=== PATIENT | male | born 1960 | race Caucasian/White ===

== ENCOUNTER → 2021-01-06 11:05 | Outpatient (CLI) | payer OTHER, SELFPAY ==
--- NOTE | ~2021-01-06 | US_ITS ---
US abdomen complete EXAMINATION: US Abdomen Complete INDICATION: Epigastric episodes PROCEDURE: Realtime High Resolution abdomen ultrasound. COMPARISON: No prior studies for comparison FINDINGS: Gallbladder within normal limits. No gallstones, gallbladder wall thickening or biliary di latation. There is a small amount of pericholecystic fluid. Common bile duct measures 5 mm. Liver echotexture is increased, consistent with fatty infiltration.. Pancreas within normal limits. Pancreatic tail is obscured by bowel gas. Spleen is enlarged measuring 13.3 cm. Renal echotexture i s within normal limits bilaterally without hydronephrosis, contour deforming mass or renal stone. Rig ht kidney measures 12.2 cm. Left kidney measures 13.4 cm. There are left renal cysts. Visualized aspects of the aorta and IVC are within normal limits. Portal vein is patent. No sonograph ic Miner's sign indicated by the technologist. IMPRESSION: 1: Hepatic steatosis. 2: Splenomegaly. 3: Possible pericholecystic fluid. Reviewed, dictated and finalized at location B.
== END ==
PROVIDERS: PCP Family Medicine Adolescent Medicine; Visit Provider Family Medicine Adolescent Medicine
DX: R10.13 Epigastric pain (principal); K76.0 Fatty (change of) liver, not elsewhere classified; R16.1 Splenomegaly, not elsewhere classified
CPT/HCPCS: 76700

== ENCOUNTER → 2021-01-11 12:33 | Outpatient (CLI) | payer OTHER, SELFPAY ==
--- NOTE | ~2021-01-11 | CT_ITS ---
EXAMINATION: CT abdomen w con INDICATION: Epigastric abdominal pain TECHNIQUE: Computed tomographic images of the abdomen were obtained after the administration of 100 c c of Omnipaque 350 intravenous contrast. The dose-length product (DLP) was 824.01 mGy-cm. Automated e xposure control and iterative reconstruction technique were employed. COMPARISON: 09/05/2007 FINDINGS: Minimal dependent atelectasis is present in the lung bases. The heart size is normal. The l iver is diffusely low in attenuation when compared with the spleen, consistent with hepatic steatosis . The spleen, pancreas, gallbladder, and adrenal glands are normal. Nonobstructing stones of the righ t kidney measure up to 6 mm. Cysts of the left kidney measure up to 2.6 cm there are no pathologicall y enlarged abdominal lymph nodes. There is an epigastric hernia to the right of midline containing fa t. A fat-containing umbilical hernia is also noted. There is mild lumbar spondylosis. There is no chanel e intraperitoneal gas or evidence of bowel obstruction. The appendix is normal. IMPRESSION: 1. No CT correlate for the patient's symptoms. 2. Fat-containing epigastric hernia to the right of midline in umbilical hernia containing fat. Reviewed, dictated and finalized at location A.
[2021-01-11 13:09] LABS: Estimated Glomerular Filt Rate > 60
== END ==
PROVIDERS: PCP Family Medicine Adolescent Medicine; Visit Provider Family Medicine Adolescent Medicine
DX: R10.13 Epigastric pain (principal); K43.9 Ventral hernia without obstruction or gangrene; N28.1 Cyst of kidney, acquired; K42.9 Umbilical hernia without obstruction or gangrene; M47.816 Spondylosis without myelopathy or radiculopathy, lumbar region
CPT/HCPCS: 74160; Q9967

== ENCOUNTER 2021-05-17 22:47 | Emergency (ER) | payer OTHER, SELFPAY ==
[2021-05-17] VITALS (8 sets, daily range): BP systolic 152–186; BP diastolic 112–116; PULSE 79–88; RESP 10–19; TEMP 37.1; O2SAT 98–100
[2021-05-17 23:32] LABS: Basophils Percent Auto 0.5 % (0.2-1.2); Eosinophils Absolute Auto 0.1 K/mm3 (0-0.3); Eosinophils Percent Auto 1.2 % (0-4.4); Hematocrit 41.9 % (42.0-52.0); Hemoglobin 13.8 g/dL (14.0-18.0); Immature Granulocyte Absolute 0.02 K/mm3 (0.00-0.031); Immature Granulocyte Percent A 0.3 % (0-0.5); Lymphocytes Absolute Auto 1.24 K/mm3 (0.9-3.2); Mean Corpuscular HGB Conc 32.9 g/dl (32-36); Mean Corpuscular Hemoglobin 31.1 pg (26-34); Mean Corpuscular Volume 94.4 fl (80-100); Mean Platelet Volume 9.7 fl (7.4-10.4); Monocytes Absolute Auto 0.6 K/mm3 (0.1-0.6); Monocytes Percent Auto 8.6 % (2.6-8.5); Neutrophils Absolute Auto 4.6 K/mm3 (1.3-6.7); Neutrophils Percent Auto 70.4 % (45.5-73.1); Platelet Count Result 228 k/mm3 (150-375); Red Blood Count 4.44 M/mm3 (4.6-6.20); Red Cell Distribution Width 12.3 % (11.5-14.5); White Blood Count 6.5 K/mm3 (4.5-10.0)
[2021-05-17 23:41] LABS: Alanine Aminotransferase 27 U/L (4-50); Albumin Level 4.5 g/dL (3.5-5.1); Alkaline Phosphatase 61 U/L (38-126); Anion Gap 4 mmol/L (8-16); Aspartate Amino Transferase 28 U/L (17-59); Bilirubin,Total 0.8 mg/dL (0.2-1.3); Blood Urea Nitrogen 14 mg/dL (9-20); Calcium 8.9 mg/dL (8.4-10.2); Carbon Dioxide 29 mmol/L (22-30); Chloride 102 mmol/L (98-107); Estimated CRCL calculation 108 ml/min; Estimated Glomerular Filt Rate > 60; Glucose 123 mg/dL (65-110); Lipase 57 U/L (23-300); Potassium 4.3 mmol/L (3.4-5.0); Sodium 135 mmol/L (137-145)
[2021-05-18] VITALS: PULSE 87; RESP 25; O2SAT 99
[2021-05-18 00:02] LABS: Add Urine Microscopic? YES; Appearance Urine Clear (Clear); Bilirubin Urine Negative (Negative); Blood Urine 1+ (Negative); Color Urine Straw (Yellow); Glucose Urine UA Negative (Negative); Ketones Urine Negative (Negative); Leukocyte Esterase Ur Negative LEU/UL (Negative); Nitrate Urine Negative (Negative); Protein Urine Negative (Negative); Urobilinogen Urine Negative mg/dL (<2.0); WBC Urine 0-3 /hpf
[2021-05-18 00:15] VITALS: PULSE 87; RESP 14; O2SAT 100
[2021-05-18 00:16] VITALS: BP 155/97; PULSE 87; RESP 16; O2SAT 100
[2021-05-18] MEDS: LIDOCAINE HCL 2% VISC SOLN 15 ML UDC 20 ML PO (00:20)
[2021-05-18] MEDS: MAG HYDROX/AL HYDROX/SIMETH 30 ML UDC PO (00:20)
--- NOTE | 2021-05-18 00:44 | ED.ABDPAIN ---
HPI - Abdominal Pain General Chief Complaint: Abdominal Pain Stated Complaint: abd pain Time Seen by Provider: 05/18/21 00:07 Source: patient History of Present Illness HPI narrative: Patient presents with epigastric pain radiating to his right abdomen. Pain was severe came on after drinking this evening also radiated to his back there is no clear aggravating or alleviating factors of the time of ER arrival he reports his symptoms were starting to improve. Reports a history of right upper quadrant pain being evaluated his primary care doctor without clear etiology. Denies any nausea vomiting or diarrhea. Denies any recent fevers, cough, congestion denies any prior abdominal surgeries. Related Data Allergies Allergy/AdvReac Type Severity Reaction Status Date / Time Quinolones Allergy Severe TOOK 1X Verified 05/18/21 00:13 PILL 06/25/07 Review of Systems Review of Systems: CONSTITUTIONAL: Denies fever, chills, or sweats. EYES: Denies visual changes, redness, or discharge. ENT: Denies rhinorrhea, congestion, sore throat, or otalgia. CARDIOVASCULAR: Denies chest pain, palpitations, or edema. RESPIRATORY: Denies cough or dyspnea. GASTROINTESTINAL: Denies nausea, vomiting, or diarrhea. GENITOURINARY: Denies dysuria or hematuria. SKIN: Denies rash or itching. MUSCULOSKELETAL: Denies back pain, joint pain, or myalgia. NEUROLOGIC: Denies headache, numbness, dizziness, or weakness. PSYCHIATRIC: Denies anxiety or depression. All systems reviewed & are unremarkable except as noted in HPI and below PMFSH Past Medical History Medical History (Updated 05/18/21 @ 00:55 by Mohit Hitchcock MD) GERD (gastroesophageal reflux disease) Social History Social History (Updated 05/18/21 @ 00:52 by Mohit Hitchcock MD) Living arrangements: with family Exam Narrative: GENERAL: Well-appearing, well-nourished, and in no acute distress. HEAD: Normocephalic, atraumatic. EYES: PERRLA and EOMI. ENT: Nares clear, no rhinorrhea or epistaxis. Mucous membranes moist. NECK: Supple. No masses. No JVD CHEST: Clear to auscultation. No respiratory distress. No wheezes rales or rhonchi HEART: Regular rate and rhythm. No murmur heard. Normal peripheral pulses. ABDOMEN: Soft, minimal pain with deep palpation most noted in the epigastric area negative Miner's nondistended, normal active bowel sounds. EXTREMITIES: Normal range of motion. No edema. SKIN: Warm, dry, no rash. NEURO: No focal deficits. Alert and oriented x3. PSYCH: Normal mood and affect. Course Reevaluation(s) Reevaluation #1: Results reviewed with patient. Patient feels much improved after GI cocktail. Patient was offered additional imaging however with negative work-up and reassuring exam there is likely low [id number] patient is comfortable without imaging. Patient is comfortable outpatient plan. Date: 05/18/21 Time: 00:53 Vital Signs Vital signs: Vital Signs Pulse Rate 85 05/17/21 22:57 Respiratory Rate 10 L 05/17/21 22:57 Pulse Oximetry 100 05/17/21 22:57 Temperature 37.1 C 05/17/21 22:58 Pulse Rate 85 05/18/21 01:31 Respiratory Rate 15 05/18/21 01:31 Blood Pressure 136/93 H 05/18/21 01:31 Pulse Oximetry 98 05/18/21 01:31 MDM - Abdominal Pain MDM Narrative Medical decision making narrative: H&P as above, vss, pt looks clinically well, exam with nonacute abdomen, labs reassuring, img offered, additional labs/img considered, symptomatic relief available as needed, patient treated with GI cocktail on reevaluation pt continues to looks clinically well and reports large improvement in symptoms. Suspect gastritis or reflux, dns pancreatitis, cholecystitis, bowel obstruction, perforation, severe sepsis. plan to tx/monitor as op w/ pcm f/u findings/plan discussed with pt, pt agree/comfortable with plan, return precautions given Lab Data Result diagrams: 05/17/21 23:18 05/17/21 23:18 Labs: Lab Results 05/17
[2021-05-18 01:31] VITALS: BP 136/93; PULSE 85; RESP 15; O2SAT 98
== END 2021-05-18 01:33 | disposition home or self-care (01) ==
PROVIDERS: Emergency Provider Emergency Medicine; PCP Family Medicine Adolescent Medicine
DX: R10.9 Unspecified abdominal pain (principal); K21.9 Gastro-esophageal reflux disease without esophagitis
CPT/HCPCS: 36415; 80053; 81001; 83690; 85025; 99283; A9270

== ENCOUNTER 2021-05-19 08:58 | Observation (INO) | payer OTHER, SELFPAY ==
[2021-05-19] VITALS (25 sets, daily range): BP systolic 135–176; BP diastolic 76–122; PULSE 70–85; RESP 14–25; TEMP 36.7–37; O2SAT 96–100; BMI 42.5
--- NOTE | ~2021-05-19 | XR_ITS ---
EXAMINATION: XR abdomen/kub 1V EXAM DATE: 05/19/2021 09:44 INDICATION: Abdominal pain ro kidney stone Right flank pain. TECHNIQUE: Frontal projection(s) of the abdomen for interpretation. Correlation is made to CT same da te. FINDINGS: The 6 mm right UPJ stone is identified, indicated. Nonobstructive bowel gas pattern. There are mild bony degenerative changes. IMPRESSION: Right UPJ stone identified. Reviewed, dictated and finalized at location B. GER TRUCK IMPRESSION: Right UPJ stone identified.
--- NOTE | ~2021-05-19 | CT_ITS ---
EXAMINATION: CT abdomen pelvis wo con EXAM DATE: 05/19/2021 09:40 INDICATION: Abdominal pain, right flank pain. Kidney stone. TECHNIQUE: Spiral CT of the abdomen and pelvis was performed without contrast. Axial, coronal and s agittal images of the abdomen and pelvis were reviewed. The dose-length product (DLP) for this exami [facility] was 1605.39 mGy-cm. The exposure was tailored according to patient size (auto mA exposure con trol), and iterative reconstruction (ASIR) was used as additional dose reduction technique. There is no prior study for comparison. FINDINGS: There is hepatic steatosis without suspicious focal lesion identified. Spleen, adrenal glan ds, pancreas are unremarkable. Gallbladder is unremarkable. No biliary obstruction. There is a 6 m m stone in the right UPJ, mild hydronephrosis. There is mild right perinephric fat stranding. There a re 2 additional punctate right inferior calyceal stones. The prostate is unremarkable. The bladder is unremarkable. There is no retroperitoneal or pelvic lymphadenopathy. There is mild scattered ar teriosclerotic disease. There is moderate-sized supraumbilical fat-containing hernia just right of mi dline. There is small umbilical fat-containing hernia. Small bilateral inguinal fat-containing hernia s. The appendix is normal. There is mild sigmoid colonic diverticulosis. There is no adjacent inflammat ory change to suggest diverticulitis. The stomach and small bowel are unremarkable. There is expecte d amount of colonic stool. No free intraperitoneal gas. The heart is normal in size. There are n o pericardial or pleural effusions. The lung bases are unremarkable. There are no osteoblastic or o steolytic lesions identified. IMPRESSION: 1. Right UPJ 6 mm stone, mild obstructive nephropathy. 2. Additional punctate right nephrolithiasis. 3. Scattered sigmoid diverticulosis. 4. Fat-containing hernias. Reviewed, dictated and finalized at location B. L DESIGN SPECIALIST
--- NOTE | ~2021-05-19 | XR_ITS ---
EXAMINATION: XR abdomen/kub 1V DATE: 05/20/2021 08:37 INDICATION: Renal stone. TECHNIQUE: A supine view of the abdomen on 2 radiographs was obtained. COMPARISON: CT abdomen and pelvis 05/19/2021 FINDINGS: There is a phlebolith in right pelvis. There is a 5 mm stone in proximal right ureter. Ther e are no dilated loops of bowel. IMPRESSION: 1. 5 mm stone in proximal right ureter. Reviewed, dictated and finalized at location A. EE MAKER
--- NOTE | 2021-05-19 09:26 | ED.MALEGU ---
HPI - Male Genitourinary General Chief complaint: Urogenital-Male Stated complaint: back pain Time Seen by Provider: 05/19/21 09:14 Source: patient Mode of arrival: ambulatory Limitations: no limitations History of Present Illness HPI Narrative: 61 y/o male presents today with complaints of right sided flank/abdominal pain with difficutly urinating that stareted 2-3 days ago. Patient seen here Sunday with the same complaints. Pain is worse today with some nausea and vomiting this am so patient returned. Related Data Allergies Allergy/AdvReac Type Severity Reaction Status Date / Time Quinolones Allergy Severe TOOK 1X Verified 05/18/21 00:13 PILL 06/25/07 Review of Systems Review of Systems: CONSTITUTIONAL: Denies fever, chills, or sweats. EYES: Denies visual changes, redness, or discharge. ENT: Denies rhinorrhea, congestion, sore throat, or otalgia. CARDIOVASCULAR: Denies chest pain, palpitations, or edema. RESPIRATORY: Denies cough or dyspnea. GASTROINTESTINAL: Positive for right flank and abdominal pain with episode of nausea and vomiting this morning. Denies diarrhea. GENITOURINARY: Decreased urination. Denies dysuria or hematuria. SKIN: Denies rash or itching. MUSCULOSKELETAL: Denies back pain, joint pain, or myalgia. NEUROLOGIC: Denies headache, numbness, dizziness, or weakness. PSYCHIATRIC: Denies anxiety or depression. PMFSH Past Medical History Medical History GERD (gastroesophageal reflux disease) Exam Narrative: GENERAL: Well-appearing, well-nourished, and in no acute distress. HEAD: Normocephalic, atraumatic. EYES: PERRLA and EOMI. ENT: Nares clear, no rhinorrhea or epistaxis. Mucous membranes moist. Oropharynx without tonsillar hypertrophy exudate or other lesions. Bilateral TMs pearly zapata nonbulging NECK: Supple. No adenopathy or masses. No carotid bruits or JVD CHEST: Clear to auscultation. No respiratory distress. No wheezes rales or rhonchi HEART: Regular rate and rhythm. No murmur heard. Normal peripheral pulses. ABDOMEN: Soft, nontender, nondistended, normal active bowel sounds. EXTREMITIES: Normal range of motion. No edema. SKIN: Warm, dry, no rash. NEURO: No focal deficits. Alert and oriented x3. PSYCH: Normal mood and affect. Course Course Emergency Course: Patient with tolerable pain after 4 mg of morphine. Patient aware of results and that he has a kidney stone. Patient discussed plan of care with Dr. Guadalupe and me. Plan for admission for pain management and lithotripsy tomorrow. at bedside all in agreement with plan of care Consultations Consultation #1: Dr. Guadalupe consulted. Patient to be admitted under his services as observation for pain management and planned lithotripsy tomorrow. Date: 05/19/21 Time: 11:25 Vital Signs Vital signs: Vital Signs Temperature 36.8 C 05/19/21 09:02 Pulse Rate 84 05/19/21 09:02 Respiratory Rate 14 05/19/21 09:02 Blood Pressure 176/122 H 05/19/21 09:02 Pulse Oximetry 99 05/19/21 09:02 Temperature 36.8 C 05/19/21 11:34 Pulse Rate 78 05/19/21 11:00 Respiratory Rate 14 05/19/21 11:00 Blood Pressure 161/85 H 05/19/21 11:00 Pulse Oximetry 100 05/19/21 11:00 MDM - Male Genitourinary Differential Diagnosis Differential diagnosis: Likely urinary tract infection, acute retention of urine and other (Kidney stone,) Lab Data Result diagrams: 05/19/21 09:22 05/19/21 09:22 Labs: Lab Results 05/19/21 05/19/21 05/19/21 Range/Units 09:22 09:22 10:02 WBC 6.8 (4.5-10.0) K/mm3 RBC 4.95 (4.6-6.20) M/mm3 Hgb 15.2 (14.0-18.0) g/dL Hct 46.3 (42.0-52.0) % MCV 93.5 (80-100) fl MCH 30.7 (26-34) pg MCHC 32.8 (32-36) g/dl RDW 12.3 (11.5-14.5) % Plt Count 250 (150-375) k/mm3 MPV 9.7 (7.4-10.4) fl Immature Gran % (Auto) 0.1 (0-0.5) % Neut % (Auto) 81.8 H (45.5-73.1) % Lymp
[2021-05-19 09:29] LABS: Basophils Percent Auto 0.4 % (0.2-1.2); Eosinophils Percent Auto 0.3 % (0-4.4); Hematocrit 46.3 % (42.0-52.0); Hemoglobin 15.2 g/dL (14.0-18.0); Immature Granulocyte Absolute 0.01 K/mm3 (0.00-0.031); Immature Granulocyte Percent A 0.1 % (0-0.5); Lymphocytes Absolute Auto 0.78 K/mm3 (0.9-3.2); Lymphocytes Percent Auto 11.5 % (18.3-44.2); Mean Corpuscular HGB Conc 32.8 g/dl (32-36); Mean Corpuscular Hemoglobin 30.7 pg (26-34); Mean Corpuscular Volume 93.5 fl (80-100); Mean Platelet Volume 9.7 fl (7.4-10.4); Monocytes Absolute Auto 0.4 K/mm3 (0.1-0.6); Monocytes Percent Auto 5.9 % (2.6-8.5); Neutrophils Absolute Auto 5.6 K/mm3 (1.3-6.7); Neutrophils Percent Auto 81.8 % (45.5-73.1); Platelet Count Result 250 k/mm3 (150-375); Red Blood Count 4.95 M/mm3 (4.6-6.20); Red Cell Distribution Width 12.3 % (11.5-14.5); White Blood Count 6.8 K/mm3 (4.5-10.0)
[2021-05-19] MEDS: ONDANSETRON INJ 4 MG/2 ML VIAL IV PUSH (09:30)
[2021-05-19] MEDS: SODIUM CHLORIDE 0.9% IV 1,000 ML 999 ML IV CONT (09:30)
[2021-05-19] MEDS: MORPHINE SULFATE (*CRX) 4 MG/ML INJ 2 MG IV PUSH (09:31)
--- NOTE | 2021-05-19 09:36 | PC.NURSE ---
Patient states he cannot urinate at this time.
[2021-05-19 09:38] LABS: Alanine Aminotransferase 31 U/L (4-50); Albumin Level 4.8 g/dL (3.5-5.1); Alkaline Phosphatase 72 U/L (38-126); Anion Gap 6 mmol/L (8-16); Aspartate Amino Transferase 35 U/L (17-59); Bilirubin,Total 0.9 mg/dL (0.2-1.3); Blood Urea Nitrogen 13 mg/dL (9-20); Calcium 9.2 mg/dL (8.4-10.2); Carbon Dioxide 27 mmol/L (22-30); Chloride 103 mmol/L (98-107); Estimated CRCL calculation 108 ml/min; Estimated Glomerular Filt Rate > 60; Glucose 135 mg/dL (65-110); Lipase 50 U/L (23-300); Potassium 4.4 mmol/L (3.4-5.0); Sodium 136 mmol/L (137-145)
[2021-05-19 10:18] LABS: Add Urine Microscopic? YES; Appearance Urine Clear (Clear); Bacteria Urine Trace /hpf; Bilirubin Urine Negative (Negative); Blood Urine 2+ (Negative); Color Urine Straw (Yellow); Glucose Urine UA Negative (Negative); Ketones Urine Negative (Negative); Leukocyte Esterase Ur Negative LEU/UL (Negative); Nitrate Urine Negative (Negative); Protein Urine Negative (Negative); RBC Urine 0-2 /hpf (0-2); Specific Grav Ur 1.006 (1.001-1.035); Urobilinogen Urine Negative mg/dL (<2.0); WBC Urine 0-3 /hpf
[2021-05-19] MEDS: MORPHINE SULFATE (*CRX) 4 MG/ML INJ IV PUSH ×3 (11:04→23:34)
--- NOTE | 2021-05-19 11:39 | PM.IMHP ---
H&P: HPI History of Present Illness Date/Time: 05/19/21 11:39 This pleasant 61-year-old has been in the emergency room at [facility] twice in the last 3 days with right upper quadrant and right flank pain. Initially he was thought to have GE reflux. Today, with more intense pain, axial imaging demonstrates an obstructing 6 mm calcified right proximal ureteral calculus. In addition to pain he has reported nausea and vomiting but denies fevers chills or gross hematuria. Additionally, he has a history of urethral stricture disease requiring dilatation many years ago. He recently he has noticed markedly increased urinary frequency with urgency and episodes of scant urge incontinence. He also reports an intermittently obstructed stream. Chief Complaint: Right flank pain Review of Systems Cardiovascular: Cardiovascular: Denies chest pain, Denies lightheadedness, Denies palpitations and Denies dyspnea Respiratory: Respiratory: Denies dyspnea Gastrointestinal: Gastrointestinal: Denies diarrhea, Denies nausea and Denies vomiting Genitourinary: Genitourinary: Denies hematuria and Denies dysuria Endocrine: Endocrine: Denies palpitations [facility] Past Medical History Medical History GERD (gastroesophageal reflux disease) Meds Home Medications and Allergies Home Medications Medication Instructions Recorded Confirmed Type desvenlafaxine 50 mg 50 mg PO DAILY #90 tablet 03/23/21 Rx tablet,extended release 24 hr famotidine [Pepcid] 40 mg PO HS #30 tablet 05/18/21 Rx Allergies Allergy/AdvReac Type Severity Reaction Status Date / Time Quinolones Allergy Severe TOOK 1X Verified 05/18/21 00:13 PILL 06/25/07 Vital Signs Vital Signs - 24 hr 05/19/21 09:02 05/19/21 10:01 05/19/21 10:30 Temperature 98.2 F 98.2 F Pulse Rate 84 75 Respiratory Rate 14 15 Blood Pressure 176/122 H 159/103 H Pulse Oximetry 99 99 05/19/21 11:00 Temperature Pulse Rate 78 Respiratory Rate 14 Blood Pressure 161/85 H Pulse Oximetry 100 Exam Const: General: no acute distress Resp: Effort & Inspection: normal respiratory effort GI: Inspection: non-distended GI Palp: No abdominal tenderness and No Guarding due to palpation present (GI) Auscultation: normal bowel sounds H&P: Results Labs Labs: Short CBC 05/19/21 Range/Units 09:22 WBC 6.8 (4.5-10.0) K/mm3 Hgb 15.2 (14.0-18.0) g/dL Hct 46.3 (42.0-52.0) % Plt Count 250 (150-375) k/mm3 BMP 05/19/21 09:22 Sodium 136 L Potassium 4.4 Chloride 103 Carbon Dioxide 27 BUN 13 Creatinine 0.90 Glucose 135 H Calcium 9.2 Liver Function 05/19/21 Range/Units 09:22 Total Bilirubin 0.9 (0.2-1.3) mg/dL AST 35 (17-59) U/L ALT 31 (4-50) U/L Alkaline Phosphatase 72 (38-126) U/L Albumin 4.8 (3.5-5.1) g/dL Urine 05/19/21 Range/Units 10:02 Urine Color Straw (Yellow) Urine Appearance Clear (Clear) Urine pH 7.0 (5.0-9.0) Ur Specific [place] 1.006 (1.001-1.035) Urine Protein Negative (Negative) mg/dL Urine Glucose (UA) Negative (Negative) mg/dL Assessment and Plan Assessment and plan (1) Right ureteral calculus: Code(s): N20.1 - Calculus of ureter Status: Acute (2) Bladder outlet obstruction: Code(s): N32.0 - Bladder-neck obstruction Status: Acute Assessment and Plan: Patient will be admitted overnight for hydration and analgesics for his obstructing right ureteral stone. Will plan right ESWL tomorrow. At the time of ESWL will plan cystoscopy with possible urethral dilatation to further evaluate his obstructive voiding symptoms.
[2021-05-19] MEDS: SODIUM CHLORIDE 0.9% IV 1,000 ML 100 ML IV CONT ×2 (11:47→20:13)
[2021-05-20] VITALS (10 sets, daily range): BP systolic 129–158; BP diastolic 73–94; PULSE 78–87; RESP 12–20; TEMP 35.9–36.6; O2SAT 93–100
[2021-05-20] MEDS: MORPHINE SULFATE (*CRX) 4 MG/ML INJ IV PUSH ×2 (03:13→06:47)
[2021-05-20 04:40] LABS: Basophils Percent Auto 0.4 % (0.2-1.2); Eosinophils Absolute Auto 0.1 K/mm3 (0-0.3); Eosinophils Percent Auto 1.8 % (0-4.4); Hematocrit 38.3 % (42.0-52.0); Hemoglobin 12.5 g/dL (14.0-18.0); Immature Granulocyte Absolute 0.01 K/mm3 (0.00-0.031); Immature Granulocyte Percent A 0.1 % (0-0.5); Lymphocytes Absolute Auto 1.76 K/mm3 (0.9-3.2); Lymphocytes Percent Auto 25.9 % (18.3-44.2); Mean Corpuscular HGB Conc 32.6 g/dl (32-36); Mean Corpuscular Hemoglobin 30.7 pg (26-34); Mean Corpuscular Volume 94.1 fl (80-100); Mean Platelet Volume 9.7 fl (7.4-10.4); Monocytes Absolute Auto 0.9 K/mm3 (0.1-0.6); Monocytes Percent Auto 12.5 % (2.6-8.5); Neutrophils Percent Auto 59.3 % (45.5-73.1); Platelet Count Result 222 k/mm3 (150-375); Red Blood Count 4.07 M/mm3 (4.6-6.20); Red Cell Distribution Width 12.5 % (11.5-14.5); White Blood Count 6.8 K/mm3 (4.5-10.0)
[2021-05-20 06:04] LABS: Alanine Aminotransferase 25 U/L (4-50); Albumin Level 4.1 g/dL (3.5-5.1); Alkaline Phosphatase 47 U/L (38-126); Anion Gap 7 mmol/L (8-16); Aspartate Amino Transferase 29 U/L (17-59); Bilirubin,Total 0.9 mg/dL (0.2-1.3); Blood Urea Nitrogen 13 mg/dL (9-20); Calcium 8.1 mg/dL (8.4-10.2); Carbon Dioxide 26 mmol/L (22-30); Chloride 105 mmol/L (98-107); Estimated CRCL calculation 111 ml/min; Estimated Glomerular Filt Rate > 60; Glucose 110 mg/dL (65-110); Potassium 4.1 mmol/L (3.4-5.0); Sodium 138 mmol/L (137-145)
--- NOTE | 2021-05-20 08:22 | PC.NURSE ---
To OR per светлана, IV RAC.
--- NOTE | 2021-05-20 09:21 | WPDHPUPDATE1 ---
History and Physical Update Update Date/Time: 05/20/21 09:21 History and Physical has been reviewed, including an updated exam of the patient. There are NO changes in the patient's condition. Risks, benefits, and alternatives have been discussed and questions answered. Patient agrees to proceed with procedure. Proceed with cystoscopy, possible urethral dilation, ESWL of right ureteral calculus
--- NOTE | 2021-05-20 09:40 | WPDANESEPPF ---
Anes - Initial Pre Proc Eval Procedure: Operation Date: 05/20/21 10:00 Proposed Procedures p Right Extracorporeal Shock Wave Lithotripsy, - Darci Garcia MD s Cystoscopy, Possible Urethral Dilatation - Darci Garcia MD Date/Time: 05/20/21 09:40 Surgeon: Daisy Toledo PA-C Pre Op Diagnosis: renal calculus Patient Data Age: 61 Gender: M Height: 1.83 m Weight: 142.1 kg Last Vital Signs Temp 97.8 F 05/20/21 08:46 Pulse 87 05/20/21 08:46 Resp 18 05/20/21 08:46 BP 158/92 H 05/20/21 08:46 Pulse Ox 98 05/20/21 08:46 Allergies Allergy/AdvReac Type Severity Reaction Status Date / Time Quinolones Allergy Severe TOOK 1X Verified 05/19/21 14:36 PILL 08 Home Medications Medication Instructions Recorded Confirmed Type desvenlafaxine 50 mg 50 mg PO DAILY #90 tablet 03/23/21 05/19/21 Rx tablet,extended release 24 hr candesartan 32 mg PO DAILY 05/19/21 05/19/21 History esomeprazole magnesium 40 mg PO DAILY 05/19/21 05/19/21 History ezetimibe 10 mg PO DAILY 05/19/21 05/19/21 History meloxicam 15 mg PO DAILY 05/19/21 05/19/21 History Laboratory Tests 05/19/21 05/20/21 05/20/21 10:02 04:18 05:31 WBC 6.8 K/mm3 K/mm3 (4.5-10.0) RBC 4.07 M/mm3 L M/mm3 (4.6-6.20) Hgb 12.5 g/dL L g/dL (14.0-18.0) Hct 38.3 % L % (42.0-52.0) MCV 94.1 fl fl (80-100) MCH 30.7 pg pg (26-34) MCHC 32.6 g/dl g/dl (32-36) RDW 12.5 % % (11.5-14.5) Plt Count 222 k/mm3 k/mm3 (150-375) MPV 9.7 fl fl (7.4-10.4) Immature Gran % (Auto) 0.1 % % (0-0.5) Neut % (Auto) 59.3 % % (45.5-73.1) Lymph % (Auto) 25.9 % % (18.3-44.2) [place] % (Auto) 12.5 % H % (2.6-8.5) Eos % (Auto) 1.8 % % (0-4.4) Baso % (Auto) 0.4 % % (0.2-1.2) Lymph # (Auto) 1.76 K/mm3 K/mm3 (0.9-3.2) [place] # (Auto) 0.9 K/mm3 H K/mm3 (0.1-0.6) Eos # (Auto) 0.1 K/mm3 K/mm3 (0-0.3) Baso # (Auto) 0.0 K/mm3 K/mm3 (0.0-0.1) Abs Immat Gran (auto) 0.01 K/mm3 K/mm3 (0.00-0.031) Absolute Neuts (auto) 4.0 K/mm3 K/mm3 (1.3-6.7) Absolute Nucleated RBC 0.0 K/mm3 K/mm3 (0.0-0.012) Nucleated RBC % 0.0 % % (0.0-0.2) Sodium 138 mmol/L mmol/L (137-145) Potassium 4.1 mmol/L mmol/L (3.4-5.0) Chloride 105 mmol/L mmol/L (98-107) Carbon Dioxide 26 mmol/L mmol/L (22-30) Anion Gap 7 mmol/L L mmol/L (8-16) BUN 13 mg/dL mg/dL (9-20) Creatinine 0.90 mg/dL mg/dL (0.7-1.3) Estim Creat Clear Calc 111 ml/min ml/min Estimated GFR > 60 (59 - ) Glucose 110 mg/dL mg/dL (65-110) Calcium 8.1 mg/dL L mg/dL (8.4-10.2) Total Bilirubin 0.9 mg/dL mg/dL (0.2-1.3) AST 29 U/L U/L (17-59) ALT 25 U/L U/L (4-50) Alkaline Phosphatase 47 U/L U/L (38-126) Total Protein 7.0 g/dL g/dL (6.3-8.2) Albumin 4.1 g/dL g/dL (3.5-5.1) Urine Color Straw (Yellow) Urine Appearance Clear (Clear) Urine pH 7.0 (5.0-9.0) Ur Specific [place] 1.006 (1.001-1.035) Urine Protein Negative mg/dL mg/dL (Negative) Urine Glucose (UA) Negative mg/dL mg/dL (Negative) Urine Ketones Negative mg/dL mg/dL (Negative) Ur Blood (Man) 2+ H (Negative) Urine Nitrate Negative (Negative) Urine Bilirubin Negative (Negative) Urine Urobilinogen Negative mg/dL mg/dL (<2.0) Leukocyte Esterase Rfl Negative NASIM/UL NASIM/UL (Negative) Urine RBC 0-2 /hpf /hpf (0-2) Urine WBC 0-3 /hpf /hpf Urine Bacteria Trace /hpf /hpf Patient hx anesthesia problems: none Family hx anesthesia problem
[2021-05-20] MEDS: ceFAZolin 3 GM/D5W 100 ML 100 ML IVPB (09:49)
[2021-05-20] MEDS: LIDOCAINE HCL 2% GEL UROJET 10 ML PKG MUCOUS MEM (10:06)
[2021-05-20 10:07] LABS: Partial Thromboplastin Time 33.5 SECONDS (22.3-36.8)
--- NOTE | 2021-05-20 10:39 | P.OP_ITS ---
Procedure Note - Detailed Date of Procedure 05/20/21 Pre-op Diagnosis Right ureteral calculus , history of urethral stricture Post-op Diagnosis Same Procedure Performed Flexible cystoscopy, ESWL right ureteral calculus Surgeon Darci Garcia MD Anesthesia General Findings Mild narrowings in the membranous and bulbar urethra but adequate for passage of the 16 Japanese scope Description of Procedure Patient is taken to the operative suite correctly identified. Once anesthesia was obtained was prepped draped usual sterile fashion. Sixteen Japanese flexible cystoscope inserted into the urethra. He has slight narrowing in the membranous urethra as well as in the bulbar urethra. However the scope easily passed these areas. Prostate has some mild lateral lobe hypertrophy. The bladder itself has no evidence of tumors. Both ureteral orifices normal anatomic position. 1+ trabeculation noted. Scope was removed. Patient was then repositioned and the right ureteral stone was visualized in both planes. Three thousand shocks were given the stone. Patient tolerated procedure well without any complications taken recovery stable condition. He will be returned to the floor and if he does well be discharged home later today. He can follow up with Dr. Guadalupe in approximately 10 days with a KUB. Urine Output 1,000 Drains No Packing No Pathology None sent Complications No immediate complications Condition Stable Disposition PACU
[2021-05-20] MEDS: LACTATED RINGERS 1,000 ML 30 ML IV CONT ×2 (10:51)
--- NOTE | 2021-05-20 12:10 | PC.NURSE ---
Returned from OR per stretcher . Report received from shante SETHI. Pt denies c/o pain, no n/v, no dizziness, pt resting in bed at this time.
--- NOTE | 2021-07-05 13:04 | P.DS_ITS ---
DS: Admitting Diagnosis Discharge Date 05/20/21 Admitting Diagnosis Right Ureteral Calculi. DS: Discharge Diagnosis Discharge Diagnosis (1) Right ureteral calculus: Code(s): N20.1 - Calculus of ureter Status: Acute (2) Bladder outlet obstruction: Code(s): N32.0 - Bladder-neck obstruction Status: Acute DS: Summary Hospital Course Hospital Course: See note below Time Spent with Patient Time attestation: The patient underwent a flexible cystoscopy and right ESWL on 05/20/[address] Trista Garcia. He tolerated the procedure well was then transferred to recovery and then home afterward. He had no immediate post operative complications and tolerated diet afterward as well as some light ac tivity. He was discharged home to resume previous medications, a regular diet, no activity restrictions. He will plan to follow up in 2 weeks with a KUB to determine stone placement. Findings of his procedure included mild narrowings in the membranous and bulbar urethra, as well as passing a 16 fr scope easily. Exam Resp: Effort & Inspection: normal respiratory effort Cardio: Rate: regular rate GI: GI Palp: Yes Soft to palpation and No Tenderness to palpation present (GI) : General: Yes no CVA tenderness Extrem: General: no edema Discharge Plan Discharge Consulting providers: Anthony Wallace ; Darci Garcia ; Lauri Guadalupe ; Mahesh Ovalle V. ; Daisy Toledo Discharging Clinician: Darci Garcia Patient Disposition: Home, Self-Care Activity: july shower Diet: as tolerated Discharge Instructions: Follow up with Dr. Guadalupe in 7-10 days with KUB. Call for appointment. Ultram and Bactrim sent to his pharmacy Patient Instructions: Antibiotic Form, Lithotripsy (DC) Stand Alone Forms: General Discharge Information Follow-up/Referrals: Lauri Guadalupe MD [Physician] - 1 Week Discharge Medications: Continued meloxicam 15 mg tablet 15 mg PO DAILY RF: 0 esomeprazole magnesium 40 mg capsule,delayed release(DR/EC) 40 mg PO DAILY RF: 0 candesartan 32 mg tablet 32 mg PO DAILY RF: 0 desvenlafaxine 50 mg tablet extended release 24 hr 50 mg PO DAILY Qty: 90 RF: 1 No Action ezetimibe 10 mg tablet 10 mg PO DAILY Qty: 90 RF: 1 Date of admission: 05/19/21 11:33 Primary Care Provider: Braulio Luu Admitting Provider: Kiran See Attending physician on admission: Daisy Toledo Condition: Stable
== END 2021-05-20 15:39 | disposition home or self-care (01) ==
LOC: ANHED 12:39 → ANH2MED 14:16
PROVIDERS: Emergency Medicine; Urology; Admitting Provider Internal Medicine; Emergency Provider Nurse Practitioner Family; PCP Family Medicine Adolescent Medicine; Visit Provider Physician Assistant
PROC: (CPT 50590; principal; 2021-05-20 10:00)
PROC: 0T7D8ZZ Dilation of Urethra, Via Natural or Artificial Opening Endoscopic (ICD-10-PCS; CPT 52281; 2021-05-20 10:00)
DX: N20.1 Calculus of ureter (principal); N32.0 Bladder-neck obstruction; N35.919 Unspecified urethral stricture, male, unspecified site; K21.9 Gastro-esophageal reflux disease without esophagitis
CPT/HCPCS: 50590; 36415; 74018; 74176; 80053; 81001; 83690; 85025; 85610; 85730; 96361; 96374; 96375; 96376; 99285; A9270; G0378; J0690; J1100; J2250; J2270; J2405; J2704; J3010; J7030; J7120

== ENCOUNTER 2021-05-25 08:41 | Outpatient (CLI) | payer OTHER, SELFPAY ==
--- NOTE | ~2021-05-25 | XR_ITS ---
EXAMINATION: XR abdomen/kub 1V INDICATION: Right-sided kidney stone TECHNIQUE: Supine views of the abdomen were obtained on 2 radiographs. COMPARISON: 05/20/2021 FINDINGS: The previously described 5 mm stone of the right proximal ureter is now seen in the right d istal ureter. There is a phlebolith right pelvis. The bowel gas pattern is normal. IMPRESSION: 1. Interval distal migration of the previously described 5 mm right ureteral stone now seen in the di stal ureter. Reviewed, dictated and finalized at location B. NIC SECTION TECHNICAL LEAD IMPRESSION: 1. Interval distal migration of the previously described [address] one now seen in the distal ureter.
== END 2021-05-25 08:42 | disposition home or self-care (01) ==
LOC: ANHIMG 08:43
PROVIDERS: PCP Family Medicine Adolescent Medicine; Visit Provider Urology
DX: N20.1 Calculus of ureter (principal)
CPT/HCPCS: 74018

== ENCOUNTER 2021-06-08 08:23 | Outpatient (CLI) | payer OTHER, SELFPAY ==
--- NOTE | ~2021-06-08 | XR_ITS ---
EXAMINATION: XR abdomen/kub 1V INDICATION: Kidney stone, recent lithotripsy TECHNIQUE: Supine views of the abdomen were obtained on 2 radiographs. COMPARISON: 05/25/2021 FINDINGS: There has been slight interval distal migration of a previously described 5 mm stone in the right distal ureter. There is a phlebolith right pelvis. Mild osteoarthritis is noted in the hips. T he bowel gas pattern is normal. IMPRESSION: 1. Slight interval distal migration of a 5 mm stone in the right distal ureter. Reviewed, dictated and finalized at location B.
== END 2021-06-08 08:24 | disposition home or self-care (01) ==
LOC: ANHIMG 08:27
PROVIDERS: PCP Family Medicine Adolescent Medicine; Visit Provider Urology
DX: N20.1 Calculus of ureter (principal); M16.0 Bilateral primary osteoarthritis of hip
CPT/HCPCS: 74018

== ENCOUNTER 2021-08-10 10:29 | Outpatient (CLI) | payer OTHER, SELFPAY ==
--- NOTE | ~2021-08-10 | XR_ITS ---
XR abdomen/kub 1V 08/10/2021 10:41 Indication: Right kidney stones Procedure: KUB Comparison: Comparison to multiple prior studies sequentially, with oldest reviewed study dated 05/2021. Findings: Bowel gas pattern is nonobstructive. Pelvic phleboliths. No acute osseous abnormality. Mild lumbar spondylosis. Impression: 1: No acute abdominal abnormality. No definite renal stones identified. Reviewed, dictated and finalized at location A. Impression: 1: No acute abdominal abnormality. No definite renal stones identified.
== END 2021-08-10 10:30 | disposition home or self-care (01) ==
PROVIDERS: PCP Family Medicine Adolescent Medicine; Visit Provider Urology
DX: N20.0 Calculus of kidney (principal); M47.816 Spondylosis without myelopathy or radiculopathy, lumbar region
CPT/HCPCS: 74018

== ENCOUNTER 2021-11-22 14:39 | Outpatient (CLI) | payer OTHER, SELFPAY ==
--- NOTE | ~2021-11-22 | US_ITS ---
EXAMINATION: US venous doppler LE RT DATE: 11/22/2021 15:41 INDICATION: Right lower limb pain and swelling TECHNIQUE: Alvarado scale images without and with compression and Doppler images of the right lower extre mity veins were obtained. COMPARISON: None FINDINGS: The right common femoral vein, profunda femoral vein, femoral vein, popliteal vein, peronea l trunk, posterior tibial veins, and greater saphenous vein are patent. Dilated varicose veins are no erika. IMPRESSION: 1. Patent right lower extremity veins. No evidence of deep venous thrombosis. Reviewed, dictated and finalized at location B.
== END 2021-11-22 14:40 | disposition home or self-care (01) ==
LOC: ANHIMG 14:43
PROVIDERS: PCP Family Medicine Adolescent Medicine; Visit Provider Physician Assistant
DX: M79.89 Other specified soft tissue disorders (principal)
CPT/HCPCS: 93971

== ENCOUNTER 2022-02-11 12:44 | Observation (INO) | payer OTHER, SELFPAY ==
[2022-02-11] VITALS (7 sets, daily range): BP systolic 141–181; BP diastolic 79–101; PULSE 75–99; RESP 16–20; TEMP 36.6–36.8; O2SAT 95–100; BMI 40.6
--- NOTE | ~2022-02-11 | XR_ITS ---
EXAMINATION: XR retrograde pyelogram RT DATE: 02/12/2022 11:10 PHLEBOTOMY TECHNICIAN INDICATION: RIGHT STONE EXTRACTION . TECHNIQUE: 3 fluoroscopic images of the right abdomen and pelvis, including cine clips of 107, 104, a nd 62 images were obtained during right retrograde pyelography with stone extraction performed by the surgeon. I was not present in the operating room. Fluoroscopy exposure time was 63.1 seconds. DAP 2. 56 mGym2. COMPARISON: CT abdomen and pelvis 02/11/2022 FINDINGS: 7 mm right UVJ stone. The stone is displaced proximally following cannulation and contrast instillati on into the right ureter. Moderate right hydronephrosis wire access accomplished renal pelvis. No add itional filling defect detected. IMPRESSION: Fluoroscopic documentation of right retrograde pyelography and stone extraction. Please refer to the operative note for complete procedural details . Reviewed, dictated and finalized at location K. BOTOMY TECHNICIAN IMPRESSION: Fluoroscopic documentation of right retrograde pyelography and stone extraction . Please refer to the operative note for complete procedural details .
--- NOTE | ~2022-02-11 | CT_ITS ---
EXAMINATION: CT abdomen pelvis wo con DATE: 02/11/2022 13:43 INDICATION: Right flank pain. History of kidney stones, prior right lithotripsy. TECHNIQUE: Computed tomography (CT) of the abdomen and pelvis was performed without intravenous contr ast. Automated exposure control and iterative reconstruction technique were employed. Exam dose: 124 1.74 mGy-cm total exam DLP. COMPARISON: 05/19/2021 CT abdomen pelvis FINDINGS: The lung bases are clear. Normal heart size. No pericardial or pleural effusion. Diffuse hepatic steatosis. No hepatic, splenic, pancreatic or adrenal space-occupying mass lesion is evident. No bile duct or pancreatic duct dilatation. There is a 5 x 7 mm right ureterovesical junction calculus with moderate right hydroureteronephrosis and prominent right perinephric and periureteral stranding. No other urinary tract calculus is noted. There are approximately 2 approximately 1.8 cm left renal probable cysts; evaluation of renal lesions is limited on this noncontrast examination. Normal caliber of the abdominal aorta. No intraperitoneal or retroperitoneal or pelvic mass lesion or adenopathy or ascites. There is prostate enlargement with moderate diffuse bladder wall thickening. There is diverticulosis of the sigmoid colon primarily. No CT evidence of diverticulitis. No bowel ob struction, bowel wall thickening, pneumatosis or intraperitoneal free air. Normal appendix. Small fat-containing bilateral inguinal hernias. Small fat-containing umbilical hernia. Included skeletal structures are unremarkable. IMPRESSION: 5 x 7 mm right ureterovesical junction with moderately prominent right hydroureteronephr osis and prominent right perinephric and periureteral stranding No other urinary tract calculus Probable left renal approximately 1.8 cm cysts Hepatic steatosis Diverticulosis of the colon; no evidence of diverticulitis Normal appendix Small fat-containing umbilical hernia and bilateral inguinal hernias Reviewed, dictated and finalized at Location A. Reviewed, dictated and finalized at location A. OGRAPH TRANSFERRER IMPRESSION: 5 x 7 mm right ureterovesical junction with moderately prominent r ight hydroureteronephrosis and prominent right perinephric and periureteral str anding No other urinary tract calculus Probable left renal approximately 1.8 cm cysts Hepatic steatosis Diverticulosis of the colon; no evidence of diverticulitis Normal appendix Small fat-containing umbilical hernia and bilateral inguinal hernias
--- NOTE | 2022-02-11 12:55 | ED.BACK ---
HPI - Back Pain/Injury General Chief Complaint: Back Pain/Injury Stated Complaint: right flank pain (PMH of stones) Time Seen by Provider: 02/11/22 12:55 Source: patient and family Limitations: no limitations History of Present Illness HPI Narrative: Right flank pain radiating to right lower quadrant started last night, denies any aggravating or relieving factors, associated with nausea and vomiting. He denies any fever or chills. History of kidney stone. Related Data Home Medications Medication Instructions Recorded Confirmed ezetimibe 10 mg tablet 10 mg PO DAILY 11/22/21 11/22/21 Allergies Allergy/AdvReac Type Severity Reaction Status Date / Time Quinolones Allergy Severe TOOK 1X Verified 02/11/22 13:25 PILL 06/25/07 atorvastatin AdvReac Unknown Unknown Uncoded 02/11/22 13:25 Review of Systems Review of Systems: All systems reviewed & are unremarkable except as noted in HPI and below PMFSH Past Medical History Medical History Bladder outlet obstruction GERD (gastroesophageal reflux disease) Kidney stone on right side Right ureteral calculus Family History Family History Father Diabetes mellitus Hypertension Mother Hypertension Dementia Social History Social History Smoking status: Never smoker Second hand tobacco smoke exposure: No Alcohol intake: current Drinks per week: 4 Substance use: never Substance use type: does not use Gender identity (if verbalized by the patient): Male Sexual Orientation (if Verbalized by the Patient): Straight or Heterosexual Spiritual care concerns: No Agree to blood products: Yes Exam Narrative: General appearance: Well-developed, well-nourished Skin: Normal color Head: Normocephalic, nontraumatic Eyes: Clear conjunctiva ENT: Oropharynx normal, ears normal, nose normal Neck: Supple, nontender Chest and respiratory: Airway patent, no respiratory distress, no accessory muscle use Heart: Regular rate/rhythm Abdomen: Soft, nontender, no organomegaly, quiet bowel sounds Vascular: Normal peripheral pulses, normal capillary refill. Musculoskeletal: Normal range of motion, nontender back Neurologic: Alert and oriented ?3, GREEN HIDE INSPECTOR is normal as tested, no gross motor deficit Course Course Emergency Course: Work-up showed 7 x 5 mm right UVJ stone. 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 Consultations Consultation #1: Dr. dweitt Admit to hospitalist, n.p.o. after midnight Date: 02/11/22 Time: 15:18 Vital Signs Vital signs: Vital Signs Temperature 36.8 C 02/11/22 13:18 Pulse Rate 99 02/11/22 13:18 Respiratory Rate 20 02/11/22 13:18 Blood Pressure 157/101 H 02/11/22 13:18 Pulse Oximetry 100 02/11/22 13:18 Oxygen Delivery Room Air 02/11/22 13:18 Temperature 36.8 C 02/11/22 13:18 Pulse Rate 99 02/11/22 13:18 Respiratory Rate 20 02/11/22 13:18 Blood Pressure 157/101 H 02/11/22 13:18 Pulse Oximetry 100 02/11/22 13:18 Oxygen Delivery Room Air 02/11/22 13:18 MDM - Back Pain/Injury Differential Diagnosis Differential diagnosis: Likely renal colic, pyelonephritis and other (Kidney stone) Lab Data Result diagrams: 02/11/22 13:09 02/11/22 13:09 Labs: Lab Results 02/11/22 02/11/22 02/11/22 Range/Units 13:09 13:09 13:09 WBC 11.8 H (4.5-10.0) K/mm3 RBC 4.64 (4.6-6.20) M/mm3 Hgb 14.2 (14.0-1
[2022-02-11 13:23] LABS: Basophils Percent Auto 0.3 % (0.2-1.2); Eosinophils Percent Auto 0.1 % (0-4.4); Hemoglobin 14.2 g/dL (14.0-18.0); Immature Granulocyte Absolute 0.05 K/mm3 (0.00-0.031); Immature Granulocyte Percent A 0.4 % (0-0.5); Lymphocytes Absolute Auto 1.16 K/mm3 (0.9-3.2); Lymphocytes Percent Auto 9.8 % (18.3-44.2); Mean Corpuscular HGB Conc 32.3 g/dl (32-36); Mean Corpuscular Hemoglobin 30.6 pg (26-34); Mean Corpuscular Volume 94.8 fl (80-100); Monocytes Percent Auto 8.8 % (2.6-8.5); Neutrophils Absolute Auto 9.5 K/mm3 (1.3-6.7); Neutrophils Percent Auto 80.6 % (45.5-73.1); Platelet Count Result 272 k/mm3 (150-375); Red Blood Count 4.64 M/mm3 (4.6-6.20); Red Cell Distribution Width 13.1 % (11.5-14.5); White Blood Count 11.8 K/mm3 (4.5-10.0)
[2022-02-11 13:27] LABS: Appearance Urine Clear (Clear); Bilirubin Urine Negative (Negative); Blood Urine 1+ (Negative); Color Urine Yellow (Yellow); Glucose Urine UA Negative (Negative); Ketones Urine Negative (Negative); Leukocyte Esterase Ur Negative LEU/UL (Negative); Nitrate Urine Negative (Negative); Protein Urine Negative (Negative); Specific Grav Ur 1.025 (1.001-1.035); Urobilinogen Urine 0.2 mg/dL (<2.0); pH Urine 5.5 (5.0-9.0)
[2022-02-11 13:33] LABS: Mucus Urine Rare /lpf; Squamous Epithelial Cell Urine Rare /hpf (Few)
[2022-02-11 13:34] LABS: Alanine Aminotransferase 31 U/L (6-50); Albumin Level 4.7 g/dL (3.5-5.1); Alkaline Phosphatase 60 U/L (38-126); Anion Gap 11 mmol/L (8-16); Aspartate Amino Transferase 29 U/L (17-59); Bilirubin,Total 0.6 mg/dL (0.2-1.3); Blood Urea Nitrogen 19 mg/dL (9-20); Calcium 9.3 mg/dL (8.4-10.2); Carbon Dioxide 25 mmol/L (22-30); Chloride 104 mmol/L (98-107); Estimated CRCL calculation 71 ml/min; Estimated Glomerular Filt Rate 52; Glucose 107 mg/dL (65-110); Lipase 118 U/L (23-300); Potassium 4.1 mmol/L (3.4-5.0); Sodium 140 mmol/L (137-145)
[2022-02-11 13:36] LABS: Add Urine Microscopic? YES
[2022-02-11] MEDS: ONDANSETRON INJ 4 MG/2 ML VIAL IV PUSH (13:53)
[2022-02-11] MEDS: MORPHINE SULFATE (*CRX) 4 MG/ML INJ IV PUSH (13:53)
[2022-02-11] MEDS: TAMSULOSIN HCL 0.4 MG CAPSULE PO (15:24)
--- NOTE | 2022-02-11 15:31 | PM.IMHP ---
H&P: HPI History of Present Illness Date/Time: 02/11/22 15:31 Chief Complaint: Right flank pain Narrative: This is a 61-year-old male patient who has a has history of kidney stones. The patient came to the emergency room complaining of right flank pain that radiated to his right groin area that started last night. He denies any fever chills. His white count 11.8. Creatinine 1.4. Patient is negative for influenza A/B and COVID. CT of the abdomen was read as 5 x 7 mm right ureterovesical junction with moderately prominent right hydroureteronephrosis and prominent right perinephric and periureteral stranding No other urinary tract calculus Probable left renal approximately 1.8 cm cysts Hepatic steatosis Diverticulosis of the colon; no evidence of diverticulitis Normal appendix Small fat-containing umbilical hernia and bilateral inguinal hernias Patient was given Zofran and morphine and Flomax Tylenol and Dilaudid. Urology has been consulted. The patient is being admitted to observation status on 02/11/2022. Review of Systems Review of Systems: See HPI All systems reviewed & are unremarkable except as noted in HPI and below Constitutional: Constitutional: Reports as per HPI and Reports no additional constitutional complaints Eyes: Eyes: Reports as per HPI and Reports no additional eye complaints ENT: Reports system reviewed and no additional complaints, except as documented and Reports Normal hearing present Cardiovascular: Cardiovascular: Reports no additional cardiovascular complaints Respiratory: Respiratory: Reports no additional respiratory complaints and Reports no additional respiratory complaints Gastrointestinal: Gastrointestinal: Reports as per HPI and Reports no additional gastrointestinal complaints Musculoskeletal: Musculoskeletal: Reports no additional musculoskeletal complaints Integumentary/Breasts: Skin/Breast: Reports system reviewed and no additional complaints, except as docu and Reports as per HPI Neurologic: Reports system reviewed and no additional complaints, except as documented, Reports as per HPI and Reports Normal hearing present Psychiatric: Psychiatric: Reports no additional psychiatric complaints and Reports as per HPI Endocrine: Endocrine: Reports no additional endocrine complaints Hematologic/Lymphatic: Hematologic/Lymphatic: Reports no additional hematologic/lymphatic complaints Allergic/Immunologic: Allergic/Immunologic: Reports no additional allergic/immunologic complaints [facility] Past Medical History Medical History (Updated 02/11/22 @ 17:35 by Jahaira Chavez NP) Arthritis Bladder outlet obstruction GERD (gastroesophageal reflux disease) Hypertension Kidney stone on right side Mixed anxiety and depressive disorder Pure hypercholesterolemia, unspecified Right ureteral calculus Surgical History Surgical History H/O cystoscopy H/O dilation of urethra H/O vasectomy History of tonsillectomy Family History Family History Father Diabetes mellitus Hypertension Mother Hypertension Dementia Social History Social History (Updated 02/11/22 @ 17:26 by Jahaira Chavez NP) Social History: He is and has 2 children. 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 Patient is a lifelong nonsmoker. He rarely drinks. His is the durable power deputy county attorney for healthcare. Code status full code Smoking status: Never smoker Second hand tobacco smoke exposure: No Alcohol intake: current Drinks per week: 4 Substance use: never Substance use type: does not use Gender identity (if verbalized by the patient): Male Sexual Orientation (if Verbalized by the Patient): Straight or Heterosexual Spiritual care concerns: No Agree to blood products: Yes Meds Home Medications and Allergies Home Medications Medication
[2022-02-11 16:18] LABS: Influenza A QL RT-PCR Negative (Negative); Influenza B QL RT-PCR Negative (Negative); SARS-CoV-2 RNA PCR Negative
--- NOTE | 2022-02-11 17:30 | ADMGEN ---
This patient, Santino Jordan, was admitted to Medical Room 340-01. Patient/family oriented to hospital policies and general routines including ID bracelet, bed and alarms, visiting hours, pain management, procedures, bathroom and other care routines, personal items, smoking policy, room service/diet, and visiting hours. Information on how to activate the Rapid Response Team has been discussed. Patient/Family are encouraged to report perceived risks to care and to ask questions if they do not understand what they are told or what they should do.
[2022-02-11] MEDS: SODIUM CHLORIDE 0.9% IV 1,000 ML 100 ML IV CONT (18:40)
[2022-02-12] MEDS: SODIUM CHLORIDE 0.9% IV 1,000 ML 100 ML IV CONT (04:58)
[2022-02-12 06:00] VITALS: BP 149/82; PULSE 73; RESP 20; TEMP 36.7; O2SAT 98
[2022-02-12 06:29] LABS: Basophils Percent Auto 0.3 % (0.2-1.2); Eosinophils Absolute Auto 0.1 K/mm3 (0-0.3); Eosinophils Percent Auto 1.3 % (0-4.4); Hematocrit 40.8 % (42.0-52.0); Hemoglobin 13.2 g/dL (14.0-18.0); Immature Granulocyte Absolute 0.03 K/mm3 (0.00-0.031); Immature Granulocyte Percent A 0.5 % (0-0.5); Lymphocytes Percent Auto 19.7 % (18.3-44.2); Mean Corpuscular HGB Conc 32.4 g/dl (32-36); Mean Corpuscular Hemoglobin 31.2 pg (26-34); Mean Corpuscular Volume 96.5 fl (80-100); Mean Platelet Volume 9.8 fl (7.4-10.4); Monocytes Absolute Auto 0.8 K/mm3 (0.1-0.6); Monocytes Percent Auto 12.5 % (2.6-8.5); Neutrophils Percent Auto 65.7 % (45.5-73.1); Platelet Count Result 211 k/mm3 (150-375); Red Blood Count 4.23 M/mm3 (4.6-6.20); White Blood Count 6.1 K/mm3 (4.5-10.0)
[2022-02-12 06:48] LABS: Lactic Acid Reflex 0.7 mmol/L (0.7-2.0)
[2022-02-12 07:04] LABS: Alanine Aminotransferase 27 U/L (6-50); Alkaline Phosphatase 54 U/L (38-126); Anion Gap 5 mmol/L (8-16); Aspartate Amino Transferase 24 U/L (17-59); Bilirubin,Total 0.9 mg/dL (0.2-1.3); Blood Urea Nitrogen 18 mg/dL (9-20); CRP 2.6 mg/dL (<1.0); Calcium 8.2 mg/dL (8.4-10.2); Carbon Dioxide 25 mmol/L (22-30); Chloride 105 mmol/L (98-107); Estimated CRCL calculation 82 ml/min; Estimated Glomerular Filt Rate > 60; Glucose 117 mg/dL (65-110); Phosphorus 3.6 mg/dL (2.5-4.5); Sodium 135 mmol/L (137-145)
[2022-02-12 08:45] VITALS: O2SAT 98
[2022-02-12] MEDS: PANTOPRAZOLE 40 MG TABLET PO (08:45)
[2022-02-12] MEDS: CANDESARTAN CILEXETIL 16 MG TABLET 32 MG PO (08:45)
[2022-02-12] MEDS: DESVENLAFAXINE SUCCINATE 50 MG TAB.ER.24H PO (08:46)
[2022-02-12] MEDS: EZETIMIBE 10 MG TABLET PO (08:46)
--- NOTE | 2022-02-12 11:05 | WPDURCON ---
Assessment and Plan Assessment and plan (1) Hydronephrosis: Code(s): N13.30 - Unspecified hydronephrosis Status: Acute Assessment and Plan: Due to ureteral stone (2) Right distal ureteral calculus: Code(s): N20.1 - Calculus of ureter Status: Acute Assessment and Plan: Plan for cystoscopy, right retrograde pyelogram, right ureteroscopy and stone extraction, possible stent placement. Understands risks of bleeding, infection, damage to the urinary tract, inability to move the stone. He agrees to proceed Urology Consult Note HPI Date Seen: 02/12/22 Requesting Physician: Xochitl Cary PA-C Primary Care Provider: Braulio Luu MD Consult Narrative Narrative: Santino Jordan is a 61 year old male with a previous history of stone disease. He has had a procedure done out of our office for. He recently saw my partner Dr. Ollie Guadalupe. He came to the emergency room yesterday afternoon evening for acute onset of right flank pain. This pain radiated to the right lower quadrant. There is associated nausea the vomiting. No symptoms urinary tract infection. No visible blood in the urine. He was admitted for pain control and antiemetics. He would like to have intervention on his stone as he set for a camping trip early next week. On CT scan he has a 7 mm distal right ureteral stone. It appears to be right at the ureteral orifice. Will plan for ureteroscopy and stone extraction today. If all goes well he can be discharged home. Previous urologic history does include stone disease as well as urethral dilation. There is a family history of kidney stones in his mother Review of Systems Review of Systems: All systems reviewed & are unremarkable except as noted in HPI and below PMFSH Past Medical History Medical History Arthritis Bladder outlet obstruction GERD (gastroesophageal reflux disease) Hypertension Kidney stone on right side Mixed anxiety and depressive disorder Pure hypercholesterolemia, unspecified Right ureteral calculus Surgical History Surgical History H/O cystoscopy H/O dilation of urethra H/O vasectomy History of tonsillectomy Family History Family History Father Diabetes mellitus Hypertension Mother Hypertension Dementia Social History Social History Social History: He is and has 2 children. 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 Patient is a lifelong nonsmoker. He rarely drinks. His is the durable power attorney at law for healthcare. Code status full code Smoking status: Never smoker Second hand tobacco smoke exposure: No Alcohol intake: current Drinks per week: 4 Substance use: never Substance use type: does not use Lack of Transportation: No Lack of Food: Never True Current Housing: I Have Housing Concerned About Future Housing: No Difficulty Paying Gas/Electric Bills: No Difficulty Paying for Meds: No Currently Unemployed: No Education: Master's Degree or Higher Difficulty w/ Childcare or Family Care: No Gender identity (if verbalized by the patient): Male Sexual Orientation (if Verbalized by the Patient): Straight or Heterosexual Spiritual care concerns: No Agree to blood products: Yes Meds Home Medications and Allergies Home Medications Medication Instructions Recorded Confirmed Type meloxicam 15 mg tablet 15 mg PO DAILY #90 tabs 10/17/21 02/11/22 Rx candesartan 32 mg tablet 32 mg PO DAILY #90 tabs 11/17/21 02/11/22 Rx ezetimibe 10 mg tablet 10 mg PO DAILY 11/22/21 02/11/22 History desvenlafaxine 50 mg 50 mg PO 1XD 02/11/22 02/11/22 History tablet,extended release 24 hr esomeprazole magnesium 40 mg 40 mg PO BID 02/11/22 02/11/22
--- NOTE | 2022-02-12 11:09 | WPDANESEPPF ---
Anes - Initial Pre Proc Eval Procedure: Operation Date: 02/12/22 11:00 Proposed Procedures p Cysto, RPG, Stone Ext, Stent Placement(Left) - Joel Horowitz MD Date/Time: 02/12/22 11:09 Surgeon: Xochitl Cary PA-C Pre Op Diagnosis: right uvj stone Patient Data Age: 61 Gender: M Height: 1.83 m Weight: 136.1 kg Last Vital Signs Temp 36.7 C 02/12/22 06:00 Pulse 73 02/12/22 06:00 Resp 20 02/12/22 06:00 BP 149/82 H 02/12/22 06:00 Pulse Ox 98 02/12/22 08:45 O2 Del Method Room Air 02/12/22 08:45 Allergies Allergy/AdvReac Type Severity Reaction Status Date / Time Quinolones Allergy Severe TOOK 1X Verified 02/11/22 18:12 PILL 06/25/07 atorvastatin AdvReac Unknown Unknown Uncoded 02/11/22 13:25 Home Medications Medication Instructions Recorded Confirmed Type meloxicam 15 mg tablet 15 mg PO DAILY #90 tabs 10/17/21 02/11/22 Rx candesartan 32 mg tablet 32 mg PO DAILY #90 tabs 11/17/21 02/11/22 Rx ezetimibe 10 mg tablet 10 mg PO DAILY 11/22/21 02/11/22 History desvenlafaxine 50 mg 50 mg PO 1XD 02/11/22 02/11/22 History tablet,extended release 24 hr esomeprazole magnesium 40 mg 40 mg PO BID 02/11/22 02/11/22 History capsule,delayed release Laboratory Tests 02/11/22 02/11/22 02/11/22 13:09 13:09 13:09 WBC 11.8 K/mm3 H K/mm3 (4.5-10.0) RBC 4.64 M/mm3 M/mm3 (4.6-6.20) Hgb 14.2 g/dL g/dL (14.0-18.0) Hct 44.0 % % (42.0-52.0) MCV 94.8 fl fl (80-100) MCH 30.6 pg pg (26-34) MCHC 32.3 g/dl g/dl (32-36) RDW 13.1 % % (11.5-14.5) Plt Count 272 k/mm3 k/mm3 (150-375) MPV 10.0 fl fl (7.4-10.4) Immature Gran % (Auto) 0.4 % % (0-0.5) Neut % (Auto) 80.6 % H % (45.5-73.1) Lymph % (Auto) 9.8 % L % (18.3-44.2) [place] % (Auto) 8.8 % H % (2.6-8.5) Eos % (Auto) 0.1 % % (0-4.4) Baso % (Auto) 0.3 % % (0.2-1.2) Lymph # (Auto) 1.16 K/mm3 K/mm3 (0.9-3.2) [place] # (Auto) 1.0 K/mm3 H K/mm3 (0.1-0.6) Eos # (Auto) 0.0 K/mm3 K/mm3 (0-0.3) Baso # (Auto) 0.0 K/mm3 K/mm3 (0.0-0.1) Abs Immat Gran (auto) 0.05 K/mm3 H K/mm3 (0.00-0.031) Absolute Neuts (auto) 9.5 K/mm3 H K/mm3 (1.3-6.7) Absolute Nucleated RBC 0.0 K/mm3 K/mm3 (0.0-0.012) Nucleated RBC % 0.0 % % (0.0-0.2) Sodium 140 mmol/L mmol/L (137-145) Potassium 4.1 mmol/L mmol/L (3.4-5.0) Chloride 104 mmol/L mmol/L (98-107) Carbon Dioxide 25 mmol/L mmol/L (22-30) Anion Gap 11 mmol/L mmol/L (8-16) BUN 19 mg/dL mg/dL (9-20) Creatinine 1.40 mg/dL H mg/dL (0.7-1.3) Estim Creat Clear Calc 71 ml/min ml/min Estimated GFR 52 L (59 - ) Glucose 107 mg/dL mg/dL (65-110) Lactic Acid Calcium 9.3 mg/dL mg/dL (8.4-10.2) Phosphorus Magnesium Total Bilirubin 0.6 mg/dL mg/dL (0.2-1.3) AST 29 U/L U/L (17-59) ALT 31 U/L U/L (6-50) Alkaline Phosphatase 60 U/L U/L (38-126) C-Reactive Protein Total Protein 8.0 g/dL g/dL (6.3-8.2) Albumin 4.7 g/dL g/dL (3.5-5.1) Lipase 118 U/L U/L (23-300) Urine Color Yellow (Yellow) Urine Appearance Clear (Clear) Urine pH 5.5 (5.0-9.0) Ur Specific [place] 1.025 (1.001-1.035) Urine Protein Negative mg/dL mg/dL (Negative) Urine Glucose (UA) Negative mg/dL mg/dL (Negative) Urine Ketones Negative mg/dL mg/dL (Negative) Ur Blood (Man) 1+ H (Negative) Urine Nitrate Negative (Negative) Urine Bilirubin Negative (Negative) Urine Urobilinogen 0.2 mg/dL mg/dL (<2.0) Leukocyte Est
[2022-02-12] MEDS: ceFAZolin 2 GM/D5W 50 ML 2 GM/50 ML BAG IVPB (11:10)
--- NOTE | 2022-02-12 11:12 | WPDHPUPDATE1 ---
History and Physical Update Update Date/Time: 02/12/22 11:12 History and Physical has been reviewed, including an updated exam of the patient. There are NO changes in the patient's condition. Risks, benefits, and alternatives have been discussed and questions answered. Patient agrees to proceed with procedure.
[2022-02-12] MEDS: LIDOCAINE HCL 2% GEL UROJET 10 ML PKG MUCOUS MEM (11:20)
--- NOTE | 2022-02-12 11:39 | W.PM.PROC2 ---
Procedure Note - Detailed Date of Procedure 02/12/22 Pre-op Diagnosis right uvj stone Post-op Diagnosis Same Procedure Performed Cystoscopy, right retrograde pyelogram, right ureteroscopy with stone extraction Surgeon Joel Horowitz MD Anesthesia General Indications This is a gentleman with a 7 mm right distal ureteral stone. He would like intervention. He understands risks of bleeding, infection, damage to the urinary tract, inability the stone. He agrees to proceed Findings Distal ureteral stone extracted intact Description of Procedure He has correctly identified. Informed consent obtained. From the operating room. He was given general anesthesia. He was given appropriate perioperative antibiotics. He was prepped and draped in the dorsal lithotomy position. A time-out was performed. I performed cystoscopy. He had evidence of her prior bulbar urethral stricture. Was able to get the cystoscope past the stricture into the bladder. Bladder otherwise normal other than a raised up right ureteral orifice secondary to stone. There is mild trabeculations. No other significant bladder abnormalities. There was no stones or tumors within the bladder. I did retrograde pyelogram on the right. There was hydronephrosis and a distal filling defect seen consistent with stone. I placed a guidewire to the kidney. I dilated the ureter the 810 dilator. I performed ureteroscopy up to the mid ureter. The stone was encountered in the distal ureter. There is no stones proximal to the stone. I was able to basket the stone and extracted intact. I re-examined the ureter via ureteroscopy. There was no additional ureteral stones. Hydronephrosis was present. There was minimal manipulation to the distal ureter. I reshot a retrograde pyelogram. Contrast was seen throughout the entire ureter and collecting system. There was no extravasation. It quickly drained. Because of this and the minimal manipulation of the ureter I opted to not leave ureteral stent. I drained his bladder. There is no extravasation extravasation. He was awakened and transferred to PACU in stable condition Implants None Estimated Blood Loss 1 Drains No Packing No Pathology Yes (Ureteral stone) Complications No immediate complications Condition Stable Disposition PACU
[2022-02-12 11:41] VITALS: BP 114/86; PULSE 77; RESP 17; TEMP 36.5; O2SAT 96
[2022-02-12] MEDS: LACTATED RINGERS 1,000 ML 30 ML IV CONT (11:41)
[2022-02-12 11:50] VITALS: BP 130/88; PULSE 83; RESP 14; O2SAT 96
[2022-02-12 12:05] VITALS: BP 132/83; PULSE 78; RESP 16; O2SAT 97
[2022-02-12] MEDS: PHENAZOPYRIDINE HCL 100 MG TABLET 200 MG PO (12:29)
--- NOTE | 2022-02-12 12:51 | PM.DS ---
DS: Admitting Diagnosis Discharge Date 02/12/2022 Admitting Diagnosis Ureterolithiasis DS: Discharge Diagnosis Discharge Diagnosis (1) Ureterolithiasis: Code(s): N20.1 - Calculus of ureter Status: Acute Assessment and Plan: Presented with right leg pain. CT of the abdomen/pelvis showed 5 x 7 mm right ureterovesical junction stone with moderately prominent right hydroureteronephrosis. UA with 1+ blood, no concerns for infection. He was seen in consultation by Urology and underwent cystoscopy with right retrograde pyelogram and right ureteroscopy with stone extraction on 02/12/2022. Tolerated the procedure well. He will continue with short course of analgesics on discharge and will follow-up with urology in the office. (2) Hypertension: Code(s): I10 - Essential (primary) hypertension Status: Acute Assessment and Plan: Blood pressure was well controlled. Continue home candesartan (3) GERD (gastroesophageal reflux disease): Code(s): K21.9 - Gastro-esophageal reflux disease without esophagitis Status: Chronic Assessment and Plan: No acute issues. Continue PPI (4) Mixed anxiety and depressive disorder: Code(s): F41.8 - Other specified anxiety disorders Status: Chronic Assessment and Plan: No acute issues. Continue with desvenlafaxine. DS: Summary Hospital Course Hospital Course: Date of admission: 02/11/2022 Date of discharge: 02/12/2022 Santino Jordan is a 61-year-old male with a history of kidney stones requiring ESWL, GERD, hypertension, hyperlipidemia, and ventral hernia who presented to the emergency department on 02/11/2022 with complaints of RLQ pain, nausea, and vomiting. On presentation to the ED, his BP was elevated with additional vital signs stable, WBC 11.8, creatinine 1.4, UA with 1+ blood, abdomen/pelvis CT showed 5x7 mm right UVJ stone with moderate right hydroureteronephrosis. He was admitted to the hospitalist service for further evaluation and management and was seen in consultation by Urology. Please see above for further details. Patient underwent cystoscopy with right retrograde pyelogram and right ureteroscopy with stone extraction on 02/12/[address] Horowitz. He was discharged following his procedure with a short course of analgesics and will follow-up with urology as an outpatient. He was discharged in hemodynamically stable condition on 02/12/2022. Time Spent with Patient Time attestation: Total time spent providing and/or coordinating discharge services: 40 minutes Time spent: Greater than 30 minutes Exam Narrative: General: well-nourished, well-appearing 61-year-old male, sitting up in bed, comfortable, NARD Neuro: awake, alert and oriented x4, speech clear, no focal neuro deficits noted HEENMT: normocephalic, atraumatic, EOMI, sclerae anicteric Respiratory: clear to auscultation bilaterally, nonlabored breathing Cardio: regular rate, regular rhythm with S1-S2 Abdomen: nondistended, normoactive bowel sounds, soft, nontender to palpation : no CVA tenderness Extremities: no edema, erythema, or tenderness to palpation, DP pulses 2+ bilaterally Skin: no rashes or lesions, warm and dry Psych: appropriate mood and affect, judgment and insight intact DS: Data Data Completed and Pending Labs on day of discharge: Labs from last 24 hours 02/12/22 02/12/22 02/12/22 06:03 06:03 06:03 WBC 6.1 RBC 4.23 L Hgb 13.2 L Hct 40.8 L MCV 96.5 MCH 31.2 MCHC 32.4 RDW 13.0 Plt Count 211 MPV 9.8 Immature Gran % (Auto) 0.5 Neut % (Auto) 65.7 Lymph % (Auto) 19.7 [place] % (Auto) 12.5 H Eos % (Auto) 1.3 Baso % (Auto) 0.3 Lymph # (Auto) 1.20 [place] # (Auto) 0.8 H Eos # (Auto) 0.1 Baso # (Auto) 0.0 Abs Immat Gran (auto) 0.03 Absolute Neuts (auto) 4.0 Absolute Nucleated RBC 0.0 Nucleated RBC % 0.0 Sodium 135 L Potassium 4.0 Chlorid
== END 2022-02-12 14:55 | disposition home or self-care (01) ==
LOC: ANHED 15:14 → ANH3MED 16:39
PROVIDERS: Emergency Medicine; Nurse Practitioner; Urology; Admitting Provider Student in an Organized Health Care Education/Training Program; Emergency Provider Emergency Medicine; PCP Family Medicine Adolescent Medicine; Referring Provider Urology; Visit Provider Physician Assistant
PROC: (CPT 52352; principal; 2022-02-12 11:00)
DX: N13.2 Hydronephrosis with renal and ureteral calculous obstruction (principal); K76.0 Fatty (change of) liver, not elsewhere classified; N28.1 Cyst of kidney, acquired; K21.9 Gastro-esophageal reflux disease without esophagitis; I10 Essential (primary) hypertension; F41.8 Other specified anxiety disorders; E78.00 Pure hypercholesterolemia, unspecified; E66.01 Morbid (severe) obesity due to excess calories; Z68.41 Body mass index [BMI] 40.0-44.9, adult
CPT/HCPCS: 52352; 36415; 74176; 74420; 80053; 81001; 82365; 83605; 83690; 83735; 84100; 85025; 86140; 87636; 88300; 96361; 96365; 96374; 96375; 96376; 99285; A9270; C1769; G0378; J0131; J0690; J1100; J2270; J2405; J2704; J3010; J7030; J7120

== ENCOUNTER 2022-04-11 10:05 | Outpatient (CLI) | payer OTHER, SELFPAY ==
--- NOTE | ~2022-04-11 | XR_ITS ---
Supine and upright views of the abdomen Clinical history: Right renal stone COMPARISON: 08/10/2021 Findings: Bowel gas pattern is nonspecific. No evidence for obstruction or free air. Calcified pelvic phleboliths noted. No abnormal mass lesion or calcification is seen. Osseous structures are intact. Impression: No definite renal stones seen. Reviewed, dictated and finalized at [facility]. [facility] Impression: No definite renal stones seen.
== END 2022-04-11 10:06 | disposition home or self-care (01) ==
PROVIDERS: PCP Family Medicine Adolescent Medicine; Visit Provider Urology
DX: N20.0 Calculus of kidney (principal)
CPT/HCPCS: 74018

== ENCOUNTER 2022-07-19 07:33 | Emergency (ER) | payer OTHER, SELFPAY ==
--- NOTE | ~2022-07-19 | XR_ITS ---
EXAMINATION: XR shoulder RT min 2V DATE: 07/19/2022 08:01 INDICATION: Right shoulder pain post fall TECHNIQUE: AP internally and externally rotated, AP oblique externally rotated and transscapular Y vi ews of the right shoulder were obtained. COMPARISON: None FINDINGS: Normal alignment. No fracture.Moderate osteoarthritis at the right acromioclavicular joint with like ly degenerative subchondral cystic change at the lateral head of the clavicle. Minimal glenohumeral o steoarthritis. Visualized portions of the lungs are clear. Soft tissues are unremarkable. IMPRESSION: Moderate acromioclavicular and minimal glenohumeral osteoarthritis of the right shoulder. No acute os seous abnormality. Reviewed, dictated and finalized at location B. IMPRESSION: Moderate acromioclavicular and minimal glenohumeral osteoarthritis of the right shoulder. No acute osseous abnormality.
[2022-07-19 07:34] VITALS: BP 153/113; PULSE 84; RESP 16; TEMP 36.3; O2SAT 97
[2022-07-19 07:44] VITALS: BP 175/111; PULSE 78; RESP 15; O2SAT 98
--- NOTE | 2022-07-19 08:33 | ED.UPPEXIN ---
HPI - Extremity Injury (Upper) General Chief Complaint: Extremity Injury, Upper Stated Complaint: right shoulder injury Time Seen by Provider: 07/19/22 07:43 History of Present Illness HPI narrative: Patient presents after mechanical fall yesterday, landing on right shoulder, reporting pain and initially had some numbness and tingling that radiated down the volar arm that has now resolved. Initially took a Tylenol/ibuprofen which helped. Related Data Allergies Allergy/AdvReac Type Severity Reaction Status Date / Time Quinolones Allergy Severe TOOK 1X Verified 07/19/22 07:44 PILL 06/25/07 atorvastatin AdvReac Unknown Unknown Uncoded 07/19/22 07:44 Review of Systems Review of Systems: CONST: No fever. HEENT: No head injury C/V: No chest pain RESP: No difficulty breathing GI: No abdominal injury M/S: Right shoulder pain SKIN: No abrasions NEURO: Initial tingling down volar right arm PSYCH: [No depression] PMFSH Past Medical History Medical History Arthritis Arthritis of knee, right Bladder outlet obstruction Essential (primary) hypertension Gastro-esophageal reflux disease without esophagitis GERD (gastroesophageal reflux disease) Hepatic steatosis (11/2018) Hypertension Kidney stone on right side Mixed anxiety and depressive disorder Morbid (severe) obesity due to excess calories Pure hypercholesterolemia, unspecified Right ureteral calculus Ventral hernia Surgical History Surgical History H/O cystoscopy H/O dilation of urethra H/O vasectomy History of tonsillectomy Family History Family History Father Diabetes mellitus Hypertension Mother Hypertension Dementia Lymphedema Social History Social History Social History: He is and has 2 children. 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 Patient is a lifelong nonsmoker. He rarely drinks. His is the durable power ip attorney for healthcare. Code status full code Smoking status: Never smoker Second hand tobacco smoke exposure: No Alcohol intake: current Drinks per week: 4 Substance use: never Substance use type: does not use Lack of Transportation: No Lack of Food: Never True Current Housing: I Have Housing Concerned About Future Housing: No Difficulty Paying Gas/Electric Bills: No Difficulty Paying for Meds: No Currently Unemployed: No Education: Master's Degree or Higher Difficulty w/ Childcare or Family Care: No Living arrangements: with family Occupation/Education: retired Gender identity (if verbalized by the patient): Male Sexual Orientation (if Verbalized by the Patient): Straight or Heterosexual Spiritual care concerns: No Agree to blood products: Yes Exam Narrative: EXAMINATION OF ORGAN SYSTEMS/BODY AREAS: Constitutional: Vital signs per nursing GENERAL:[No acute distress, non-toxic appearing.] HEAD: Normal with no signs of head trauma. EYES: EOMI, conjunctiva normal ENT: Hearing grossly intact LUNGS: Nonlabored breathing. HEART: [Regular rate and rhythm] ABD: [Soft], [nontender to palpation] EXT: Pain with movements of shoulder especially past 45 degrees abduction, no obvious deformity, radial pulses intact, sensation intact SKIN: [No rashes or lesions.] NEURO: [Alert and oriented x 3. No gross focal sensory or strength deficits.] PSYCH: Normal affect Course Vital Signs Vital signs: Vital Signs Temperature 97.4 F L 07/19/22 07:34 Pulse Rate 84 07/19/22 07:34 Respiratory Rate 16 07/19/22 07:34 Blood Pressure 153/113 H 07/19/22 07:34 Pulse Oximetry 97 07/19/22 07:34 Oxygen Delivery Room Air 07/19/22 07:34 Temperature 97.4 F L 07/19/22 07:34 Pulse Rate 78 07/19/22 07:44 Respiratory Rate 15 07/19/22 07
== END 2022-07-19 08:45 | disposition home or self-care (01) ==
PROVIDERS: Emergency Provider Emergency Medicine; PCP Family Medicine Adolescent Medicine
DX: S49.91XA Unspecified injury of right shoulder and upper arm, initial encounter (principal); I10 Essential (primary) hypertension; E78.00 Pure hypercholesterolemia, unspecified; E66.01 Morbid (severe) obesity due to excess calories; Z68.39 Body mass index [BMI] 39.0-39.9, adult; K21.9 Gastro-esophageal reflux disease without esophagitis; Z87.442 Personal history of urinary calculi; M17.11 Unilateral primary osteoarthritis, right knee; W18.09XA Striking against other object with subsequent fall, initial encounter
CPT/HCPCS: 73030; 99283

== ENCOUNTER → 2022-08-08 07:45 | Outpatient (CLI) | payer OTHER, SELFPAY ==
--- NOTE | ~2022-08-08 | MR_ITS ---
EXAMINATION: MR shoulder RT wo con DATE: 08/08/2022 08:40 INDICATION: Right shoulder pain. TECHNIQUE: Magnetic resonance imaging (MRI) of the right shoulder was performed without intravenous c ontrast. COMPARISON: Right shoulder radiographs 07/19/2022, chest CT 06/14/2009 FINDINGS: Coracoacromial arch: The acromion undersurface is curved in morphology with anterior hook (type III). The acromion is low- lying. There is severe acromioclavicular joint osteoarthritis. There is moderate subacromial/subdelto id bursitis. Rotator cuff: There is a full-thickness tear of supraspinatus and infraspinatus tendons measuring 4.5 cm anterior t o posterior by 3.3 cm proximal to distal. Teres minor tendon is normal. There is severe subscapularis tendinopathy. There is mild volume loss of supraspinatus and infraspinatus muscle bellies. No asymme tric fatty atrophy. 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 Biceps tendon and glenoid labrum: Biceps tendon is in bicipital groove. There is a partial tear of proximal biceps tendon. There is a t ear of the superior glenoid labrum from 10:00 to 2:00 (SLAP tear). Fluid: There is a small glenohumeral joint effusion. Bones/cartilage: Humeral head cartilage is normal. Glenoid cartilage is normal. IMPRESSION: 1. Massive full-thickness rotator cuff tear. 2. SLAP tear. 3. Severe acromioclavicular joint osteoarthritis. 4. Partial tear of proximal biceps tendon. 5. Small glenohumeral joint effusion and moderate subacromial/subdeltoid bursitis. Reviewed, dictated and finalized at location A. IMPRESSION: 1. Massive full-thickness rotator cuff tear. 2. SLAP tear. 3. Severe acromioclavicular joint osteoarthritis. 4. Partial tear of proximal biceps tendon. 5. Small glenohumeral joint effusion and moderate subacromial/subdeltoid bursit is.
== END ==
PROVIDERS: PCP Family Medicine Adolescent Medicine; Visit Provider Family Medicine Adolescent Medicine
DX: M75.101 Unspecified rotator cuff tear or rupture of right shoulder, not specified as traumatic (principal); S43.431A Superior glenoid labrum lesion of right shoulder, initial encounter; X58.XXXA Exposure to other specified factors, initial encounter; M25.411 Effusion, right shoulder; M19.011 Primary osteoarthritis, right shoulder
CPT/HCPCS: 73221

== ENCOUNTER 2022-09-05 09:35 | Emergency (ER) | payer OTHER, SELFPAY ==
[2022-09-05] VITALS (8 sets, daily range): BP systolic 135–159; BP diastolic 87–108; PULSE 67–81; RESP 11–19; TEMP 36.9; O2SAT 94–99
--- NOTE | ~2022-09-05 | CT_ITS ---
EXAMINATION: CT brain wo con DATE: 09/05/2022 12:27 INDICATION: Dizziness TECHNIQUE: Computed tomography (CT) of the head was performed without intravenous contrast. Sagittal and coronal reconstructions were performed. The mA was adjusted according to patient size. Iterative reconstruction technique was employed. The dose-length product was 605.33 mGy-cm. COMPARISON: None FINDINGS: No acute intracranial hemorrhage, acute infarction or abnormal extra axial fluid collection. There is mild scattered white matter hypoattenuation consistent with chronic small vessel ischemic disease. S ymmetric prominence of the sulci consistent with mild age-appropriate diffuse cerebral volume loss. V entricles are normal and symmetric. No mass/mass effect. Mild mucosal thickening the bilateral actuarial internship ior ethmoid air cells. The orbits and mastoid air cells are normal. IMPRESSION: 1. Normal aging brain. No acute intracranial process. Reviewed, dictated and finalized at location A.
--- NOTE | 2022-09-05 09:41 | ECG_ITS ---
Measurements Intervals [place] Rate: 72 P: 55 RI: 168 QRS: 12 QRSD: 101 T: 23 QT: 360 QTc: 397 Interpretive Statements SINUS RHYTHM NO PREVIOUS ECG AVAILABLE FOR COMPARISON Electronically Signed On 09-05-2022 16:16:58 CDT by Farooq Ndiaye M.D.
[2022-09-05 09:57] LABS: Basophils Percent Auto 0.5 % (0.2-1.2); Eosinophils Absolute Auto 0.1 K/mm3 (0-0.3); Eosinophils Percent Auto 1.4 % (0-4.4); Hematocrit 42.7 % (42.0-52.0); Hemoglobin 13.8 g/dL (14.0-18.0); Immature Granulocyte Absolute 0.04 K/mm3 (0.00-0.031); Immature Granulocyte Percent A 0.5 % (0-0.5); Lymphocytes Absolute Auto 1.46 K/mm3 (0.9-3.2); Mean Corpuscular HGB Conc 32.3 g/dl (32-36); Mean Corpuscular Hemoglobin 30.9 pg (26-34); Mean Corpuscular Volume 95.7 fl (80-100); Mean Platelet Volume 9.4 fl (7.4-10.4); Monocytes Absolute Auto 0.8 K/mm3 (0.1-0.6); Monocytes Percent Auto 10.7 % (2.6-8.5); Neutrophils Absolute Auto 5.2 K/mm3 (1.3-6.7); Neutrophils Percent Auto 67.9 % (45.5-73.1); Platelet Count Result 240 k/mm3 (150-375); Red Blood Count 4.46 M/mm3 (4.6-6.20); Red Cell Distribution Width 13.2 % (11.5-14.5); White Blood Count 7.7 K/mm3 (4.5-10.0)
[2022-09-05 10:09] LABS: Alanine Aminotransferase 26 U/L (6-50); Albumin Level 4.5 g/dL (3.5-5.1); Alkaline Phosphatase 62 U/L (38-126); Anion Gap 4 mmol/L (8-16); Aspartate Amino Transferase 30 U/L (17-59); Bilirubin,Total 1.1 mg/dL (0.2-1.3); Blood Urea Nitrogen 13 mg/dL (9-20); Calcium 9.2 mg/dL (8.4-10.2); Carbon Dioxide 34 mmol/L (22-30); Chloride 101 mmol/L (98-107); Estimated CRCL calculation 108 ml/min; Estimated Glomerular Filt Rate > 60; Glucose 81 mg/dL (65-110); Potassium 4.2 mmol/L (3.4-5.0); Sodium 139 mmol/L (137-145)
--- NOTE | 2022-09-05 12:23 | ED.DIZZY ---
HPI - Dizziness General Chief Complaint: Dizziness Stated Complaint: dizzy, HTN Time Seen by Provider: 09/05/22 11:35 History of Present Illness HPI Narrative: Pt presents with intermittent dizziness for the last couple of weeks but much worse and with nausea this morning. Pt took BP during event and was elevated. Pt denies BALLARD or one sided weakness or speech difficulties. Pt says she feels better now and is not dizzy. Related Data Allergies Allergy/AdvReac Type Severity Reaction Status Date / Time Quinolones Allergy Severe Rash Verified 09/05/22 13:26 atorvastatin Allergy Unknown Unknown Verified 09/05/22 13:27 Review of Systems Review of Systems: All systems reviewed & are unremarkable except as noted in HPI and below PMFSH Past Medical History Medical History Arthritis Arthritis of knee, right Bladder outlet obstruction Essential (primary) hypertension Gastro-esophageal reflux disease without esophagitis GERD (gastroesophageal reflux disease) Hepatic steatosis (11/2018) Hypertension Kidney stone on right side Mixed anxiety and depressive disorder Morbid (severe) obesity due to excess calories Pure hypercholesterolemia, unspecified Right ureteral calculus Ventral hernia Surgical History Surgical History H/O cystoscopy H/O dilation of urethra H/O vasectomy History of tonsillectomy Family History Family History Father Diabetes mellitus Hypertension Mother Hypertension Dementia Lymphedema Social History Social History Social History: He is and has 2 children. 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 Patient is a lifelong nonsmoker. He rarely drinks. His is the durable power assistant product manager for healthcare. Code status full code Smoking status: Never smoker Second hand tobacco smoke exposure: No Alcohol intake: current Drinks per week: 4 Substance use: never Substance use type: does not use Lack of Transportation: No Lack of Food: Never True Current Housing: I Have Housing Concerned About Future Housing: No Difficulty Paying Gas/Electric Bills: No Difficulty Paying for Meds: No Currently Unemployed: No Education: Master's Degree or Higher Difficulty w/ Childcare or Family Care: No Living arrangements: with family Occupation/Education: retired Gender identity (if verbalized by the patient): Male Sexual Orientation (if Verbalized by the Patient): Straight or Heterosexual Spiritual care concerns: No Agree to blood products: Yes Exam Const: General: healthy appearing Nutritional Appearance: well nourished Orientation/consciousness: patient oriented x3 Limitations: no limitations Eyes: Pupils: Equal, round and reactive pupils present EOM: EOMs intact bilaterally Neck: Neck: normal visual inspection and no lymphadenopathy Chest: Chest palpation & inspection: normal inspection of the chest Resp: Effort & Inspection: normal respiratory effort Auscultation: clear to auscultation bilaterally Cardio: Rate: regular rate Rhythm: regular rhythm GI: GI Palp: Yes Soft to palpation Auscultation: normal bowel sounds Skin: General skin exam: normal color Rashes: no rashes Wounds: no wounds Neuro: General: patient oriented x3, moves all extremities, no meningeal signs, no focal motor deficits and CN's II-XI intact bilaterally Cranial nerves: Yes Nystagmus not present Speech: normal speech Extrem: General: normal to inspection and no clubbing, cyanosis or edema Psych: Mental Status: mental status grossly normal Affect: normal affect Course Vital Signs Vital signs: Vital Signs Temperature 98.4 F 09/05/22 09:37 Pulse Rate 77 09/05/22 09:37 Respiratory Rate 18 09/05/22 09:37 Blood Pressure 151/108 H
== END 2022-09-05 13:55 | disposition home or self-care (01) ==
PROVIDERS: Emergency Provider Emergency Medicine; PCP Family Medicine Adolescent Medicine
DX: R42 Dizziness and giddiness (principal); I10 Essential (primary) hypertension; E78.00 Pure hypercholesterolemia, unspecified; N32.0 Bladder-neck obstruction; M17.11 Unilateral primary osteoarthritis, right knee; K21.9 Gastro-esophageal reflux disease without esophagitis; E66.01 Morbid (severe) obesity due to excess calories; Z68.41 Body mass index [BMI] 40.0-44.9, adult; Z87.442 Personal history of urinary calculi
CPT/HCPCS: 36415; 70450; 80053; 85025; 93005; 99284

== ENCOUNTER → 2023-01-26 07:45 | Outpatient (CLI) | payer OTHER, SELFPAY ==
--- NOTE | ~2023-01-26 | MR_ITS ---
EXAMINATION: MR ankle LT wo/w con DATE: 01/26/2023 08:51 INDICATION: Posterior tibial tendinitis. TECHNIQUE: Magnetic resonance imaging (MRI) of the left ankle was performed without intravenous contr ast. Sequences included axial, sagittal and coronal PD-weighted FSE, sagittal and coronal PD-weighted FS FSE, axial T2-weighted FS FSE, axial T1-weighted FS FSE and postcontrast axial, sagittal and rios nal T1-weighted FS FSE . COMPARISON: None. FINDINGS: Medial ankle ligaments: Thickening of the superficial deltoid ligament consistent with scarring related to chronic sprain. Th e deep deltoid ligament appears to remain normal. Complete tear of the calcaneal attachment of the cobos peromedial component of the spring ligament complex. The thickened ligament is retracted distal to th e anterior margin of the tibialis posterior tendon which now directly abuts the inferomedial neck of the talus. The medial plantar oblique and infra plantar lateral components of the spring ligament com plex remain normal. Lateral ankle ligaments: The anterior and posterior inferior tibiofibular ligaments are normal. The anterior talofibular, calc aneofibular and posterior talofibular ligaments are normal. Tendons: Achilles tendon is normal. Moderate amount of fluid consistent with tenosynovitis extending along the peroneal tendon sheath. The peroneus longus tendon is normal. There is mild tendinopathy and longitu dinal split tear of the peroneus brevis tendon at the level of the lateral malleolus. There is an acc essory peroneus cordis tendon which inserts upon the retroverted trochlear eminence. There is thicken ing of the superior peroneal retinaculum along with small osteophytes at its fibular insertion. The t ibialis anterior and extensor hallucis longus and extensor digitorum longus tendons are normal. The t ibialis posterior, flexor digitorum longus and flexor hallucis longus tendons are normal. There is mo derate amount of fluid along the tibialis posterior and flexor digitorum longus tendon sheaths above level of the ankle consistent with mild tenosynovitis. There is an additional anatomic variant medial sided accessory flexor muscle and tendon which most closely approximates a flexor digitorum access a ureus longus and insertion along the quadratus plantae and inferomedial base of the sustentaculum jayleen i with muscle belly positioned along the lateral margin of the flexor hallux longus muscle belly. Plantar fascia: Small plantar calcaneal spur and mild thickening of the proximal most central component of the planta r aponeurosis consistent with mild chronic enthesopathy. No surrounding marrow or soft tissue edema t o suggest acute plantar fasciitis. Bones/other: The foot is positioned with pes planus and hindfoot valgus. Mild osteoarthritis at the ankle joint wi th cystic change along the medial margin of the lateral malleolus. There is also cystic change along the superolateral margin of the anterior process of the calcaneus where it abuts the lateral process of the talus. Constellation of findings is consistent with a lateral hindfoot impingement. There is m ild osteoarthritis at the subtalar joint with subarticular cystlike and edema-like signal changes ant eriorly along the articular surface at the sustentaculum roland. There is additional osteoarthritis at multiple joints in the mid foot, moderate at the second-fourth tarsometatarsal joints and otherwise m ild. No fracture or pathologic marrow replacing process. 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 Fluid: There is a large multilobulated ganglion cyst arising from the subtalar joint and extending cephalad from the region of the sinus Tarsi to the dorsum of the hindfoot. The cyst in its entirety measures a pproximately 4.7 cm medial collateral, 3.9 cm craniocaudally and 2.7 cm anteroposteriorly. Small ankl e joint effusion with synovitis in the posterio
== END ==
PROVIDERS: PCP Family Medicine Adolescent Medicine; Visit Provider Podiatrist Foot & Ankle Surgery
DX: M67.472 Ganglion, left ankle and foot (principal); M76.822 Posterior tibial tendinitis, left leg; S93.492A Sprain of other ligament of left ankle, initial encounter; M65.872 Other synovitis and tenosynovitis, left ankle and foot; M19.072 Primary osteoarthritis, left ankle and foot
CPT/HCPCS: 73723; A9577

== ENCOUNTER 2023-04-20 12:08 | Outpatient (CLI) | payer OTHER, SELFPAY ==
--- NOTE | ~2023-04-20 | XR_ITS ---
Supine and upright views of the abdomen Clinical history: Kidney stones COMPARISON: 04/11/2022 Findings: Bowel gas pattern is nonspecific. No evidence for obstruction or free air. Stable calcifica tions right pelvis. Osseous structures are intact. Impression: Stable presumed right pelvic calcified phleboliths. Reviewed, dictated and finalized at [facility]. [facility] [employer] Impression: Stable presumed right pelvic calcified phleboliths.
== END 2023-04-20 12:09 | disposition home or self-care (01) ==
LOC: ANHIMG 12:10
PROVIDERS: PCP Family Medicine Adolescent Medicine; Visit Provider Urology
DX: N20.0 Calculus of kidney (principal)
CPT/HCPCS: 74018

== ENCOUNTER 2024-01-28 14:37 | Outpatient (CLI) | payer OTHER, SELFPAY ==
--- NOTE | ~2024-01-28 | CT_ITS ---
EXAMINATION: CT abdomen wo con DATE: 01/28/2024 14:58 INDICATION: Right upper quadrant mass TECHNIQUE: Computed tomography (CT) of the abdomen and pelvis was performed without intravenous contr ast. Automated exposure control and iterative reconstruction technique were employed. The dose-length product was 1076.82 mGy-cm. COMPARISON: 02/11/2022 FINDINGS: Lung bases are clear. Heart size is normal. No pericardial or pleural effusion. Diffuse hepatic steat osis. Gallbladder, spleen, pancreas, bilateral adrenal glands and right kidney are normal. 2.5 cm lef t renal cyst. Visualized portion of the bowels including the appendix are normal. Small fat-containin g umbilical hernia. There is a larger fat-containing right upper quadrant ventral hernia measuring 10 .0 x 5.3 x 7.8 cm which extends to a 2.5 x 2.1 cm os position slightly to the right of midline. No pa thologically enlarged abdominal lymphadenopathy. Thoracolumbar spondylosis, moderate at L1-L2 and oth erwise mild. IMPRESSION: 1. 10 x 5 x 8 cm fat-containing right upper quadrant ventral hernia likely accounting for the reporte d right upper quadrant mass of concern. There is also a small fat-containing umbilical hernia. Reviewed, dictated and finalized at location B. ATTENDANT IMPRESSION: 1. 10 x 5 x 8 cm fat-containing right upper quadrant ventral hernia likely acco unting for the reported right upper quadrant mass of concern. There is also a s mall fat-containing umbilical hernia.
== END 2024-01-28 14:38 | disposition home or self-care (01) ==
PROVIDERS: PCP Family Medicine Adolescent Medicine; Visit Provider Family Medicine Adolescent Medicine
DX: K43.9 Ventral hernia without obstruction or gangrene (principal); K42.9 Umbilical hernia without obstruction or gangrene
CPT/HCPCS: 74150

== ENCOUNTER 2024-06-16 00:58 | Day surgery (SDC) | payer OTHER, SELFPAY ==
[2024-06-05 11:42] VITALS: BMI 42.1
--- OUTSIDE RECORDS SUMMARY | 2024-06-16 01:01 | XMS_ITS | Continuity of Care Document ---
Author Organization [facility] Address [address] [place] [address] Phone Care Team Providers Care Tire Service Supervisor Name Role Phone Eduin King Unavailable Unavailable Procedures Procedure Date Eye Exam Established Pt Ophthalmoscopy, Subsequent Eye Exam Established Pt Ophthalmoscopy, Subsequent Office Consultation Ophthalmoscopy Office/outpatient Visit, Est Eye Exam, New Patient Advance Directives Directive Yes / No Effective Date File Name No Information Encounters Encounter Description Practice Location Reason(s) For Visit Diagnoses Date Provider Providers Copied on Encounter [facility], [address], [place], [place], [id number], [place] tel:[phone] [facility] No Information [address]. [address] [place], [address], [place]. tel:[phone] Referring Provider: Eduin Walton, [address] [place], [address]. tel:[phone] [facility], [address], [place], [place], [id number], [place] tel:[phone] [facility] No Information [address] [place], [address], [place]. tel:[phone] Referring Provider: Eduin Walton, [address] [place], [place], [facility]. tel:[phone] Office Consultation [facility], [address], [place], [place], [id number], [place] tel:[phone] [facility] No Information Shelton-0 8-200 9 Fernando [address]enny. [address] [facility] [place], [place], [facility], [place]. tel:[phone] Referring Provider: Ar zuniga, [address] [place] [address] [address], [place], [place], [facility]. tel:[phone] Office/outpati ent Visit, Est [facility], [address], [place], [place], [id number], tel:[phone] [facility] No Information Shelton-0 5-200 9 Lionel Joyner. [address] [place] [address], [place], [facility], [place]. tel:[phone] [facility], [address], [place], [place], [id number], [place] tel:[phone] [facility] No Information Shelton-0 4-200 9 Suyapa Foss. [address] [place] [address] [address], [address], [place], [place], [facility], [place]. tel:[phone] Family History Family Member Type Diagnosis Age At Onset No Information Payers Payer name Insurance type Covered libertarian ID Authoriza tion(s) No Information Social History Type Description Quantity Date Captured Comments Sex Male Smoking Status No Information Chief Complaint And Reason For Visit No Information Reason For Referral Reason For Referral No Information History Of Present Illness Encounter Date Complaint History Of Prese nt Illness No Information Functional Status Date Functional Assessmen t No Information Instructions Date Instruction Additional Infor mation No Information Assessments Type Assessment Date No Information Patient Care Teams Name Effective Dates (start - stop) Status Members No Information
--- OUTSIDE RECORDS SUMMARY | 2024-06-16 01:01 | XMS_ITS | Referral Summary ---
Author Organization [facility] [address] Address [address] [place] [address] Care Team Providers Care Director Of Placement Name Role Phone Braulio Luu MD Primary Care Prov ider Dagmar Lopes DPM Unavailable [phone] Encounters Date Type Department Care Team Description 04/28/2024 9:11 AM SEWAGE DISPOSAL ENGINEER - 04/28/2024 11:59 PM SEWAGE DISPOSAL ENGINEER Hospital Encounter [facility] [address] [place] [address] Left ankle pain, unspecified chronicity Discharge Disposition: Discharge to home or self care 04/28/2024 9:10 AM SEWAGE DISPOSAL ENGINEER - 04/28/2024 11:59 PM SEWAGE DISPOSAL ENGINEER Hospital Encounter [facility] [address] [place] [address] Pain in left foot Discharge Disposition: Discharge to home or self care 04/28/2024 9:00 AM SEWAGE DISPOSAL ENGINEER Office Visit [facility] Orth[facility] Surgery [address] [place] [address] [address] [place] [address] Torey Montes MD Pain in left foot (Primary Dx); Left ankle pain, unspecified chronicity 03/18/2024 12:15 PM SEWAGE DISPOSAL ENGINEER - 03/18/2024 11:59 PM SEWAGE DISPOSAL ENGINEER Hospital Encounter [facility] [address] [place] [address] Pain in left foot; Left ankle pain, unspecified chronicity Discharge Disposition: Discharge to home or self care from Last 3 Months Allergies Active Allergy Reactions Criticality Noted Date Comments Levofloxacin Urticaria Medium 03/02/2014 Medications ezetimibe (ZETIA) 10 mg tabletIndication s:hyperlipidemia Take 1 tablet (10 mg total) by mouth every morning [address] (NexIUM) 40 mg capsuleIndicatio ns:Stress Ulcer Prophylaxis Take 1 capsule (40 mg total) by mouth daily before breakfast 0 Active desvenlafaxine succinate (PRISTIQ) 50 mg 24 hr tabletIndication s:major depressive disorder Take 1 tablet (50 mg total) by mouth every morning 7 Active candesartan (ATACAND) 32 mg tabletIndication s:hypertension Take 1 tablet (32 mg total) by mouth every morning 2 Active tamsulosin (FLOMAX) 0.4 mg extended release capsuleIndicatio ns:benign prostatic hyperplasia with lower urinary tract sx Take 1 capsule (0.4 mg total) by mouth every morning 4 Active acetaminophen 500 mg capsuleIndicatio ns:Pain Take 2 capsules (1,000 mg total) by mouth every 8 (eight) hours 90 tablet 4 Active aspirin 325 mg enteric coated tabletIndication s:Deep Vein Thrombosis Prevention Take 1 tablet (325 mg total) by mouth daily 30 tablet 4 Active docusate sodium (COLACE) 100 mg capsuleIndicatio ns:constipation Take 1 capsule (100 mg total) by mouth 2 (two) times a day 60 capsule 4 Active promethazine (PHENERGAN) 12.5 mg tabletIndication s:Prevention of Post-Operative Nausea and Vomiting Take 1 tablet (12.5 mg total) by mouth every 6 (six) hours as needed for nausea or vomiting 30 tablet 4 Active oxyCODONE (ROXICODONE) 5 mg immediate release tabletIndication s:Pain Take 1 tablet (5 mg total) by mouth every 4 (four) hours as needed for pain 42 tablet 4 Active sulfamethoxazole -trimethoprim (BACTRIM DS) 800-160 mg per tablet Take 1 tablet by mouth every 12 (twelve) hours for 7 days 4 Active meloxicam (MOBIC) 15 mg tablet Take 1 tablet (15 mg total) by mouth daily 4 Active Active Problems Problem Noted Date Diagnosed Date Ankle arthritis 11/06/2023 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 05/04 Acquired deformity of left ankle and foot 2023 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 Overview (01/13/2022): Last Assessment & Plan: - Benign, reassurance Multiple benign melanocytic nevi of upper and lower extremities and trunk 03/22/2020 Overview (01/13/2022): Last Assessment & Plan: - Benign, reassurance - Counseled on importance of daily sun protection (Broad spectrum, SPF >30), monthly self skin exams - Reviewed ABCDEs of melanoma - Sun screen hand out provided Seborrheic keratosis 03/22/2020 Overview (01/13/2022): Last Assessment & Plan: - Benign, reassurance Lichen planus 11/26/2017 Social History Tobacco Use Types Packs/Day Years Used Date Smoking Tobacco: Never Smokeless Tobacco: Never Tobacco Cessation:Counseling Given: Not Answered AUDIT-C Answer Date Recorded Q1: How often do you have a drink containing alc ohol? 2-4 times a month 11/06/2023 Q2: How many drinks containi ng alcohol do you have on a typical day when you are drinking? 3 or 4 11/06/2023 Q3: How often do you have si x or more drinks on one occasion? Never 11/06/2023 Personal Safety Answer Date Recorded Have you ever been in or are you currently in a harmful physical or emotional relationship or is someone making you feel afraid or unsafe? Denies 11/06/2023 Sex and Gender Information Value Date Recorded Sex Assigned at Not on file Legal Sex Male 1:59 AM SEWAGE DISPOSAL ENGINEER Gender Identity Not on file Sexual Orientation Not on file Last Filed Vital Signs Vital Sign Reading Time Taken Comments Blood Pressure 113/64 11/07/2023 1:20 PM CDT Pulse 83 11/07/2023 1:20 PM CDT Temperature 37.2 C (99 F) 11/07/2023 1:20 PM CDT Respiratory Rate 18 11/07/2023 1:20 PM CDT Oxygen Saturation 99% 11/07/2023 1:20 PM CDT Inhaled Oxygen Concentration - - Weight 136.1 kg (300 lb) 11/06/2023 8:25 PM CDT Height 182.9 cm (6') 11/06/2023 8:25 PM CDT Body Mass Index 40.69 11/06/2023 8:25 PM CDT Plan of Treatment Not on file Medical Devices Implanted Type Area Assistant Activities Director Device Identifier Shelf Expiration Date Model / Serial / Lot Musculoskeletal Transplant [id number] 4-30mm Allograft Frozen [id number] Wedge Graft Bone [id number] - [id number] - [id number] Implanted:Qty: 1 on 11/06/2023 by Torey Montes MD at [facility] Bone Left: Ankle Musculoskeletal Transplant [id number] 11/04/2027 [id number] / [id number] / Orthohelix Maxlock Extreme Foot Ankle Y Plate Bone Nonsterile Latex Free Wire Stripping Machine Operator-002-Y - [id number] Implanted:Qty: 1 on 11/06/2023 by Torey Montes MD at [facility] Plate Left: Ankle Orthohelix TOOL POLISHING MACHINE OPERATOR-002- Y / / [employer] Easyfuse Staple 20 X 20 Nitinol 2-Leg [id number] - [id number] Implanted:Qty: 1 on 11/06/2023 by Torey Montes MD at [facility] Staple Left: Ankle [employer] [id number] 05/11/2031 [id number] / / [id number] Description:Rogerson EasyFuse Dynamic Compression System 2-Leg Staple W: 20mm L: 20mm LOC [employer] 876p-0400 Mini Ignite Power Mix Injectable Graft 4ml Synthetic Tissue - [id number] - [id number] Implanted:Qty: 1 on 11/06/2023 by Torey Montes MD at [facility] Left: Ankle [employer] [id number] 02/01/2028 [id number] / [id number] / [id number] [employer] Steinmann 3/32mm 9in Trocar Point Pin Fixation Stainless Steel 1624-509ns - [id number] Implanted:Qty: 1 on 11/06/2023 by Torey Montes MD at [facility] Left: Ankle [employer] 1624-509 NS / / [employer] 876p-0400 Mini Ignite Power Mix Injectable Graft 4ml Synthetic Tissue - [id number] - [id number] Implanted:Qty: 1 on 11/06/2023 by Torey Montes MD at [facility] Left: Ankle [employer] [id number] 02/06/2028 [id number] / [id number] / [employer] Graft Bone Augment 3cc Allograft Injectable Kit [id number] - [id number] Implanted:Qty: 1 on 11/06/2023 by Torey Montes MD at [facility] Left: Ankle [employer] [id number] 05/16/2026 [id number] / / [id number] Orthohelix Maxtorque 7mm 70mm Cannulated Self Drill Foot Ankle Petite Thread Fiq-259-55-070p - [id number] Implanted:Qty: 1 on 11/06/2023 by Torey Montes MD at [facility] Left: Ankle Orthohelix MSD-010- 70-070P / / Orthohelix Maxtorque 5.5mm 40mm Cannulated Self Drill Foot Ankle Short Ztj-957-89-040s - [id number] Implanted:Qty: 1 on 11/06/2023 by Torey Montes MD at [facility] Left: Ankle Orthohelix MSD-010- 55-040S / / Orthohelix Maxtorque 5.5mm 45mm Cannulated Self Drill Foot Ankle Short Xxw-452-60-045s - [id number] Implanted:Qty: 1 on 11/06/2023 by Torey Montes MD at [facility] Left: Ankle Orthohelix MSD-010- 55-045S / / Orthohelix 3.5mm 22mm Lock Fix Angle Foot Ankle Screw Bone Nonsterile Ciz-795-32-22 - [id number] Implanted:Qty: 1 on 11/06/2023 by Torey Montes MD at [facility] Left: Ankle Orthohelix TOOL POLISHING MACHINE OPERATOR-021- 35-22 / / Orthohelix Maxlock Extreme 3.5mm 24mm Lock Fix Angle Foot Ankle Screw Bone Latex Free Inh-791-05-24 - [id number] Implanted:Qty: 1 on 11/06/2023 by Torey Montes MD at [facility] Left: Ankle Orthohelix TOOL POLISHING MACHINE OPERATOR-021- 35-24 / / Orthohelix Maxlock Extreme 3.5mm 32.5mm Foot Ankle Screw Bone Nonsterile Eag-161-30-325 - [id number] Implanted:Qty: 2 on 11/06/2023 by Torey Montes MD at [facility] Left: Ankle Orthohelix TOOL POLISHING MACHINE OPERATOR-011- 35-325 / / Explanted Type Area Assistant Activities Director Device Identifier Shelf Expiration Date Model / Serial / Lot [employer] Steinmann 3/32mm 9in Trocar Point Pin Fixation Stainless Steel 1624-509ns - [id number] Explanted:Qty: 6 on 11/06/2023 at [facility] Left: Ankle [employer] [id number] / / Procedures Procedure Name Priority Date/Time Associated Diagnosis Comments XR FOOT LEFT 3 OR MORE VIEWS Schedule Routine, Read Routine (OP Routine) 04/28/2024 9:21 AM SEWAGE DISPOSAL ENGINEER Pain in left foot XR ANKLE LEFT 3 OR MORE VIEWS Schedule Routine, Read Routine (OP Routine) 04/28/2024 9:21 AM SEWAGE DISPOSAL ENGINEER Left ankle pain, unspecified chronicity CT ANKLE LEFT WO CONTRAST Schedule Routine, Read Routine (OP Routine) 03/18/2024 12:27 PM SEWAGE DISPOSAL ENGINEER Pain in left foot Left ankle pain, unspecified chronicity from Last 3 Months Results * XR Foot Left 3+ View (04/28/2024 9:21 AM SEWAGE DISPOSAL ENGINEER) Anatomical Region Laterality Modality Lower Extremities, Foot Left Computed Radiography 04/28/2024 9:28 AM SEWAGE DISPOSAL ENGINEER Impressions 04/28/2024 9:28 AM SEWAGE DISPOSAL ENGINEER 1. Healing internally fixated triple hindfoot arthrodesis. Electronically signed by: Saud Knox D.O. Narrative 04/28/2024 9:28 AM SEWAGE DISPOSAL ENGINEER EXAMINATION: XR ANKLE LEFT 3 OR MORE VIEWS, XR FOOT LEFT 3 OR MORE VIEWS HISTORY: Left ankle and left foot pain COMPARISON: Radiographs 03/03/[address] dated 03/18/2024 FINDINGS: Healing internally fixated triple hindfoot arthrodesis and cotton osteotomy. The hardware is intact and the osseous alignment is unchanged. Ankle mortise is intact. Mild tibiotalar osteoarthritis. Mild to moderate osteoarthritis throughout the midfoot. No acute fractures. Plantar calcaneal spur. Soft tissue swelling around the ankle. Procedure Note Saud Knox, DO - 04/28/2024 EXAMINATION: XR ANKLE LEFT 3 OR MORE VIEWS, XR FOOT LEFT 3 OR MORE VIEWS HISTORY: Left ankle and left foot pain COMPARISON: Radiographs 03/03/[address] dated 03/18/2024 FINDINGS: Healing internally fixated triple hindfoot arthrodesis and cotton osteotomy. The hardware is intact and the osseous alignment is unchanged. Ankle mortise is intact. Mild tibiotalar osteoarthritis. Mild to moderate osteoarthritis throughout the midfoot. No acute fractures. Plantar calcaneal spur. Soft tissue swelling around the ankle. IMPRESSION: 1. Healing internally fixated triple hindfoot arthrodesis. Electronically signed by: Saud Knox D.O. Torey Montes MD IMG XR PROCEDURES Ghislaine l Result * XR Ankle Left 3 or More Views (04/28/2024 9:21 AM SEWAGE DISPOSAL ENGINEER) Anatomical Region Laterality Modality Lower Extremities, Ankle Left Compute d Radiography 04/28/2024 9:28 AM SEWAGE DISPOSAL ENGINEER Impressions 04/28/2024 9:28 AM SEWAGE DISPOSAL ENGINEER 1. Healing internally fixated triple hindfoot arthrodesis. Electronically signed by: Saud Knox D.O. Narrative 04/28/2024 9:28 AM SEWAGE DISPOSAL ENGINEER EXAMINATION: XR ANKLE LEFT 3 OR MORE VIEWS, XR FOOT LEFT 3 OR MORE VIEWS HISTORY: Left ankle and left foot pain COMPARISON: Radiographs 03/03/[address] dated 03/18/2024 FINDINGS: Healing internally fixated triple hindfoot arthrodesis and cotton osteotomy. The hardware is intact and the osseous alignment is unchanged. Ankle mortise is intact. Mild tibiotalar osteoarthritis. Mild to moderate osteoarthritis throughout the midfoot. No acute fractures. Plantar calcaneal spur. Soft tissue swelling around the ankle. Procedure Note Saud Knox, - 04/28/2024 EXAMINATION: XR ANKLE LEFT 3 OR MORE VIEWS, XR FOOT LEFT 3 OR MORE VIEWS HISTORY: Left ankle and left foot pain COMPARISON: Radiographs 03/03/[address] dated 03/18/2024 FINDINGS: Healing internally fixated triple hindfoot arthrodesis and cotton osteotomy. The hardware is intact and the osseous alignment is unchanged. Ankle mortise is intact. Mild tibiotalar osteoarthritis. Mild to moderate osteoarthritis throughout the midfoot. No acute fractures. Plantar calcaneal spur. Soft tissue swelling around the ankle. IMPRESSION: 1. Healing internally fixated triple hindfoot arthrodesis. Electronically signed by: Saud Knox D.O. us Torey Montes MD IMG XR PROCEDURES Ghislaine l Result * CT Ankle Left WO Contrast (03/18/2024 12:27 PM SEWAGE DISPOSAL ENGINEER) Anatomical Region Laterality Modality Ankle Left Computed Tomogra phy 03/18/2024 1:01 PM SEWAGE DISPOSAL ENGINEER Impressions 03/18/2024 1:52 PM SEWAGE DISPOSAL ENGINEER 1. Healing internally fixated triple hindfoot arthrodesis. Dictated by: Saud Knox D.O. The radiology attending physician has personally reviewed this study, and had reviewed and/or edited this written report and agrees with it. Electronically signed by: Chapito Woods M.D. Narrative 03/18/2024 1:52 PM SEWAGE DISPOSAL ENGINEER EXAMINATION: CT ANKLE LEFT WO CONTRAST HISTORY: 4 months status post triple ankle arthrodesis, evaluate healing TECHNIQUE: Transaxial computed tomographic images of the left ankle were obtained without intravenous contrast according to the standard protocol. COMPARISON: Radiographs dated 03/03/[address] dated 09/11/2023 FINDINGS: There are redemonstrated postsurgical changes of a triple hindfoot arthrodesis and Cotton osteotomy. The hardware is intact. There is approximately osseous bridging across the lateral aspect of the talonavicular joint. There is peripheral predominant osseous bridging of the subtalar joint. There is osseous bridging across the dorsal aspect of the calcaneocuboid joint. Overall, there is approximately 60% osseous bridging across the subtalar, talonavicular, and calcaneocuboid joints. There is mild tibiotalar osteoarthritis. There is mild to moderate osteoarthritis of the remainder of the midfoot. There is pes planus. There is a moderate-sized plantar calcaneal spur. There is heterotopic ossification adjacent to the lateral malleolus and medial malleolus, compatible with chronic sprains. The muscles and tendons are intact. There is fatty atrophy of the intrinsic foot musculature. There is a grossly unchanged multiloculated ganglion cyst along the anterior ankle that dissects along the extensor tendons, sinus tarsi, and joint capsule. There is mild soft tissue swelling about the dorsal aspect of the ankle. Neurovascular bundles are unremarkable. Procedure Note Chapito Woods MD - 03/18/2024 EXAMINATION: CT ANKLE LEFT WO CONTRAST HISTORY: 4 months status post triple ankle arthrodesis, evaluate healing TECHNIQUE: Transaxial computed tomographic images of the left ankle were obtained without intravenous contrast according to the standard protocol. COMPARISON: Radiographs dated 03/03/[address] dated 09/11/2023 FINDINGS: There are redemonstrated postsurgical changes of a triple hindfoot arthrodesis and Cotton osteotomy. The hardware is intact. There is approximately osseous bridging across the lateral aspect of the talonavicular joint. There is peripheral predominant osseous bridging of the subtalar joint. There is osseous bridging across the dorsal aspect of the calcaneocuboid joint. Overall, there is approximately 60% osseous bridging across the subtalar, talonavicular, and calcaneocuboid joints. There is mild tibiotalar osteoarthritis. There is mild to moderate osteoarthritis of the remainder of the midfoot. There is pes planus. There is a moderate-sized plantar calcaneal spur. There is heterotopic ossification adjacent to the lateral malleolus and medial malleolus, compatible with chronic sprains. The muscles and tendons are intact. There is fatty atrophy of the intrinsic foot musculature. There is a grossly unchanged multiloculated ganglion cyst along the anterior ankle that dissects along the extensor tendons, sinus tarsi, and joint capsule. There is mild soft tissue swelling about the dorsal aspect of the ankle. Neurovascular bundles are unremarkable. IMPRESSION: 1. Healing internally fixated triple hindfoot arthrodesis. Dictated by: Saud Knox D.O. The radiology attending physician has personally reviewed this study, and had reviewed and/or edited this written report and agrees with it. Electronically signed by: Chapito Woods M.D. Torey Montes MD IMG CT PROCEDURES Ghislaine l Result from Last 3 Months Insurance [employer] [facility] [id number] [facility] [id number] Advance Directives For more information, please contact: [phone] * Full Code (Latest Code Status on File) Date Activated Date Inactivated Comments 11/06/2023 8:33 PM 11/07/2023 7:36 PM Care Teams Director Of Placement Relationship Specialty Start Date End Date Braulio Luu MD [address] [place] [address] PCP - General 11/29/10 Dagmar Lopse DPM [address] [place] [address] Consulting Physician Foot and Ankle Surg 02/01/23
--- OUTSIDE RECORDS SUMMARY | 2024-06-16 01:01 | XMS_ITS | Clinical Summary ---
Author Organization [address] Address [address] [place] [phone] Care Team Providers Care Conciliator Name Role Phone Braulio Luu MD Primary Care Prov ider Dagmar Lopes DPM Unavailable [phone] Allergies Active Allergy Reactions Criticality Noted Date [...] Plan: - Benign, reassurance Lichen planus 11/26/2017 Encounters Date Type Department Care Team Description 04/28/2024 9:11 AM COMPLIANCE FIELD TECHNICIAN - 04/28/2024 11:59 PM COMPLIANCE FIELD TECHNICIAN Hospital Encounter [facility] [id number] [place] [address] Left ankle pain, unspecified chronicity Discharge Disposition: Discharge to home or self care 04/28/2024 9:10 AM COMPLIANCE FIELD TECHNICIAN - 04/28/2024 11:59 PM COMPLIANCE FIELD TECHNICIAN Hospital Encounter [facility] [address] [place] [address] Pain in left foot Discharge Disposition: Discharge to home or self care 04/28/2024 9:00 AM COMPLIANCE FIELD TECHNICIAN Office Visit [facility] Orthopaedic Surgery [address] [place] [address] 2nd [address] [place] [phone] Torey Montes MD Pain in left foot (Primary Dx); Left ankle pain, unspecified chronicity 03/18/2024 12:15 PM COMPLIANCE FIELD TECHNICIAN - 03/18/2024 11:59 PM COMPLIANCE FIELD TECHNICIAN Hospital Encounter [facility] [address] [place] [address] Pain in left foot; Left ankle pain, unspecified chronicity Discharge Disposition: Discharge to home or self care from Last 3 Months Surgical History Surgery Date Site/Laterality Comments VASECTOMY 03/19/1995 - 03/18/1996 KIDNEY STONE SURGERY 03/19/2020 - 03/18/2021 x2 URETHRAL DILATION 1979's and MELANOMA RESECTION 03/19/2013 - 03/18/2014 on back, local only Medical History Medical History Date Comments GERD (gastroesophageal reflux disease) 2005 Arthritis 2007 Family History Medical History Relation Name Comments No Known Problems Brother No Known Problems Daughter No Known Problems Father Arthritis Maternal Grandmother Mikayla Bell Alzheimer's disease Mother Sally Jordan No Known Problems Sister No Known Problems Son Anesthesia problems Neg Hx Relation Name Status Comments Brother Daughter Father Maternal Grandmother Mikayla Bell Mother Sally Jordan Sister Son Social History Tobacco Use Types Packs/Day Years [...] on file Legal Sex Male 1:59 AM COMPLIANCE FIELD TECHNICIAN Gender Identity Not on file Sexual Orientation Not on file Obstetrics History Last Filed Vital Signs Vital Sign Reading [...] 11/06/2023 8:25 PM CDT Plan of Treatment Health Maintenance Due Date Last Done Comments Colon Cancer Screening-Colonoscopy 1960 Depression Screening 1960 Hepatitis C Screening 1960 Prostate Cancer Screening-PSA 1960 DTaP/Tdap/Td Vaccine (1 - Tdap) 1971 Hepatitis B Screening 1978 Regular Well Visit/Exam 18-64 1978 Zoster Vaccine (1 of 2) 2010 Covid-19 Vaccine (2023-2 5 season) 2023 12/21/2020, 06/18/2020, 05/25/2020 Influenza Vaccine (#1) 2023 12/26/2020 Pneumococcal vaccine <65 Aged Out No longer eligible based on patient's age to complete this topic Medical Devices Implanted Type Area Bowling Ball Engraver Device Identifier Shelf Expiration Date Model / Serial / Lot Musculoskeletal Transplant [id number] 4-30mm Allograft Frozen [id number] Wedge Graft Bone [id number] - [id number] - [id number] Implanted:Qty: 1 on 11/06/2023 by Torey Montes MD at [facility] Bone Left: Ankle Musculoskeletal Transplant [id number] 11/04/2027 [id number] / [id number] / Orthohelix Maxlock Extreme Foot Ankle Y Plate Bone Nonsterile Latex Free Bander And Cellophaner Helper Machine-002-Y - [id number] Implanted:Qty: 1 on 11/06/2023 by Torey Montes MD at [facility] Plate Left: Ankle Orthohelix BRICK YARD HAND-002- Y / / mobiTeris [employer] Inc Easyfuse Staple 20 X 20 Nitinol 2-Leg [id number] - [id number] Implanted:Qty: 1 on 11/06/2023 by Torey Montes MD at [facility] Staple Left: Ankle mobiTeris Medical Technology Inc [id number] 05/11/2031 [id number] / / [id number] Description:Chromatik EasyFuse Dynamic Compression System 2-Leg Staple W: 20mm L: 20mm [employer] 876p-0400 Mini Ignite Power Mix Injectable Graft 4ml Synthetic Tissue - [id number] - [id number] Implanted:Qty: 1 on 11/06/2023 by Torey Montes MD at [facility] Left: Ankle [employer] [id number] 02/01/2028 [id number] / [id number] / [id number] [employer]aire [employer] Steinmann 3/32mm 9in Trocar Point Pin Fixation Stainless Steel 8521-489ns - [id number] Implanted:Qty: 1 on 11/06/2023 by Torey Montes MD at [facility] Left: Ankle [employer] [id number] / / [employer] 876p-0400 Mini Ignite Power Mix Injectable Graft 4ml Synthetic Tissue - [id number] - [id number] Implanted:Qty: 1 on 11/06/2023 by Torey Montes MD at [facility] Left: Ankle [employer] [id number] 02/06/2028 [id number] / [id number] / PixelPlay Inc Graft Bone Augment 3cc Allograft Injectable Kit [id number] - [id number] Implanted:Qty: 1 on 11/06/2023 by Torey Montes MD at [facility] Left: Ankle [employer] Inc [id number] 05/16/2026 [id number] / / [id number] Orthohelix Maxtorque 7mm 70mm Cannulated Self Drill Foot Ankle Petite Thread Nxm-427-94-070p - [id number] Implanted:Qty: 1 on 11/06/2023 by Torey Montes MD at [facility] Left: Ankle Orthohelix MSD-010- 70-070P / / Orthohelix Maxtorque 5.5mm 40mm Cannulated Self Drill Foot Ankle Short Khe-666-38-040s - [id number] Implanted:Qty: 1 on 11/06/2023 by Torey Montes MD at [facility] Left: Ankle Orthohelix MSD-010- 55-040S / / Orthohelix Maxtorque 5.5mm 45mm Cannulated Self Drill Foot Ankle Short Qsq-501-79-045s - [id number] Implanted:Qty: 1 on 11/06/2023 by Torey Montes MD at [facility] Left: Ankle Orthohelix MSD-010- 55-045S / / Orthohelix 3.5mm 22mm Lock Fix Angle Foot Ankle Screw Bone Nonsterile Eqd-649-53-22 - [id number] Implanted:Qty: 1 on 11/06/2023 by Torey Montes MD at [facility] Left: Ankle Orthohelix BRICK YARD HAND-021- 35-22 / / Orthohelix Maxlock Extreme 3.5mm 24mm Lock Fix Angle Foot Ankle Screw Bone Latex Free Tiw-329-34-24 - [id number] Implanted:Qty: 1 on 11/06/2023 by Torey Montes MD at [facility] Left: Ankle Orthohelix BRICK YARD HAND-021- 35-24 / / Orthohelix Maxlock Extreme 3.5mm 32.5mm Foot Ankle Screw Bone Nonsterile Uif-951-44-325 - [id number] Implanted:Qty: 2 on 11/06/2023 by Torey Montes MD at [facility] Left: Ankle Orthohelix BRICK YARD HAND-011- 35-325 / / Explanted Type Area Bowling Ball Engraver Device Identifier Shelf Expiration Date Model / Serial / Lot [employer]aire [employer] Steinmann 3/32mm 9in Trocar Point Pin Fixation Stainless Steel 1624-509ns - [id number] Explanted:Qty: 6 on 11/06/2023 at [facility] Left: Ankle [employer] [id number] / / Procedures Procedure Name Priority Date/Time Associated Diagnosis Comments XR FOOT LEFT 3 OR MORE VIEWS Schedule Routine, Read Routine (OP Routine) 04/28/2024 9:21 AM COMPLIANCE FIELD TECHNICIAN Pain in left foot XR ANKLE LEFT 3 OR MORE VIEWS Schedule Routine, Read Routine (OP Routine) 04/28/2024 9:21 AM COMPLIANCE FIELD TECHNICIAN Left ankle pain, unspecified chronicity CT ANKLE LEFT WO CONTRAST Schedule Routine, Read Routine (OP Routine) 03/18/2024 12:27 PM COMPLIANCE FIELD TECHNICIAN Pain in left foot Left ankle pain, unspecified chronicity from Last 3 Months Results * XR Foot Left 3+ View (04/28/2024 9:21 AM COMPLIANCE FIELD TECHNICIAN) Anatomical Region Laterality Modality Lower Extremities, Foot Left Computed Radiography 04/28/2024 9:28 AM COMPLIANCE FIELD TECHNICIAN Impressions 04/28/2024 9:28 AM COMPLIANCE FIELD TECHNICIAN 1. Healing internally fixated triple hindfoot arthrodesis. Electronically signed by: Saud Knox D.O. Narrative 04/28/2024 9:28 AM COMPLIANCE FIELD TECHNICIAN EXAMINATION: XR ANKLE LEFT 3 OR MORE [...] 3 or More Views (04/28/2024 9:21 AM COMPLIANCE FIELD TECHNICIAN) Anatomical Region Laterality Modality Lower Extremities, Ankle Left Compute d Radiography 04/28/2024 9:28 AM COMPLIANCE FIELD TECHNICIAN Impressions 04/28/2024 9:28 AM COMPLIANCE FIELD TECHNICIAN 1. Healing internally fixated triple hindfoot arthrodesis. Electronically signed by: Saud Knox D.O. Narrative 04/28/2024 9:28 AM COMPLIANCE FIELD TECHNICIAN EXAMINATION: XR ANKLE LEFT 3 OR MORE [...] tissue swelling around the ankle. Procedure Note KnoxSaud carbajal, DO - 04/28/2024 EXAMINATION: XR ANKLE LEFT [...] Ankle Left WO Contrast (03/18/2024 12:27 PM COMPLIANCE FIELD TECHNICIAN) Anatomical Region Laterality Modality Ankle Left Computed Tomogra phy 03/18/2024 1:01 PM COMPLIANCE FIELD TECHNICIAN Impressions 03/18/2024 1:52 PM COMPLIANCE FIELD TECHNICIAN 1. Healing internally fixated triple hindfoot arthrodesis. Dictated by: Saud Knox D.O. The radiology attending physician has personally reviewed this study, and had reviewed and/or edited this written report and agrees with it. Electronically signed by: Chapito Woods M.D. Narrative 03/18/2024 1:52 PM COMPLIANCE FIELD TECHNICIAN EXAMINATION: CT ANKLE LEFT WO CONTRAST HISTORY: [...] it. Electronically signed by: Chapito Woods M.D. us Torey Montes MD IMG CT PROCEDURES Ghislaine l Result from Last 3 Months Insurance [facility] [id number] Advance Directives For more information, please contact: [phone] * Full Code (Latest Code Status on File) Date Activated Date Inactivated Comments 11/06/2023 8:33 PM 11/07/2023 7:36 PM Care Teams Conciliator Relationship Specialty Start Date End Date Braulio Luu MD [address] [place] [id number] PCP - General 11/29/10 Dagmar Lopes DPM [address] [place] [address] Consulting Physician Foot and Ankle Surg 02/01/23
--- OUTSIDE RECORDS SUMMARY | 2024-06-16 01:01 | XMS_ITS | Clinical Summary ---
Author Organization [facility] Address [address] [place] [address] Care Team Providers Care Nursing Informatics Analyst Name Role Phone Braulio Luu MD Primary Care Provider + Source Comments [facility],non-owned Affiliates and Associated Physician Practices is amultiple site organization consisting of ambulatory clinics and hospital sitesin [place], [place], [place] and [place]. This disclosure is being madepursuant to the Care Everywhere program and may not contain all information available regarding this patient. Last updated 17.[facility] Allergies Active Allergy Reactions Criticality Noted Date Comments Levaquin Skin Reactions Medium 03/02/2014 Levofloxacin Urticaria Medium 03/02/2014 Hmg-Coa-R Inhibitors Other 04/10/2022 Joint pain, swelling Medications * Be aware that medications may not be up to date on this document. Alwaysverify current medications with the patient. Medication Sig Dispensed Refills Start Date End Date Status desvenlafaxine SR 24hr (PRISTIQ) 50 MG tablet Take 1 (one) tablet by mouth DAILY 06/03/2016 Active ALPRAZolam (XANAX) 1 MG tablet Take 1 (one) tablet by mouth once daily 02/25/2014 Active losartan-hydroCHLORO thiazide (HYZAAR) 100-25 MG tablet Take 1 (one) tablet by mouth once daily 05/05/2017 Active ketoconazole (NIZORAL) 2 % creamIndications:Tin ea pedis of both feet Apply to affected area on feet and between toe webbings twice daily until at least 2 weeks after complete clearance. 30 days supply. 60 g 5 09/09/2018 Active Additional Information Patient not taking.Reported on 03/17/2019 atorvastatin (LIPITOR) 40 MG tablet 01/21/2019 Active esomeprazole (NEXIUM) 40 MG capsule 02/28/2019 Active candesartan (ATACAND) 32 MG tablet 02/20/2019 Active fluocinonide (LIDEX) 0.05 % creamIndications:Jv h and nonspecific skin eruption APPLY TO FOREARMS TWICE DAILY 30 DAYS SUPPLY. 60 g 04/02/2019 Active Additional Information Patient not taking.Reported on 04/10/2022 ezetimibe (ZETIA) 10 MG tablet Take 1 (one) tablet by mouth once daily 02/25/2020 Active Active Problems Problem Noted Date Diagnosed Date Multiple benign melanocytic nevi of upper and lower extremities and trunk 03/22/2020 Assessment & Plan (03/22/2020 10:48 AM RECREATION CENTER DIRECTOR): - Benign, reassurance - Counseled on importance of daily sun protection (Broad spectrum, SPF >30), monthly self skin exams - Reviewed ABCDEs of melanoma - Sun screen hand out provided Seborrheic keratosis 03/22/2020 Assessment & Plan (03/22/2020 10:49 AM RECREATION CENTER DIRECTOR): - Benign, reassurance 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 Assessment & Plan (03/22/2020 10:49 AM RECREATION CENTER DIRECTOR): - Benign, reassurance 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 - We discussed the role of sun protection with a UVA and UVB sunscreen, appropriate application, and the need for daily use. Encounters Date Type Department Care Team Description 04/21/2024 8:30 AM RECREATION CENTER DIRECTOR Office Visit [facility] - General Dermatology [address] [place] [address] Massiel Deleon MD Seborrheic keratosis (Primary Dx); Lentigines; Multiple benign melanocytic nevi of both upper extremities, both lower extremities, and trunk; Mane angioma; History of malignant melanoma; Neoplasm of uncertain behavior of skin 04/21/2024 Travel from Last 3 Months Immunizations Name Administration Dates Next Due INFLUENZA VACCINE 12/26/2020 Family History Medical History Relation Name Comments Arthritis - Rheumatoid Father Cancer Father skin Cancer - Skin, Melanoma Father Diabetes Father High Cholesterol Father Hypertension Father Arthritis - Osteo Mother Cancer Mother lymphoma High Cholesterol Mother Hypertension Mother Thyroid Disease Mother Allergy (Severe) Neg Hx Asthma Neg Hx CVA Neg Hx Cancer - Breast Neg Hx Cancer - Other Neg Hx Cancer - Skin, Non Melanoma Neg Hx Eczema Neg Hx Hemophilia Neg Hx Psoriasis Neg Hx Rashes/Skin Problems Neg Hx Relation Name Status Comments Father Mother Social History Tobacco Use Types Packs/Day Years Used Date Smoking Tobacco: Never Smokeless Tobacco: Never Tobacco Cessation:Counseling Given: Not Answered Alcohol Use Standard Drinks/Week Comments Yes 0 (1 standard drink = 0.6 oz pur e alcohol) Sex and Gender Information Value Date Recorded Sex Assigned at Not on file Gender Identity Not on file Sexual Orientation Not on file Last Filed Vital Signs Vital Sign Reading Time Taken Comments Blood Pressure 126/86 03/02/2014 3:46 PM RECREATION CENTER DIRECTOR Pulse 96 03/02/2014 3:46 PM RECREATION CENTER DIRECTOR Temperature - - Respiratory Rate - - Oxygen Saturation 96% 03/02/2014 3:46 PM RECREATION CENTER DIRECTOR Inhaled Oxygen Concentration - - Weight 136.5 kg (301 lb) 03/02/2014 2:41 PM RECREATION CENTER DIRECTOR Height 182.9 cm (6') 03/02/2014 2:41 PM RECREATION CENTER DIRECTOR Body Mass Index 40.82 03/02/2014 2:41 PM RECREATION CENTER DIRECTOR Plan of Treatment Upcoming Encounters Date Type Department Care Team (Late st Contact Info) Description 04/27/2025 8:30 AM RECREATION CENTER DIRECTOR Office Visit [facility] - General Dermatology [address], [address] [place] [address] Massiel Deleon MD [address] [facility] [address] [place] [address] Health Maintenance Due Date Last Done Comments COLOGUARD (AGES 45-75) - COL ON CA SCREENING 1960 COLON MONITORING 1960 COLONOSCOPY - COLON CA SCREENING 1960 CT COLONOGRAPHY - COLON CA SCREENING 1960 Colorectal Cancer Screening 1960 FIT - COLON CA SCREENING 1960 FLEX SIG - COLON CA SCREENING 1960 HIV SCREENING 1975 DTAP/TDAP/TD VACCINES (1 - Tdap) 1979 PNEUMOCOCCAL VACCINE 50+ (1 of 1 - PCV) 2010 ZOSTER VACCINE (1 of 2) 2010 Respiratory Syncytial Virus (RSV) Vaccine Pt: or over 60 yrs (1 - Risk 60-74 years 1-dose series) 2020 COVID-19 VACCINE (1 - 2023-2 5 season) 2023 INFLUENZA VACCINE (#1) 2023 12/26/2020 DEPRESSION SCREENING 03/19/2024 HEPATITIS C SCREENING Completed 08/27/2017 HEPATITIS B VACCINE Aged Out No longe r eligible based on patient's age to complete this topic HIB VACCINE Aged Out No longer eligi ble based on patient's age to complete this topic HPV VACCINE Aged Out No longer eligi ble based on patient's age to complete this topic MENINGOCOCCAL (Group B) VACC INE SHARED DECISION-MAKING Aged Out No longer eligibl e based on patient's age to complete this topic MENINGOCOCCAL GROUPS A/C/Y/W VACCINE Aged Out No longer eligible b ased on patient's age to complete this topic Procedures Procedure Name Priority Date/Time Associated Diagnosis Comments TN TANGNTL BX SKIN SINGLE LES Routine 04/21/2024 8:51 AM RECREATION CENTER DIRECTOR Neoplasm of uncertain behavior of skin DERMATOPATHOLOGY Routine 04/21/2024 12:0 0 AM RECREATION CENTER DIRECTOR Neoplasm of uncertain behavior of skin HEPATITIS C ANTIBODY Routine 08/27/2017 11:06 AM CDT Rash and nonspecific skin eruption from Last 3 Months or Most Recently Relevant to Health Maintenance Results * TN TANGNTL BX SKIN SINGLE LES (04/21/2024 8:51 AM RECREATION CENTER DIRECTOR) Narrative Massiel Deleon MD - 04/21/2024 8:51 AM RECREATION CENTER DIRECTOR Stan Lamar MD 04/21/2024 8:53 AM Risks, benefits and alternatives to shave biopsy were discussed with the patient. Pt understands the possibility for the following: Bleeding, infection, scar (100% chance), the possibility of non-diagnostic reading and the potential need for further testing or treatment, including surgical. Stated clearly the size of the specimen and the need to obtain adequate tissue for the most accurate path reading. Pt accepts all of above, verbal consent was obtained. Location: central back Diagnosis: neoplasm of uncertain behavior, r/o melanoma Skin prep: Alcohol Anesthesia: 1% lidocaine with epinephrine Hemostasis: Aluminum chloride Dressing and wound care discussed Stan Lamar MD Massiel Deleon MD PROCEDURE/MINOR SURG ICAL ORDERABLES * DERMATOPATHOLOGY (04/21/2024 12:00 AM RECREATION CENTER DIRECTOR) Case Report Dermatopathology Report Case: [id number] Authorizing Provider: Massiel Deleon MD Collected: 04/21/2024 12:00 AM Ordering Location: [facility] - Received: 04/22/2024 10:34 AM General Dermatology Pathologist: Kaia Fraser MD Specimen: Skin, central back 2:46 PM RECREATION CENTER DIRECTOR DERMATOPATHOLOGY LABORATORY Final Diagnosis Specimen A. SKIN, central back: COMPOUND MELANOCYTIC NEVUS, IRRITATED (D22.5) 2:46 PM RECREATION CENTER DIRECTOR DERMATOPATHOLOGY LABORATORY Clinical History Favor Nevus, ddx Includes Melanoma 2:46 PM RECREATION CENTER DIRECTOR DERMATOPATHOLOGY LABORATORY Gross Description Specimen A: Received is one formalin filled container labeled with the patient's name and designated central back. The specimen consists of a shave biopsy measuring [id number] mm. Jar 0. 2:46 PM [facility] DERMATOPATHOLOGY LABORATORY Microscopic Description Specimen A. SKIN, central back: There is melanin pigment in the stratum corneum. There are nests of melanocytes at the dermal-epidermal junction and within the dermis. MART-1/Melan-A immunohistochemical stain highlights the melanocytes as above. 2:46 PM [facility] DERMATOPATHOLOGY LABORATORY Disclaimer An external and internal positive and negative controls are appropriate for the histochemical, immunohistochemical and immunofluorescence stain(s) in this case (if any), except where stated explicitly. The performance characteristics of the stain(s) cited in this report were developed and its performance characteristic determined by the Dermatopathology Laboratory at [facility], directed by Dr. Celso Pizarro. These tests need not be, and therefore are not, approved by the [place] Food and Drug Administration. The tests are used for clinical purposes. Billing Codes Specimen Charges Stain Charges 76369 1 86220 1 2:46 PM [facility] DERMATOPATHOLOGY LABORATORY Embedded Images 2:46 PM [facility] DERMATOPATHOLOGY LABORATORY Pathology/Cytolog y TISSUE SPECIMEN FROM SKIN / Unknown 04/21/2024 04/22/2024 10:34 AM [facility] Massiel Deleon MD LAB - PATHOLOGY/CYTO LOGY ORDERABLES DERMATOPATHOLOGY LABORATORY [facility] - Department of Dermatology [address], [address] [phone] * HEPATITIS C ANTIBODY (08/27/2017 11:06 AM CDT) Hepatitis C Antibody <0.1 0.0 - 0.9 s/co ratio [facility] INSURANCE BILL Comment: Negative: < 0.8 Indeterminate: 0.8 - 0.9 Positive: > 0.9 . The CDC recommends that a positive HCV antibody result be followed up with a HCV Nucleic Acid Amplification test (231079). FASTING Blood BLOOD SPECIMEN / Unknown 08/27/2017 11:06 AM CDT 08/27/2017 Narrative Resulting Agency Comment [facility] [address] [facility] [id number] Massiel Deleon MD LAB - CHEMISTRY SCOTTY DRIVER [facility] INSURANCE BILL [address] [place] [address] from Last 3 Months or Most Recently Relevant to Health Maintenance Care Teams Nursing Informatics Analyst Relationship Specialty Start Date End Date Braulio Luu MD [address] [address] PCP - General 01/20/08
[2024-06-16 07:50] VITALS: BP 143/91; PULSE 87; RESP 20; TEMP 36.1; O2SAT 96; BMI 42.7
[2024-06-16] MEDS: LACTATED RINGERS 1,000 ML 150 ML IV CONT (08:02)
--- NOTE | 2024-06-16 08:18 | P.PNAN_ITS ---
Anes - Initial Pre Proc Eval Procedure: Operation Date: 06/16/24 08:30 Proposed Procedures p Screening Colonoscopy - Agapito Gomes MD Date/Time: 06/16/24 08:18 Surgeon: Agapito Gomes MD Pre Op Diagnosis: Screening Patient Data Age: 64 Gender: M Height: 1.83 m Weight: 143.1 kg Last Vital Signs Temp 97 F L 06/16/24 07:50 Pulse 87 06/16/24 07:50 Resp 20 06/16/24 07:50 BP 143/91 H 06/16/24 07:50 Pulse Ox 96 06/16/24 07:50 O2 Del Method Room Air 06/16/24 07:50 Allergies Allergy/AdvReac Type Severity Reaction Status Date / Time Quinolones Allergy Severe Rash Verified 06/16/24 07:49 atorvastatin Allergy Unknown Joint Pain Verified 06/16/24 07:49 Home Medications ?Medication ?Instructions ?Recorded ?Confirmed ?Type meloxicam 15 mg tablet 15 mg PO DAILY #90 tabs 10/07/23 06/16/24 Rx desvenlafaxine succinate 50 mg See Rx Instructions .Route 01/03/24 06/16/24 Rx tablet,extended release 24 hr .COMPLEX #90 tabs candesartan 32 mg tablet 32 mg PO DAILY #90 tabs 01/16/24 06/16/24 Rx esomeprazole magnesium 40 mg 40 mg PO BID #180 caps 03/07/24 06/16/24 Rx capsule,delayed release metoclopramide HCl 10 mg tablet 10 mg PO QHS nausea and vomiting 05/21/24 06/16/24 Rx #30 tabs pravastatin 20 mg tablet 20 mg PO DAILY #90 tabs 05/21/24 06/16/24 Rx semaglutide (weight loss) 0.25 0.25 mg (0.5 mL) subcut WEEKLY #2 05/21/24 06/05/24 Rx mg/0.5 mL subcutaneous pen mL injector (Wesigridvnadia) tamsulosin 0.4 mg capsule 0.4 mg PO DAILY 05/21/24 06/16/24 History Patient hx anesthesia problems: none Family hx anesthesia problems: none Results Review: All pre-operative results and documents have been reviewed as part of the pre- operative evaluation. [facility] Past Medical History Medical History Rotator cuff tear, right Massive deficiency Right distal ureteral calculus Arthritis Mixed anxiety and depressive disorder Ventral hernia Morbid (severe) obesity due to excess calories Essential (primary) hypertension Pure hypercholesterolemia, unspecified Hepatic steatosis (11/2018) Kidney stone on right side Bladder outlet obstruction Right ureteral calculus GERD (gastroesophageal reflux disease) Surgical History Surgical History History of foot surgery (10/2023) Left triple arthrodesis w/ graft H/O dilation of urethra H/O vasectomy H/O cystoscopy History of tonsillectomy Family History Family History Father Diabetes mellitus Hypertension Mother Hypertension Dementia Lymphedema Social History Social History Social History: He is and has 2 children. 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 Patient is a lifelong nonsmoker. He rarely drinks. His is the durable power managing attorney for healthcare. Code status full code Smoking status: Never smoker Second hand tobacco smoke exposure: No Alcohol intake: current Drinks per week: 4 Alcohol use details: Occasionally Substance use: never Substance use type: does not use Lack of Transportation: No Lack of Food: Never True Current Housing: I Have Housing Concerned About Future Housing: No Difficulty Paying Gas/Electric Bills: No Difficulty Paying for Meds: No Currently Unemployed: No Education: Master's Degree or Higher Difficulty w/ Childcare or Family Care: No Living arrangements: with family Additional living arrangements comments: with sp Occupation/Education: retired Gender identity (if verbalized by the patient): Male Sexual Orientation (if Verbalized by the Patient): Straight or Heterosexual Spiritual care concerns: No Agree to blood products: Yes Anes - Eval Final PreProcedure Day of Procedure 06/16/24 08:18 Patient weight: morbidly obese Lungs: normal air movement Airway: Mallampati scale class II Neurological: alert and oriented Last oral intake: >/= 8 hours ASA classification: III Emergent: no Anesthetic plan: proceed Anesthesia type and monitoring: general GIVS and standard monitoring Results Review: All pre-operative results and documents have been reviewed as part of the pre- operative evaluation. HTN, hyperlipidemia, BMI 42. Pt never started on GLP1. Informed Consent: The patient's anesthetic plan and its attendant risks and benefits were discussed with the patient/family/POA. Questions were solicited and answers provided to the satisfaction of the patient/family/POA.
--- NOTE | 2024-06-16 08:20 | PM.HPGS ---
History of Present Illness History of Present Illness Consent: Risks, benefits, and alternatives have been discussed and questions answered. Patient agrees to proceed with procedure. Chief complaint: Screening Narrative: Santino Jordan is a 64 year old male here for screening colonoscopy, last one about 10 years ago Review of Systems Review of Systems: All systems reviewed & are unremarkable except as noted in HPI and below PMFSH Past Medical History Medical History (Updated 06/16/24 @ 08:21 by Agapito Gomes MD) Colon cancer screening Rotator cuff tear, right Massive deficiency Right distal ureteral calculus Arthritis Mixed anxiety and depressive disorder Ventral hernia Morbid (severe) obesity due to excess calories Essential (primary) hypertension Pure hypercholesterolemia, unspecified Hepatic steatosis (11/2018) Kidney stone on right side Bladder outlet obstruction Right ureteral calculus GERD (gastroesophageal reflux disease) Surgical History Surgical History History of foot surgery (10/2023) Left triple arthrodesis w/ graft H/O dilation of urethra H/O vasectomy H/O cystoscopy History of tonsillectomy Family History Family History Father Diabetes mellitus Hypertension Mother Hypertension Dementia Lymphedema Social History Social History Social History: He is and has 2 children. 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 Patient is a lifelong nonsmoker. He rarely drinks. His is the durable power real estate associate attorney for healthcare. Code status full code Smoking status: Never smoker Second hand tobacco smoke exposure: No Alcohol intake: current Drinks per week: 4 Alcohol use details: Occasionally Substance use: never Substance use type: does not use Lack of Transportation: No Lack of Food: Never True Current Housing: I Have Housing Concerned About Future Housing: No Difficulty Paying Gas/Electric Bills: No Difficulty Paying for Meds: No Currently Unemployed: No Education: Master's Degree or Higher Difficulty w/ Childcare or Family Care: No Living arrangements: with family Additional living arrangements comments: with sp Occupation/Education: retired Gender identity (if verbalized by the patient): Male Sexual Orientation (if Verbalized by the Patient): Straight or Heterosexual Spiritual care concerns: No Agree to blood products: Yes Meds Home Medications and Allergies Home Medications ?Medication ?Instructions ?Recorded ?Confirmed ?Type meloxicam 15 mg tablet 15 mg PO DAILY #90 tabs 10/07/23 06/16/24 Rx desvenlafaxine succinate 50 mg See Rx Instructions .Route 01/03/24 06/16/24 Rx tablet,extended release 24 hr .COMPLEX #90 tabs candesartan 32 mg tablet 32 mg PO DAILY #90 tabs 01/16/24 06/16/24 Rx esomeprazole magnesium 40 mg 40 mg PO BID #180 caps 03/07/24 06/16/24 Rx capsule,delayed release metoclopramide HCl 10 mg tablet 10 mg PO QHS nausea and vomiting 05/21/24 06/16/24 Rx #30 tabs pravastatin 20 mg tablet 20 mg PO DAILY #90 tabs 05/21/24 06/16/24 Rx semaglutide (weight loss) 0.25 0.25 mg (0.5 mL) subcut WEEKLY #2 05/21/24 06/05/24 Rx mg/0.5 mL subcutaneous pen mL injector ([employer]) tamsulosin 0.4 mg capsule 0.4 mg PO DAILY 05/21/24 06/16/24 History Allergies Allergy/AdvReac Type Severity Reaction Status Date / Time Quinolones Allergy Severe Rash Verified 06/16/24 07:49 atorvastatin Allergy Unknown Joint Pain Verified 06/16/24 07:49 Vital Signs Vital Signs - 24 hr 06/16/24 07:50 Temperature 97 F L Pulse Rate 87 Respiratory Rate 20 Blood Pressure 143/91 H Pulse Oximetry 96 Oxygen Delivery Room Air Exam Const: General: comfortable and no acute distress HENMT: Face/Nose/Sinus: Normal nares present Eyes: General: appearance normal, both eyes and all related structures Neck: Neck: no JVD Resp: Auscultation: clear to auscultation bilaterally Cardio: Rate: regular rate Rhythm: regular rhythm GI: Inspection: non-distended GI Palp: Yes Soft to palpation Skin: General skin exam: normal color Neuro: General: gait normal Speech: normal speech Extrem: General: normal to inspection Psych: Mental Status: mental status grossly normal Assessment and Plan Assessment and plan (1) Colon cancer screening: Code(s): Z12.11 - Encounter for screening for malignant neoplasm of colon Status: Acute Assessment and Plan: colonoscopy
[2024-06-16 08:43] VITALS: BP 122/66; PULSE 98; RESP 18; O2SAT 98
[2024-06-16 08:53] VITALS: BP 117/72; PULSE 75; RESP 21; O2SAT 100
[2024-06-16 09:02] VITALS: BP 132/64; PULSE 73; RESP 24; O2SAT 100
== END 2024-06-16 09:10 | disposition home or self-care (01) ==
PROVIDERS: PCP Family Medicine Adolescent Medicine; Referring Provider Family Medicine Adolescent Medicine; Visit Provider Internal Medicine Gastroenterology
PROC: 0DJD8ZZ Inspection of Lower Intestinal Tract, Via Natural or Artificial Opening Endoscopic (ICD-10-PCS; CPT 45378; principal; 2024-06-16 08:30)
DX: Z12.11 Encounter for screening for malignant neoplasm of colon (principal); K63.5 Polyp of colon; K64.8 Other hemorrhoids; K57.30 Diverticulosis of large intestine without perforation or abscess without bleeding; I10 Essential (primary) hypertension; E78.00 Pure hypercholesterolemia, unspecified; K21.9 Gastro-esophageal reflux disease without esophagitis; F41.8 Other specified anxiety disorders; M19.90 Unspecified osteoarthritis, unspecified site; E66.01 Morbid (severe) obesity due to excess calories; Z68.41 Body mass index [BMI] 40.0-44.9, adult; Z79.85 Long-term (current) use of injectable non-insulin antidiabetic drugs; Z98.890 Other specified postprocedural states; Z87.442 Personal history of urinary calculi; Z87.19 Personal history of other diseases of the digestive system
CPT/HCPCS: 45385; 88305; J2003; J2704; J7120

== ENCOUNTER 2024-07-23 10:07 | Outpatient (CLI) | payer OTHER, SELFPAY ==
--- NOTE | 2024-07-23 10:14 | ECG_ITS ---
Test Date: 2024-07-23 10:19:30 Measurements Intervals [place] Rate: 80 P: 54 AR: 169 QRS: 13 QRSD: 100 T: 34 QT: 358 QTc: 415 Interpretive Statements SINUS RHYTHM No previous ECG available for comparison Electronically Signed On 07-23-2024 14:08:38 CDT by Farooq Ndiaye M.D.
[2024-07-23 10:35] LABS: Basophils Percent Auto 0.7 % (0.2-1.2); Eosinophils Absolute Auto 0.1 K/mm3 (0-0.3); Eosinophils Percent Auto 2.1 % (0-4.4); Hematocrit 40.5 % (42.0-52.0); Hemoglobin 12.7 g/dL (14.0-18.0); Immature Granulocyte Absolute 0.01 K/mm3 (0.00-0.031); Immature Granulocyte Percent A 0.2 % (0-0.5); Lymphocytes Absolute Auto 1.16 K/mm3 (0.9-3.2); Lymphocytes Percent Auto 27.5 % (18.3-44.2); Mean Corpuscular HGB Conc 31.4 g/dl (32-36); Mean Corpuscular Hemoglobin 29.8 pg (26-34); Mean Corpuscular Volume 95.1 fl (80-100); Mean Platelet Volume 9.6 fl (7.4-10.4); Monocytes Absolute Auto 0.4 K/mm3 (0.1-0.6); Monocytes Percent Auto 10.2 % (2.6-8.5); Neutrophils Absolute Auto 2.5 K/mm3 (1.3-6.7); Neutrophils Percent Auto 59.3 % (45.5-73.1); Platelet Count Result 218 k/mm3 (150-375); Red Blood Count 4.26 M/mm3 (4.6-6.20); Red Cell Distribution Width 13.2 % (11.5-14.5); White Blood Count 4.2 K/mm3 (4.5-10.0)
[2024-07-23 10:47] LABS: Anion Gap 5 mmol/L (4-12); Blood Urea Nitrogen 19 mg/dL (9-20); Calcium 9.1 mg/dL (8.4-10.2); Carbon Dioxide 31 mmol/L (22-30); Chloride 104 mmol/L (98-107); Estimated Glomerular Filt Rate > 60; Glucose 126 mg/dL (65-110); Potassium 5.2 mmol/L (3.4-5.0); Sodium 140 mmol/L (137-145)
--- OUTSIDE RECORDS SUMMARY | 2024-07-23 10:50 | XMS_ITS | Clinical Summary ---
Author Organization [address] Address [address] [place] [id number] Care Team Providers Care Orthotist/Prosthetist Name Role Phone Braulio Luu MD Primary Care Prov ider Dagmar Lopes DPM Unavailable Allergies Active Allergy Reactions Criticality Noted Date [...] Department Care Team Description 04/28/2024 9:11 AM CONCESSION STAND ATTENDANT - 04/28/2024 11:59 PM CONCESSION STAND ATTENDANT Hospital Encounter [facility] [address] [place] [id number] Left ankle pain, unspecified chronicity Discharge Disposition: Discharge to home or self care 04/28/2024 9:10 AM CONCESSION STAND ATTENDANT - 04/28/2024 11:59 PM CONCESSION STAND ATTENDANT Hospital Encounter [facility] [address] [place] [phone] Pain in left foot Discharge Disposition: Discharge to home or self care 04/28/2024 9:00 AM CONCESSION STAND ATTENDANT Office Visit [facility] Orthopaedic Surgery [address] [place] [address] [address] [place] [id number] Torey Montes MD Pain in left foot (Primary Dx); Left ankle pain, unspecified chronicity from Last 3 Months Surgical History Surgery [...] Father Maternal Grandmother Mikayla Bell Mother Sally Nikki Sister Son Social History Tobacco Use Types [...] on file Legal Sex Male 1:59 AM CONCESSION STAND ATTENDANT Gender Identity Not on file Sexual Orientation [...] Vaccine (1 of 2) 2010 Covid-19 Vaccine (4 - 2023-2 5 season) 2023 12/21/2020, 06/18/2020, 05/25/2020 Influenza Vaccine (Season Ended) 2024 12/26/2020 Pneumococcal vaccine <65 Aged Out No longer eligible based on patient's age to complete this topic Medical Devices Implanted Type Area Credit Administration Manager Device Identifier Shelf Expiration Date Model / Serial / Lot Musculoskeletal Transplant [id number] 4-30mm Allograft Frozen [id number] Wedge Graft Bone [id number] - [id number] - [id number] Implanted:Qty: 1 on 11/06/2023 by Torey Montes MD at [facility] Bone Left: Ankle Musculoskeletal Transplant [id number] 11/04/2027 [id number] / [id number] / Orthohelix Maxlock Extreme Foot Ankle Y Plate Bone Nonsterile Latex Free Senior Fund Accountant-002-Y - [id number] Implanted:Qty: 1 on 11/06/2023 by Torey Montes MD at [facility] Plate Left: Ankle Orthohelix CAMP HOUSEKEEPER-002- Y / / [employer] Easyfuse Staple 20 X 20 Nitinol 2-Leg [id number] - [id number] Implanted:Qty: 1 on 11/06/2023 by Torey Montes MD at [facility] Staple Left: Ankle [employer] [id number] 05/11/2031 [id number] / / [id number] Description:Nitol Solar EasyFuse Dynamic Compression System 2-Leg Staple W: 20mm L: 20mm [employer] 876p-0400 Mini Ignite Power Mix Injectable Graft 4ml Synthetic Tissue - [id number] - [id number] Implanted:Qty: 1 on 11/06/2023 by Torey Montes MD at [facility] Left: Ankle [employer] [id number] 02/01/2028 [id number] / [id number] / [id number] [employer] Steinmann 3/32mm 9in Trocar Point Pin Fixation Stainless Steel 1624-509ns - [id number] Implanted:Qty: 1 on 11/06/2023 by Torey Montes MD at [facility] Left: Ankle [employer] 1624-509 NS / / [employer] 876p-0400 Mini Ignite Power Mix Injectable Graft 4ml Synthetic Tissue - [id number] - [id number] Implanted:Qty: 1 on 11/06/2023 by Torey Montes MD at [facility] Left: Ankle [employer] [id number] 02/06/2028 [id number] / [id number] / [employer] Graft Bone Augment 3cc Allograft Injectable Kit [id number] - [id number] Implanted:Qty: 1 on 11/06/2023 by Torey Montes MD at [facility] Left: Ankle [employer] [id number] 05/16/2026 [id number] / / [id number] Orthohelix Maxtorque 7mm 70mm Cannulated Self Drill Foot Ankle Petite Thread Njd-742-12-070p - [id number] Implanted:Qty: 1 on 11/06/2023 by Torey Montes MD at [facility] Left: Ankle Orthohelix MSD-010- 70-070P / / Orthohelix Maxtorque 5.5mm 40mm Cannulated Self Drill Foot Ankle Short Ysl-391-81-040s - [id number] Implanted:Qty: 1 on 11/06/2023 by Torey Montes MD at [facility] Left: Ankle Orthohelix MSD-010- 55-040S / / Orthohelix Maxtorque 5.5mm 45mm Cannulated Self Drill Foot Ankle Short Wej-644-25-045s - [id number] Implanted:Qty: 1 on 11/06/2023 by Torey Montes MD at [facility] Left: Ankle Orthohelix MSD-010- 55-045S / / Orthohelix 3.5mm 22mm Lock Fix Angle Foot Ankle Screw Bone Nonsterile Lln-215-14-22 - [id number] Implanted:Qty: 1 on 11/06/2023 by Torey Montes MD at [facility] Left: Ankle Orthohelix CAMP HOUSEKEEPER-021- 35-22 / / Orthohelix Maxlock Extreme 3.5mm 24mm Lock Fix Angle Foot Ankle Screw Bone Latex Free Vsy-149-12-24 - [id number] Implanted:Qty: 1 on 11/06/2023 by Torey Montes MD at [facility] Left: Ankle Orthohelix CAMP HOUSEKEEPER-021- 35-24 / / Orthohelix Maxlock Extreme 3.5mm 32.5mm Foot Ankle Screw Bone Nonsterile Jza-354-51-325 - [id number] Implanted:Qty: 2 on 11/06/2023 by Torey Montes MD at [facility] Left: Ankle Orthohelix CAMP HOUSEKEEPER-011- 35-325 / / Explanted Type Area Credit Administration Manager Device Identifier Shelf Expiration Date Model / Serial / Lot [employer]aire [employer] Steinmann 3/32mm 9in Trocar Point Pin Fixation Stainless Steel 1624-509ns - [id number] Explanted:Qty: 6 on 11/06/2023 at [facility] Left: Ankle [employer] [id number] / / Procedures Procedure Name Priority Date/Time Associated Diagnosis Comments XR FOOT LEFT 3 OR MORE VIEWS Schedule Routine, Read Routine (OP Routine) 04/28/2024 9:21 AM CONCESSION STAND ATTENDANT Pain in left foot XR ANKLE LEFT 3 OR MORE VIEWS Schedule Routine, Read Routine (OP Routine) 04/28/2024 9:21 AM CONCESSION STAND ATTENDANT Left ankle pain, unspecified chronicity from Last 3 Months Results * XR Foot Left 3+ View (04/28/2024 9:21 AM CONCESSION STAND ATTENDANT) Anatomical Region Laterality Modality Lower Extremities, Foot Left Computed Radiography 04/28/2024 9:28 AM CONCESSION STAND ATTENDANT Impressions 04/28/2024 9:28 AM CONCESSION STAND ATTENDANT 1. Healing internally fixated triple hindfoot arthrodesis. Electronically signed by: Saud Knox D.O. Narrative 04/28/2024 9:28 AM CONCESSION STAND ATTENDANT EXAMINATION: XR ANKLE LEFT 3 OR MORE [...] tissue swelling around the ankle. Procedure Note Suad Knox DO - 04/28/2024 EXAMINATION: XR ANKLE LEFT [...] 3 or More Views (04/28/2024 9:21 AM CONCESSION STAND ATTENDANT) Anatomical Region Laterality Modality Lower Extremities, Ankle Left Compute d Radiography 04/28/2024 9:28 AM CONCESSION STAND ATTENDANT Impressions 04/28/2024 9:28 AM CONCESSION STAND ATTENDANT 1. Healing internally fixated triple hindfoot arthrodesis. Electronically signed by: Saud Knox D.O. Narrative 04/28/2024 9:28 AM CONCESSION STAND ATTENDANT EXAMINATION: XR ANKLE LEFT 3 OR MORE [...] swelling around the ankle. Procedure Note Saud Knox DO - 04/28/2024 EXAMINATION: XR ANKLE LEFT [...] MD IMG XR PROCEDURES Ghislaine l Result from Last 3 Months Insurance [facility] [id number] Advance Directives For more information, please contact: [phone] * Full Code (Latest Code Status on File) Date Activated Date Inactivated Comments 11/06/2023 8:33 PM 11/07/2023 7:36 PM Care Teams Orthotist/Prosthetist Relationship Specialty Start Date End Date Braulio Luu MD [address] [place] [id number] PCP - General 11/29/10 Dagmar Lopes DPM [address] [place] [phone] Consulting Physician Foot and Ankle Surg 02/01/23
--- OUTSIDE RECORDS SUMMARY | 2024-07-23 10:50 | XMS_ITS | Referral Summary ---
Author Organization [address] [facility] [place] Address [address] [place] [address] Care Team Providers Care Molasses Preparer Name Role Phone Braulio Luu MD Primary Care Prov ider Dagmar Lopes DPM Unavailable [phone] Encounters Date Type Department Care Team Description 04/28/2024 9:11 AM MARINE EQUIPMENT TEST ENGINEER - 04/28/2024 11:59 PM MARINE EQUIPMENT TEST ENGINEER Hospital Encounter [facility] [address] [place] [address] [phone] Left ankle pain, unspecified chronicity Discharge Disposition: Discharge to home or self care 04/28/2024 9:10 AM MARINE EQUIPMENT TEST ENGINEER - 04/28/2024 11:59 PM MARINE EQUIPMENT TEST ENGINEER Hospital Encounter [facility] [address] [place] [address] Pain in left foot Discharge Disposition: Discharge to home or self care 04/28/2024 9:00 AM MARINE EQUIPMENT TEST ENGINEER Office Visit [facility] Orthopaedic Surgery [address] [place] [address] 2nd [address] [place] [address] Torey Montes MD Pain in left foot (Primary Dx); Left ankle pain, unspecified chronicity from Last 3 Months Allergies Active Allergy [...] on file Legal Sex Male 1:59 AM MARINE EQUIPMENT TEST ENGINEER Gender Identity Not on file Sexual [...] on file Medical Devices Implanted Type Area Tram Inspector Device Identifier Shelf Expiration Date Model / Serial / Lot Musculoskeletal Transplant [id number] 4-30mm Allograft Frozen [id number] Wedge Graft Bone [id number] - [id number] - [id number] Implanted:Qty: 1 on 11/06/2023 by Torey Montes MD at [facility] Bone Left: Ankle Musculoskeletal Transplant [id number] 11/04/2027 [id number] / [id number] / Orthohelix Maxlock Extreme Foot Ankle Y Plate Bone Nonsterile Latex Free Ice Rink Attendant-002-Y - [id number] Implanted:Qty: 1 on 11/06/2023 by Torey Montes MD at [facility] Plate Left: Ankle Orthohelix CLINICAL NURSING MANAGER-002- Y / / [place] [employer] Easyfuse Staple 20 X 20 Nitinol 2-Leg [id number] - [id number] Implanted:Qty: 1 on 11/06/2023 by Torey Montes MD at [facility] Staple Left: Ankle K[employer] [id number] 05/11/2031 [id number] / / [id number] Description:Bosler EasyFuse Dynamic Compression System 2-Leg Staple W: 20mm L: 20mm Digital Luxury Technology Inc 876p-0400 Mini Ignite Power Mix Injectable Graft 4ml Synthetic Tissue - [id number] - [id number] Implanted:Qty: 1 on 11/06/2023 by Torey Montes MD at [facility] Left: Ankle Digital [employer] Inc [id number] 02/01/2028 [id number] / [id number] / [id number] Microaire Surgical Instruments Jennifermann 3/32mm 9in Trocar Point Pin Fixation Stainless Steel 1624-509ns - [id number] Implanted:Qty: 1 on 11/06/2023 by Torey Montes MD at [facility] Left: Ankle Microaire Surgical Instruments 1624-509 NS / / [place] [employer] Inc 876p-0400 Mini Ignite Power Mix Injectable Graft 4ml Synthetic Tissue - [id number] - [id number] Implanted:Qty: 1 on 11/06/2023 by Torey Montes MD at [facility] Left: Ankle Digital Lux[employer] Inc [id number] 02/06/2028 [id number] / [id number] / Digital Luxury Technology Inc Graft Bone Augment 3cc Allograft Injectable Kit [id number] - [id number] Implanted:Qty: 1 on 11/06/2023 by Torey Montes MD at [facility] Left: Ankle [employer] [id number] 05/16/2026 [id number] / / [id number] Orthohelix Maxtorque 7mm 70mm Cannulated Self Drill Foot Ankle Petite Thread Zgu-773-17-070p - [id number] Implanted:Qty: 1 on 11/06/2023 by Torey oMntes MD at [facility] Left: Ankle Orthohelix MSD-010- 70-070P / / Orthohelix Maxtorque 5.5mm 40mm Cannulated Self Drill Foot Ankle Short Eue-546-16-040s - [id number] Implanted:Qty: 1 on 11/06/2023 by Torey Montes MD at [facility] Left: Ankle Orthohelix MSD-010- 55-040S / / Orthohelix Maxtorque 5.5mm 45mm Cannulated Self Drill Foot Ankle Short Laq-543-62-045s - [id number] Implanted:Qty: 1 on 11/06/2023 by Torey Montes MD at [facility] Left: Ankle Orthohelix MSD-010- 55-045S / / Orthohelix 3.5mm 22mm Lock Fix Angle Foot Ankle Screw Bone Nonsterile Pnl-616-41-22 - [id number] Implanted:Qty: 1 on 11/06/2023 by Torey Montes MD at [facility] Left: Ankle Orthohelix CLINICAL NURSING MANAGER-021- 35-22 / / Orthohelix Maxlock Extreme 3.5mm 24mm Lock Fix Angle Foot Ankle Screw Bone Latex Free Jzx-605-47-24 - [id number] Implanted:Qty: 1 on 11/06/2023 by Torey Montes MD at [facility] Left: Ankle Orthohelix CLINICAL NURSING MANAGER-021- 35-24 / / Orthohelix Maxlock Extreme 3.5mm 32.5mm Foot Ankle Screw Bone Nonsterile Wxg-695-76-325 - [id number] Implanted:Qty: 2 on 11/06/2023 by Torey Montes MD at [facility] Left: Ankle Orthohelix CLINICAL NURSING MANAGER-011- 35-325 / / Explanted Type Area Tram Inspector Device Identifier Shelf Expiration Date Model / Serial / Lot Microaire Surgical Instruments Steinmann 3/32mm 9in Trocar Point Pin Fixation Stainless Steel 1624-384ns - [id number] Explanted:Qty: 6 on 11/06/2023 at [facility] Left: Ankle [employer]aire [employer] Instruments 1620-509NS / / Procedures Procedure Name Priority Date/Time Associated Diagnosis Comments XR FOOT LEFT 3 OR MORE VIEWS Schedule Routine, Read Routine (OP Routine) 04/28/2024 9:21 AM MARINE EQUIPMENT TEST ENGINEER Pain in left foot XR ANKLE LEFT 3 OR MORE VIEWS Schedule Routine, Read Routine (OP Routine) 04/28/2024 9:21 AM MARINE EQUIPMENT TEST ENGINEER Left ankle pain, unspecified chronicity from Last 3 Months Results * XR Foot Left 3+ View (04/28/2024 9:21 AM MARINE EQUIPMENT TEST ENGINEER) Anatomical Region Laterality Modality Lower Extremities, Foot Left Computed Radiography 04/28/2024 9:28 AM MARINE EQUIPMENT TEST ENGINEER Impressions 04/28/2024 9:28 AM MARINE EQUIPMENT TEST ENGINEER 1. Healing internally fixated triple hindfoot arthrodesis. Electronically signed by: Saud Knox D.O. Narrative 04/28/2024 9:28 AM MARINE EQUIPMENT TEST ENGINEER EXAMINATION: XR ANKLE LEFT 3 OR [...] 3 or More Views (04/28/2024 9:21 AM MARINE EQUIPMENT TEST ENGINEER) Anatomical Region Laterality Modality Lower Extremities, Ankle Left Compute d Radiography 04/28/2024 9:28 AM MARINE EQUIPMENT TEST ENGINEER Impressions 04/28/2024 9:28 AM MARINE EQUIPMENT TEST ENGINEER 1. Healing internally fixated triple hindfoot arthrodesis. Electronically signed by: Saud Knox D.O. Narrative 04/28/2024 9:28 AM MARINE EQUIPMENT TEST ENGINEER EXAMINATION: XR ANKLE LEFT 3 OR [...] l Result from Last 3 Months Insurance [employer] [facility] [id number] [facility] [id number] Advance Directives For more information, please contact: [phone] * Full Code (Latest Code Status on File) Date Activated Date Inactivated Comments 11/06/2023 8:33 PM 11/07/2023 7:36 PM Care Teams Molasses Preparer Relationship Specialty Start Date End Date Braulio Luu MD [address] [place] [address] PCP - General 11/29/10 Dagmar Lopes, ISELA [address] [place] [address] Consulting Physician Foot and Ankle Surg 02/01/23
--- OUTSIDE RECORDS SUMMARY | 2024-07-23 10:50 | XMS_ITS | Continuity of Care Document ---
Author Organization [facility] Address [address] [facility] [address] [place] [address] Phone Care Team Providers Care Food Service Tray Attendant Name Role Phone Eduin King Unavailable Unavailable Procedures Procedure Date Eye Exam Established Pt Ophthalmoscopy, Subsequent Eye Exam Established Pt Ophthalmoscopy, Subsequent Office Consultation Ophthalmoscopy Office/outpatient Visit, Est Eye Exam, New Patient Advance Directives Directive Yes / No Effective Date File Name No Information Encounters Encounter Description Practice Location Reason(s) For Visit Diagnoses Date Provider Providers Copied on Encounter [facility], [address], [place], [place], [id number], [place] tel:[phone] [facility] No Information [address] [place], [address], [place]. tel:[phone] Referring Provider: Eduin Walton, [address] [place], [place], [facility]. tel:[phone] [facility], [address], [place], [place], [id number], [place] tel:[phone] [facility] No Information [address] [place], [address], [place]. tel:[phone] Referring Provider: Eduni Walton, [address] [place], [place], [facility]. tel:[phone] Office Consultation [facility], [address], [place], [place], [id number], [place] tel:[phone] [facility] No Information [place]-0 8[address] [facility], [place], [place], [facility], [place]. tel:[phone] Referring Provider: Ar zuniga, [address] [place] [address] [address], [place], [place], [facility]. tel:[phone] Office/outpati ent Visit, Est [facility], [address], [place], [place], [id number], tel:[phone] [facility] No Information Shel[place]-0 5[address] [place] [address], [place], [place], [facility], [place]. tel:[phone] [facility], [address], [place], [place], [address], [place] tel:[phone] [facility] No Information Shelton-0 4-[address] Suyapa Foss. [address] [place] [address] [address], [address], [place], [place], [facility], [place]. tel:[phone] Family History Family Member Type Diagnosis Age At Onset No Information Payers Payer name Insurance type Covered green party ID Authoriza tion(s) No Information Social History [...]
--- OUTSIDE RECORDS SUMMARY | 2024-07-23 10:50 | XMS_ITS | Clinical Summary ---
Author Organization [facility] [employer] Address [address] [address] Care Team Providers Care Glass Engraver Name Role Phone Braulio Luu MD Primary Care Provider + Source Comments [facility],non-owned Affiliates and Associated Physician Practices is amultiple site organization consisting of ambulatory clinics and hospital sitesin [place], [place], [place] and [place]. This disclosure is being madepursuant to the Care Everywhere program and may not contain all information available regarding this patient. Last updated 17.[facility] [employer] Allergies Active Allergy Reactions Criticality Noted Date Comments Levaquin Skin Reactions Medium 03/02/2014 Levofloxacin Urticaria Medium 03/02/2014 Hmg-Coa-R Inhibitors Other 04/10/2022 Joint pain, swelling Medications * Be aware that medications may not be up to date on this document. Alwaysverify current medications with the patient. desvenlafaxine SR 24hr (PRISTIQ) 50 MG tablet Take 1 (one) tablet by mouth DAILY 7 Active ALPRAZolam (XANAX) 1 MG tablet Take 1 (one) tablet by mouth once daily 4 Active losartan-hydroCH LOROthiazide (HYZAAR) 100-25 MG tablet Take 1 (one) tablet by mouth once daily 8 Active ketoconazole (NIZORAL) 2 % creamIndications :Tinea pedis of both feet Apply to affected area on feet and between toe webbings twice daily until at least 2 weeks after complete clearance. 30 days supply. 60 g 5 9 Active Additional Information Patient not taking.Reported on 03/17/2019 atorvastatin (LIPITOR) 40 MG tablet 9 Active esomeprazole (NEXIUM) 40 MG capsule 9 Active candesartan (ATACAND) 32 MG tablet 9 Active fluocinonide (LIDEX) 0.05 % creamIndications :Rash and nonspecific skin eruption APPLY TO FOREARMS TWICE DAILY 30 DAYS SUPPLY. 60 g 0 Active Additional Information Patient not taking.Reported on 04/10/2022 ezetimibe (ZETIA) 10 MG tablet Take 1 (one) tablet by mouth once daily 0 Active Active Problems Problem Noted Date Diagnosed Date Multiple benign melanocytic nevi of upper and lower extremities and trunk 03/22/2020 Assessment & Plan (03/22/2020 10:48 AM LIEUTENANT COLONEL): - Benign, reassurance - Counseled on importance of daily sun protection (Broad spectrum, SPF >30), monthly self skin exams - Reviewed ABCDEs of melanoma - Sun screen hand out provided Seborrheic keratosis 03/22/2020 Assessment & Plan (03/22/2020 10:49 AM LIEUTENANT COLONEL): - Benign, reassurance 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, but report not in system Assessment & Plan (03/22/2020 10:47 AM LIEUTENANT COLONEL): - No evidence of recurrence, patient reassured - Nicole reviewed - Reinforced importance of yearly eye and dental exams. - We discussed the role of sun protection with a UVA and UVB sunscreen, appropriate application, and the need for daily use. Immunizations Immunization Administration Dates Next Due INFLUENZA VACCINE 12/26/2020 [...] at Not on file Legal Sex Male 5:27 PM LIEUTENANT COLONEL Gender Identity Not on file Sexual Orientation Not on file Last Filed Vital Signs Vital Sign Reading Time Taken Comments Blood Pressure 126/86 03/02/2014 3:46 PM LIEUTENANT COLONEL Pulse 96 03/02/2014 3:46 PM LIEUTENANT COLONEL Temperature - - Respiratory Rate - - Oxygen Saturation 96% 03/02/2014 3:46 PM LIEUTENANT COLONEL Inhaled Oxygen Concentration - - Weight 136.5 kg (301 lb) 03/02/2014 2:41 PM LIEUTENANT COLONEL Height 182.9 cm (6') 03/02/2014 2:41 PM LIEUTENANT COLONEL Body Mass Index 40.82 03/02/2014 2:41 PM LIEUTENANT COLONEL Plan of Treatment Upcoming Encounters Date Type Department Care Team (Late st Contact Info) Description 04/27/2025 8:30 AM LIEUTENANT COLONEL Office Visit [facility] - General Dermatology [address], [address] [place] [address] Massiel Deleon MD [address] [place] [address] Health Maintenance Due Date Last [...] VACCINE (1 - 2023-2 5 season) 2023 DEPRESSION SCREENING 03/19/2024 INFLUENZA VACCINE (Season Ended) 2024 12/27/19 21 HEPATITIS C SCREENING Completed 08/27/2017 HEPATITIS B [...] Procedure Name Priority Date/Time Associated Diagnosis Comments HEPATITIS C ANTIBODY Routine 08/27/2017 11:06 AM CDT Rash and nonspecific skin eruption from Last 3 Months or Most Recently Relevant to Health Maintenance Results * HEPATITIS C ANTIBODY (08/27/2017 11:06 AM CDT) Hepatitis C Antibody <0.1 0.0 - 0.9 s/co ratio [facility] INSURANCE BILL Comment: Negative: < 0.8 Indeterminate: 0.8 - 0.9 Positive: > 0.9 . The CDC recommends that a positive HCV antibody result be followed up with a HCV Nucleic Acid Amplification test (267965). FASTING Blood BLOOD SPECIMEN / Unknown 08/27/2017 11:06 AM CDT 08/27/2017 Narrative Resulting Agency Comment [facility] [address] [facility] [id number] Massiel Deleon MD LAB - CHEMISTRY ORDERABLES F inal Result [facility] INSURANCE BILL [address] [place] [address] from Last 3 Months or Most Recently Relevant to Health Maintenance Insurance [employer] Member Subscriber Plan / Payer (Ef fective 2020-Present) Name:Kae Sims Member ID:[id number] Relation to Subscriber:Self Name:KAE SIMS Subscriber ID:[id number] Payer ID:Not on file Type:O Address: [address] [employer] SELF PAY NO INSURANCE Member Subscriber Plan / Payer (Ef fective for All Dates) Name:Kae Sims Member ID:Not on file Relation to Subscriber:Not on file Name:KAE SIMS Subscriber ID:Not on file (Home) Address: [address] [place] [address] Payer ID:Not on file Group ID:Not on file Type:Self Pay Address: [place], [place] Care Teams Glass Engraver Relationship Specialty Start Date End Date Braulio Luu MD [address] [facility] [address] [place] [address] PCP - General 01/20/08
== END 2024-07-23 10:08 | disposition home or self-care (01) ==
LOC: ANHSURGERY 10:09
PROVIDERS: PCP Family Medicine Adolescent Medicine; Visit Provider Surgery
DX: K43.6 Other and unspecified ventral hernia with obstruction, without gangrene (principal); K42.0 Umbilical hernia with obstruction, without gangrene
CPT/HCPCS: 36415; 80048; 85025; 86850; 86900; 86901; 93005

== ENCOUNTER 2024-07-29 01:06 | Day surgery (SDC) | payer OTHER, SELFPAY ==
[2024-07-22 08:07] VITALS: BMI 42.7
--- NOTE | 2024-07-22 08:14 | PC.NURSE ---
Report to the Outpatient Waiting Room, entrance under the green pavilion located off [facility], at time _0830_ on date _[id number]_. Planned Procedure Time: _1030_. Time changes happen often and if your time is changed the preop area will call you the afternoon before. - You and your visitor will be asked to self-screen and do not enter if you have any COVID symptoms. Please call surgeon if you need to reschedule. - A mask is optional within the hospital at this time. Patients may have clear liquids (water, carbonated beverages, clear teas, apple juice) until 3 hours prior to surgery with a maximum of 20 ounces. - No food from midnight until time of surgery and no smoking, or chewing tobacco (or any form of nicotine). No chewing gum, candy or mints. Take only the following medications with a SIP of water on the morning of surgery: __Desvenlafaxine___ DO NOT STOP ANY OF YOUR OTHER PRESCRIPTION MEDICATIONS PRIOR TO SURGERY EXCEPT THE FOLLOWING Hold all vitamins and supplements for 3 days per anesthesiologist. Medications to discontinue per physician Please check with Dr Rivera's office if need to hold Meloxicam. Date to take last dose Please no make-up, nail macedonian, hairspray, perfume, deodorant, or body powder the day of surgery. No jewelry (including any body piercings) or valuables the day of surgery, leave them at home. Please take a shower or bath the night before, or the morning of, surgery with an antibacterial soap. Wear comfortable, loose fitting clothing. - Jewelry must be removed prior to entering the operating room. Rings and piercings that are not removed may be cut off. - The hospital will not accept responsibility for valuables. - Please leave all valuables, including medications, at home the day of surgery. If you are going home after surgery, a licensed coal tram driver must drive you home. - NO public transportation without another adult if you receive anesthesia. - We recommend that an adult stay with you for 24 hours following discharge. - We also recommend that you do not drive, make important decision, drink alcoholic beverages, or take any drugs that were not prescribed by your health care provider for at least 24 hours after your discharge time. Follow any additional instructions given to you from your surgeon. Telephone instructions given to __Santino and Lissett__and asked if any additional questions and then verbalized understanding. Patient advised to call surgeon office or pre surgery nurse liaison [phone] if any additional questions.
[2024-07-29] VITALS (12 sets, daily range): BP systolic 124–155; BP diastolic 82–99; PULSE 68–94; RESP 12–18; TEMP 36.3–36.9; O2SAT 93–99
--- OUTSIDE RECORDS SUMMARY | 2024-07-29 01:09 | XMS_ITS | Clinical Summary ---
Author Organization [address] Address [address] [place] [address] Care Team Providers Care Ad Operations Specialist Name Role Phone Braulio Luu MD Primary Care Prov ider Dagmar Lopes DPM Unavailable [phone] Allergies Active Allergy Reactions Criticality Noted Date [...] Plan: - Benign, reassurance Lichen planus 11/26/2017 Surgical History Surgery Date Site/Laterality Comments VASECTOMY 03/19/1995 - 03/18/1996 KIDNEY STONE SURGERY 03/19/2020 - 03/18/2021 x2 URETHRAL DILATION and MELANOMA RESECTION 03/19/2013 - 03/18/2014 on [...] on file Legal Sex Male 1:59 AM STAFFING CONSULTANT Gender Identity Not on file Sexual Orientation [...] Vaccine (1 of 2) 2010 Covid-19 Vaccine ( - 2023-2 5 season) 2023 12/21/2020, 06/18/2020, 05/25/2020 Influenza Vaccine (Season Ended) 2024 12/26/2020 Pneumococcal vaccine <65 Aged Out No longer eligible based on patient's age to complete this topic Medical Devices Implanted Type Area Tubing Machine Tender Device Identifier Shelf Expiration Date Model / Serial / Lot Musculoskeletal Transplant [id number] 4-30mm Allograft Frozen [id number] Wedge Graft Bone [id number] - [id number] - [id number] Implanted:Qty: 1 on 11/06/2023 by Torey Montes MD at [facility] Bone Left: Ankle Musculoskeletal Transplant [id number] 11/04/2027 [id number] / [id number] / Orthohelix Maxlock Extreme Foot Ankle Y Plate Bone Nonsterile Latex Free Voip Engineer-002-Y - [id number] Implanted:Qty: 1 on 11/06/2023 by Torey Montes MD at [facility] Plate Left: Ankle Orthohelix GROUP SALES REPRESENTATIVE-002- Y / / simpleFLOORS [employer] Inc Easyfuse Staple 20 X 20 Nitinol 2-Leg [id number] - [id number] Implanted:Qty: 1 on 11/06/2023 by Torey Montes MD at [facility] Staple Left: Ankle [employer] Inc [id number] 05/11/2031 [id number] / / [id number] Description:Edgard EasyFuse Dynamic Compression System 2-Leg Staple W: 20mm L: 20mm simpleFLOORS Technology Inc 876p-0400 Mini Ignite Power Mix Injectable Graft 4ml Synthetic Tissue - [id number] - [id number] Implanted:Qty: 1 on 11/06/2023 by Torey Montes MD at [facility] Left: Ankle [employer] [id number] 02/01/2028 [id number] / [id number] / [id number] Microaire Surgical Instruments Steinmann 3/32mm 9in Trocar Point Pin Fixation Stainless Steel 1624-509ns - [id number] Implanted:Qty: 1 on 11/06/2023 by Torey Montes MD at [facility] Left: Ankle [employer] 1624-509 NS / / [employer] 876p-0400 Mini Ignite Power Mix Injectable Graft 4ml Synthetic Tissue - [id number] - [id number] Implanted:Qty: 1 on 11/06/2023 by Torey Montes MD at [facility] Left: Ankle [employer] [id number] 02/06/2028 [id number] / [id number] / [employer] Graft Bone Augment 3cc Allograft Injectable Kit [id number] - [id number] Implanted:Qty: 1 on 11/06/2023 by Torey Montes MD at [facility] Left: Ankle [employer] Inc [id number] 05/16/2026 [id number] / / [id number] Orthohelix Maxtorque 7mm 70mm Cannulated Self Drill Foot Ankle Petite Thread Jtt-957-50-070p - [id number] Implanted:Qty: 1 on 11/06/2023 by Torey Montes MD at [facility] Left: Ankle Orthohelix MSD-010- 70-070P / / Orthohelix Maxtorque 5.5mm 40mm Cannulated Self Drill Foot Ankle Short Lje-853-07-040s - [id number] Implanted:Qty: 1 on 11/06/2023 by Torey Montes MD at [facility] Left: Ankle Orthohelix MSD-010- 55-040S / / Orthohelix Maxtorque 5.5mm 45mm Cannulated Self Drill Foot Ankle Short Frr-494-53-045s - [id number] Implanted:Qty: 1 on 11/06/2023 by Torey Montes MD at [facility] Left: Ankle Orthohelix MSD-010- 55-045S / / Orthohelix 3.5mm 22mm Lock Fix Angle Foot Ankle Screw Bone Nonsterile Xfd-345-97-22 - [id number] Implanted:Qty: 1 on 11/06/2023 by Torey Montes MD at [facility] Left: Ankle Orthohelix GROUP SALES REPRESENTATIVE-021- 35-22 / / Orthohelix Maxlock Extreme 3.5mm 24mm Lock Fix Angle Foot Ankle Screw Bone Latex Free Dpo-125-24-24 - [id number] Implanted:Qty: 1 on 11/06/2023 by Torey Montes MD at [facility] Left: Ankle Orthohelix GROUP SALES REPRESENTATIVE-021- 35-24 / / Orthohelix Maxlock Extreme 3.5mm 32.5mm Foot Ankle Screw Bone Nonsterile Jdz-308-77-325 - [id number] Implanted:Qty: 2 on 11/06/2023 by Torey Montes MD at [facility] Left: Ankle Orthohelix GROUP SALES REPRESENTATIVE-011- 35-325 / / Explanted Type Area Tubing Machine Tender Device Identifier Shelf Expiration Date Model / Serial / Lot Microaire Surgical Instruments Jennifermann 3/32mm 9in Trocar Point Pin Fixation Stainless Steel 1624-509ns - [id number] Explanted:Qty: 6 on 11/06/2023 at [facility] Left: Ankle [employer] 1624-509NS / / Insurance [facility] Member Subscriber Plan / Payer (Ef fective 2019-Present) Name:Santino Jordan Vanda Member ID:[id number] Relation to Subscriber:Self Name:Santino Jordan Subscriber ID:[id number] Payer ID:[id number] Type:[employer] HMO/PPO Address: [address] [employer] [facility] [address] Advance Directives For more information, please contact: [phone] * Full Code (Latest Code Status on File) Date Activated Date Inactivated Comments 11/06/2023 8:33 PM 11/07/2023 7:36 PM Care Teams Ad Operations Specialist Relationship Specialty Start Date End Date Braulio Luu MD [address] [place] [address] PCP - General 11/29/10 Dagmar Lopes DPM [address] [place] [address] Consulting Physician Foot and Ankle Surg 02/01/23
--- OUTSIDE RECORDS SUMMARY | 2024-07-29 01:09 | XMS_ITS | Clinical Summary ---
Author Organization [facility] Address [address] [place] [address] Care Team Providers Care Dermatology Technician Name Role Phone Braulio Luu MD Primary Care Provider + Source Comments [facility],non-owned Affiliates and Associated Physician Practices is amultiple site organization consisting of ambulatory clinics and hospital sitesin [place], [place], [place]. This disclosure is being madepursuant to the Care Everywhere program and may not contain all information available regarding this patient. 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 Assessment & Plan (03/22/2020 10:49 AM HOME CARE PROVIDER): - Benign, reassurance Lichen planus 11/26/2017 Personal history of malignant melanoma of skin 0 12/06/2015 Overview (03/22/2020): - 02/2014 MM (BD 0.5mm) L posterior shoulder () - L supraclavicular LN, however also reported injury to clavicle in that area - Had OSH US 05/31 [facility] that was negative - Had repeat US at [facility], but report not in system Assessment & Plan (03/22/2020 10:47 AM HOME CARE PROVIDER): - No evidence of recurrence, patient reassured [...] on file Legal Sex Male 5:27 PM HOME CARE PROVIDER Gender Identity Not on file Sexual Orientation Not on file Last Filed Vital Signs Vital Sign Reading Time Taken Comments Blood Pressure 126/86 03/02/2014 3:46 PM HOME CARE PROVIDER Pulse 96 03/02/2014 3:46 PM HOME CARE PROVIDER Temperature - - Respiratory Rate - - Oxygen Saturation 96% 03/02/2014 3:46 PM HOME CARE PROVIDER Inhaled Oxygen Concentration - - Weight 136.5 kg (301 lb) 03/02/2014 2:41 PM HOME CARE PROVIDER Height 182.9 cm (6') 03/02/2014 2:41 PM HOME CARE PROVIDER Body Mass Index 40.82 03/02/2014 2:41 PM HOME CARE PROVIDER Plan of Treatment Upcoming Encounters Date Type Department Care Team (Late st Contact Info) Description 04/27/2025 8:30 AM HOME CARE PROVIDER Office Visit [facility] - General Dermatology [address], [address] [place] [address] Massiel Deleon MD [address] [place] [address] Health Maintenance Due Date Last [...] with a HCV Nucleic Acid Amplification test ([id number]). FASTING Blood BLOOD SPECIMEN / Unknown 08/27/2017 11:06 AM CDT 08/27/2017 Narrative Resulting Agency Comment [facility] [address] [facility] [id number] Massiel Deleon MD LAB - CHEMISTRY ORDERABLES F inal Result [facility] INSURANCE BILL [address] [place] [address] from Last 3 Months or Most Recently Relevant to Health Maintenance Insurance [employer] Member Subscriber Plan / Payer (Ef fective 2020-Present) Name:Kae Sims Member ID:[id number] Relation to Subscriber:Self Name:KAE SIMS Subscriber ID:[id number] Payer ID:Not on file Type:O Address: [address] [facility] Address: [place] [address] SELF PAY NO INSURANCE Member Subscriber Plan / Payer (Ef fective for All Dates) Name:Kae Sims Member ID:Not on file Relation to Subscriber:Not on file Name:KAE SIMS Subscriber ID:Not on file (Home) Address: [address] [place] [id number] Payer ID:Not on file Group ID:Not on file Type:Self Pay Address: [place], [place] Care Teams Dermatology Technician Relationship Specialty Start Date End Date Braulio Luu MD [address] [place] [address] PCP - General 01/20/08
--- OUTSIDE RECORDS SUMMARY | 2024-07-29 01:09 | XMS_ITS | Continuity of Care Document ---
Author Organization [facility] Address [address] [place] [address] Phone Care Team Providers Care Ream Cutter Name Role Phone Eduin King Unavailable Unavailable Procedures Procedure Date Eye Exam Established Pt Ophthalmoscopy, Subsequent Eye Exam Established Pt Ophthalmoscopy, Subsequent Office Consultation Ophthalmoscopy Office/outpatient Visit, Est Eye Exam, New Patient Advance Directives Directive Yes / No Effective Date File Name No Information Encounters Encounter Description Practice Location Reason(s) For Visit Diagnoses Date Provider Providers Copied on Encounter [facility], [address], [place], [place], [id number], [place] tel:[phone] [facility] No Information [address] [place], [address], [place]. tel:[phone] Referring Provider: Eduin Walton, [address] [place], [address]. tel:[phone] [facility], [address], [place], [place], [id number], [place] tel:[phone] [facility] No Information [address] [place], [address], [place]. tel:[phone] Referring Provider: Eduin Walton, [address] [place], [place], [facility]. tel:[phone] Office Consultation [facility] Eye [facility] [place], [address], [place], [place], [id number], [place] tel:[phone] [facility] No Information [place]-[address] 8[address] [facility], [place], [place], [facility], [place]. tel:[phone] Referring Provider: Ar zuniga, [address] [place] [address] [address], [place], [place], [facility]. tel:[phone] Office/outpati ent Visit, Est [facility], [address], [place], [place], [id number], tel:[phone] [facility] No Information [place]-0 [address] [place] [address], [place], [place], [facility], [place]. tel:[phone] [facility], [address], [place], [place], [address], [place] tel:[phone] [facility] No Information [place]-0 4[address] Su[address] [place] [address] [address], [address], [place], [place], [facility], [place]. tel:[phone] Family History Family Member Type Diagnosis Age At Onset No Information Payers Payer name Insurance type Covered democrat ID Authoriza tion(s) No Information Social History [...]
--- OUTSIDE RECORDS SUMMARY | 2024-07-29 01:09 | XMS_ITS | Referral Summary ---
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 Gender Identity Not on file Sexual Orientation [...] on file Medical Devices Implanted Type Area Name Plate Stamping Machine Operator Device Identifier Shelf Expiration Date Model / Serial / Lot Musculoskeletal Transplant [id number] 4-30mm Allograft Frozen [id number] Wedge Graft Bone 140270 - [id number] - [id number] Implanted:Qty: 1 on 11/06/2023 by Torey Montes MD at [facility] Bone Left: Ankle Musculoskeletal Transplant [id number] 11/04/2027 [id number] / [id number] / Orthohelix Maxlock Extreme Foot Ankle Y Plate Bone Nonsterile Latex Free Web Interface Developer-002-Y - [id number] Implanted:Qty: 1 on 11/06/2023 by Torey Montes MD at [facility] Plate Left: Ankle Orthohelix TRANSCRIPTIONIST-002- Y / / [employer] Easyfuse Staple 20 X 20 Nitinol 2-Leg [id number] - [id number] Implanted:Qty: 1 on 11/06/2023 by Torey Montes MD at [facility] Staple Left: Ankle [employer] Inc [id number] 05/11/2031 [id number] / / [id number] Description:Edgard EasyFuse Dynamic Compression System 2-Leg Staple W: 20mm L: 20mm Hell[employer] Inc 876p-0400 Mini Ignite Power Mix Injectable Graft 4ml Synthetic Tissue - [id number] - [id number] Implanted:Qty: 1 on 11/06/2023 by Torey Montes MD at [facility] Left: Ankle [employer] [id number] 02/01/2028 [id number] / [id number] / [id number] Microaire [employer] Instruments Steinmann 3/32mm 9in Trocar Point Pin Fixation Stainless Steel 1624-509ns - [id number] Implanted:Qty: 1 on 11/06/2023 by Torey Montes MD at [facility] Left: Ankle [employer] 1624-509 NS / / [employer] 876p-0400 Mini Ignite Power Mix Injectable Graft 4ml Synthetic Tissue - [id number] - [id number] Implanted:Qty: 1 on 11/06/2023 by Torey Montes MD at [facility] Left: Ankle [employer] [id number] 02/06/2028 [id number] / [id number] / [employer] Graft Bone Augment 3cc Allograft Injectable Kit [id number] - [id number] Implanted:Qty: 1 on 11/06/2023 by Torey Montes MD at [facility] Left: Ankle Hybrid [employer] Inc [id number] 05/16/2026 [id number] / / [id number] Orthohelix Maxtorque 7mm 70mm Cannulated Self Drill Foot Ankle Petite Thread Rxg-270-86-070p - [id number] Implanted:Qty: 1 on 11/06/2023 by Torey Montes MD at [facility] Left: Ankle Orthohelix MSD-010- 70-070P / / Orthohelix Maxtorque 5.5mm 40mm Cannulated Self Drill Foot Ankle Short Sjt-018-92-040s - [id number] Implanted:Qty: 1 on 11/06/2023 by Torey Montes MD at [facility] Left: Ankle Orthohelix MSD-010- 55-040S / / Orthohelix Maxtorque 5.5mm 45mm Cannulated Self Drill Foot Ankle Short Vdn-256-30-045s - [id number] Implanted:Qty: 1 on 11/06/2023 by Torey Montes MD at [facility] Left: Ankle Orthohelix MSD-010- 55-045S / / Orthohelix 3.5mm 22mm Lock Fix Angle Foot Ankle Screw Bone Nonsterile Byj-902-05-22 - [id number] Implanted:Qty: 1 on 11/06/2023 by Torey Montes MD at [facility] Left: Ankle Orthohelix TRANSCRIPTIONIST-021- 35-22 / / Orthohelix Maxlock Extreme 3.5mm 24mm Lock Fix Angle Foot Ankle Screw Bone Latex Free Gye-863-41-24 - [id number] Implanted:Qty: 1 on 11/06/2023 by Torey Montes MD at [facility] Left: Ankle Orthohelix TRANSCRIPTIONIST-021- 35-24 / / Orthohelix Maxlock Extreme 3.5mm 32.5mm Foot Ankle Screw Bone Nonsterile Owi-053-65-325 - [id number] Implanted:Qty: 2 on 11/06/2023 by Torey Montes MD at [facility] Left: Ankle Orthohelix TRANSCRIPTIONIST-011- 35-325 / / Explanted Type Area Name Plate Stamping Machine Operator Device Identifier Shelf Expiration Date Model / Serial / Lot [employer]aire [employer] Instruments Steinmann 3/32mm 9in Trocar Point Pin Fixation Stainless Steel 1624-509ns - [id number] Explanted:Qty: 6 on 11/06/2023 at [facility] Left: Ankle [employer] [id number] / / Insurance [facility] [id number] Advance Directives For more information, please contact: [phone] * Full Code (Latest Code Status on File) Date Activated Date Inactivated Comments 11/06/2023 8:33 PM 11/07/2023 7:36 PM Care Teams Traffic Circuit Engineer Relationship Specialty Start Date End Date Braulio Luu MD [address] [place] [address] PCP - General 11/29/10 Dagmar Lopes DPM [address] [place] [address] Consulting Physician Foot and Ankle Surg 02/01/23
[2024-07-29] MEDS: ACETAMINOPHEN 500 MG TABLET 1000 MG PO (09:21)
[2024-07-29] MEDS: KETOROLAC 15 MG/ML VIAL (*BKC) IV PUSH (09:21)
--- NOTE | 2024-07-29 10:32 | P.PNAN_ITS ---
Anes - Initial Pre Proc Eval Procedure: Operation Date: 07/29/24 10:30 Proposed Procedures p Robotic Repair Incarcerated Epigastric Hernia with Mesh, Robotic Repair Incarcerated Umbilical Hernia with Mesh - Dario Rivera MD Date/Time: 07/29/24 10:32 Surgeon: Dario Rivera MD Pre Op Diagnosis: incarcerated epigastric hernia, Patient Data Age: 64 Gender: M Height: 1.83 m Weight: 145 kg Last Vital Signs Temp 36.9 C 07/29/24 09:22 Pulse 74 07/29/24 09:22 Resp 16 07/29/24 09:22 BP 141/99 H 07/29/24 09:22 Pulse Ox 97 07/29/24 09:22 O2 Del Method Room Air 07/29/24 09:22 Allergies Allergy/AdvReac Type Severity Reaction Status Date / Time Quinolones Allergy Severe Rash Verified 07/29/24 09:20 atorvastatin Allergy Unknown Joint Pain Verified 07/29/24 09:20 Home Medications Medication Instructions Recorded Confirmed Type meloxicam 15 mg tablet 15 mg PO DAILY #90 tabs 10/07/23 07/29/24 Rx desvenlafaxine succinate 50 mg See Rx Instructions .Route 01/03/24 07/29/24 Rx tablet,extended release 24 hr .COMPLEX #90 tabs candesartan 32 mg tablet 32 mg PO DAILY #90 tabs 01/16/24 07/22/24 Rx esomeprazole magnesium 40 mg 40 mg PO BID #180 caps 03/07/24 07/22/24 Rx capsule,delayed release metoclopramide HCl 10 mg tablet 10 mg PO QHS nausea and vomiting 05/21/24 07/22/24 Rx #30 tabs tamsulosin 0.4 mg capsule 0.4 mg PO DAILY 05/21/24 07/22/24 History phentermine 37.5 mg tablet 37.5 mg PO DAILY #30 tabs 06/23/24 07/22/24 Rx Patient hx anesthesia problems: none Family hx anesthesia problems: none Results Review: All pre-operative results and documents have been reviewed as part of the pre- operative evaluation. [facility] Past Medical History Medical History Colon cancer screening Rotator cuff tear, right Massive deficiency Right distal ureteral calculus Arthritis Mixed anxiety and depressive disorder Ventral hernia Morbid (severe) obesity due to excess calories Essential (primary) hypertension Pure hypercholesterolemia, unspecified Hepatic steatosis (11/2018) Kidney stone on right side Bladder outlet obstruction Right ureteral calculus GERD (gastroesophageal reflux disease) Surgical History Surgical History History of foot surgery (10/2023) Left triple arthrodesis w/ graft H/O dilation of urethra H/O vasectomy H/O cystoscopy History of tonsillectomy Family History Family History Father Diabetes mellitus Hypertension Melanoma Heart disease Mother Hypertension Dementia Lymphedema Lymphoma Thyroid disorder Heart disease Grandparent Throat cancer Hypertension Heart disease Sibling Hypertension Social History Social History Social History: He is and has 2 children. 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 Patient is a lifelong nonsmoker. He rarely drinks. His is the durable power tax associate attorney for healthcare. Code status full code Smoking status: Never smoker Second hand tobacco smoke exposure: No Alcohol intake: current Drinks per week: 4 Alcohol use details: Occasionally Substance use: never Substance use type: does not use Do You Feel Safe in your Home?: Yes Lack of Transportation: No Lack of Food: Never True Current Housing: I Have Housing Concerned About Future Housing: No Difficulty Paying Gas/Electric Bills: No Difficulty Paying for Meds: No Currently Unemployed: No Education: Master's Degree or Higher Difficulty w/ Childcare or Family Care: No Living arrangements: with family Additional living arrangements comments: with sp Occupation/Education: retired Gender identity (if verbalized by the patient): Male Sexual Orientation (if Verbalized by the Patient): Straight or Heterosexual Spiritual care concerns: No Agree to blood products: Yes Anes - Eval Final PreProcedure Day of Procedure 07/29/24 10:32 Patient weight: morbidly obese Heart: regular rate and rhythm Lungs: clear to auscultation Airway: Mallampati scale class II Neurological: alert and oriented Last oral intake: >/= 8 hours ASA classification: III Emergent: no Anesthetic plan: proceed Anesthesia type and monitoring: general ETT and standard monitoring Results Review: All pre-operative results and documents have been reviewed as part of the pre- operative evaluation. Informed Consent: The patient's anesthetic plan and its attendant risks and benefits were discussed with the patient/family/POA. Questions were solicited and answers provided to the satisfaction of the patient/family/POA.
--- NOTE | 2024-07-29 10:41 | WPDHPUPDATE1 ---
History and Physical Update Update Date/Time: 07/29/24 10:41 History and Physical has been reviewed, including an updated exam of the patient. There are NO changes in the patient's condition. Risks, benefits, and alternatives have been discussed and questions answered. Patient agrees to proceed with procedure.
[2024-07-29] MEDS: ceFAZolin 3 GM/D5W 100 ML 100 ML IVPB (11:08)
[2024-07-29] MEDS: BUPIVACAINE/EPINEPHRINE 0.5% 30 ML VIAL 60 ML INFILTRATE (12:00)
--- NOTE | 2024-07-29 15:17 | P.OP_ITS ---
Procedure Note - Detailed Date of Procedure 07/29/24 Pre-op Diagnosis incarcerated epigastric hernia with 5 cm defect, umbilical hernia with 4 cm defect Post-op Diagnosis Same Procedure Performed Robotic laparoscopic repair incarcerated epigastric ventral hernia with 5 cm defect with mesh, robotic laparoscopic repair incarcerated umbilical hernia with 4 cm defect with mesh Surgeon Dario Rivera MD Wall Covering Installer Abimael FELIPE Anesthesia General and Local (0.5% Marcaine with epinephrine) Indications Patient has had a right-sided upper abdominal hernia for at least 2 or 3 years. It had been getting larger and in the last few months has been painful for him with activity. He was seen in the office and found to have an incarcerated epigastric ventral hernia. Defect was estimated at [address] scan. He also was noted to have on CT scan an umbilical hernia with a 4 cm defect. The umbilical hernia is also incarcerated but was unknown to the patient and barely palpable in the office. Findings As above. Epigastric incarcerated ventral hernia containing fat and also a very large fat containing hernia sac. The epigastric hernia had a 5 cm defect and was oriented transversely. The umbilical hernia had less incarcerated tissue and was 4 cm in length but oriented longitudinally. There was no bowel involvement with either hernia. The 2 hernia defects were approximately 15 cm apart from each other. Description of Procedure Patient was taken to surgery and induced into general anesthesia. The abdomen is prepped and draped. He had a bump on his left side and the table was flexed to give additional room for the robotic arms to function. Robotic trocars were placed in the usual fashion starting with a left subcostal 5 mm applied Medical optical trocar. Once this trocar was in and camera placed, we placed all the robotic trocars under direct visualization. With the trocars in good position on the left side of the abdomen, the robot was brought into the field. The camera was docked and targeted. The robotic instruments were then docked and positioned appropriately. The surgeon went to the robotic console. I started with the larger, symptomatic, epigastric hernia. There was lot of incarcerated omentum in this defect. It was gently reduced dividing some of the fibrous attachments keeping it in place until eventually it reduced easily. The remaining defect was 5 cm and was oriented transversely. I was able to grasp the hernia sac and it was massive. It had a lot of fatty tissue associated with it. I excised the hernia sac from the edges of the hernia defect. At the end of the procedure, this was sent as a specimen. I then took down the falciform ligament and fatty tissue around the edges of the hernia defect. This would allow for better closure of the defect as well as securing of the mesh to the abdominal wall rather than to properitoneal fat. Eventually we had dissected off adequate amounts of falciform ligament and properitoneal fat to go ahead with the repair. The hernia defect was closed in transverse orientation using 0 Stratafix running suture. We then introduced a 15 x [address] mesh. This was oriented in a transverse fashion and was secured to the anterior abdominal wall with the extra Stratafix suture. I then used 4 2-0 V lock suture and sutured the outer circumference of the mesh to the undersurface of the anterior abdominal wall. This suturing was done keeping some tension on the mesh to ensure that the mesh would incorporate with the abdominal wall as it healed. Additionally, eyes sutured some of the Stratafix down the center of the mesh and also sutured an additional V lock suture to further insure close approximation of the Ventralight mesh to the anterior abdominal wall. All looked good with this repair. There had been minimal bleeding. All the needles associated with the epigastric hernia repair were then removed from the abdomen. We then turned our attention to the incarcerated umbilical hernia. I started by dissecting the properitoneal fat in the midline and dissecting to the herniated properitoneal fat. I reduced herniated contents and some of the hernia sac. Care was taken not to injure the umbilical skin. Eventually I cleared all the properitoneal fat from around the hernia defect and the area where the mesh would lie. Another 0 Stratafix was introduced into the abdominal cavity. I used this to close the umbilical defect in longitudinal orientation with running 0 Stratafix. Another [address] mesh was introduced into the abdominal cavity. I secured it to the anterior abdominal wall with the remainder of the 0 Stratafix. I then used 2 0 V lock and sutured the outer edge of the mesh to the anterior abdominal wall in circumferential fashion. This went well and the mesh was in good position with an appropriate amount of tension. I again used residual Stratafix as well as residual V lock suture to secure the mesh in the midline for better incorporation. All the suture needles were removed from the umbilical hernia repair. Now both of the hernias had been repaired and repairs looked satisfactory. We had the very large hernia sac from the epigastric hernia as well as quite a bit of properitoneal fat that had been removed from the anterior abdominal wall to removed from the abdominal cavity. The properitoneal fat was removed with 2 different robotic Endo-Catch bags through the left upper quadrant port site. The robotic bag would not accommodate the large hernia sac from the epigastric hernia, we had to remove the robotic trocar and place a 10 11 laparoscopic trocar in this position. A general laparoscopic Endo catch bag was then introduced and we were able to place the epigastric hernia sac in this larger bag. The hernia sac was then removed from the abdominal cavity. A Joseph cone was placed and an 0 Vicryl suture was used to close the defect from the 10/11 trocar. We then removed the remaining instruments and camera. We undocked the robot. We evacuated CO2 and removed the trocars. All the the skin incisions were closed with running 4-0 Monocryl skin suture. The wounds were dressed with Exofin surgical adhesive. Sponge and needle counts were correct x2. Implants Ventralight ST hernia mesh, 10 x 15 cm, 2 pieces of mesh were used, 1 for each hernia repair Estimated Blood Loss -5 Drains No Packing No Pathology Yes (Epigastric hernia sac) Complications None Condition Stable Disposition PACU [facility] Billing Surgery - Charge Forward: Surgery Billing (Robotic laparoscopic repair incarcerated epigastric ventral hernia with 5 cm defect with mesh, robotic laparoscopic repair incarcerated umbilical hernia with 4 cm defect with mesh)
[2024-07-29] MEDS: LACTATED RINGERS 1,000 ML 30 ML IV CONT ×2 (15:26)
[2024-07-29] MEDS: fentaNYL CITRATE INJ (*CRX) 100 MCG/2 ML VIAL 25 MCG IV PUSH ×2 (15:52→15:55)
--- NOTE | 2024-07-29 16:23 | ADMGEN ---
This patient, Santino Jordan, was admitted to -. Patient/family oriented to hospital policies and general routines including ID bracelet, bed and alarms, visiting hours, pain management, procedures, bathroom and other care routines, personal items, smoking policy, room service/diet, and visiting hours. Information on how to activate the Rapid Response Team has been discussed. Patient/Family are encouraged to report perceived risks to care and to ask questions if they do not understand what they are told or what they should do.
[2024-07-29] MEDS: MORPHINE SULFATE (*CRX) 2 MG/ML INJ IV PUSH (17:18)
[2024-07-29] MEDS: LACTATED RINGERS 1,000 ML 100 ML IV CONT (17:19)
[2024-07-29] MEDS: ENOXAPARIN 30 MG/0.3 ML SYRINGE SUB-Q (20:15)
[2024-07-29] MEDS: METOCLOPRAMIDE HCL 10 MG TABLET PO (20:15)
[2024-07-29] MEDS: SENNA/DOCUSATE SODIUM TABLET 2 TAB PO (20:15)
[2024-07-29] MEDS: MORPHINE SULFATE (*CRX) 4 MG/ML INJ IV PUSH (20:15)
[2024-07-30 01:31] VITALS: PULSE 82; RESP 20; O2SAT 92
[2024-07-30 01:56] VITALS: BP 169/96; PULSE 76; RESP 18; TEMP 36.2; O2SAT 94
[2024-07-30] MEDS: LACTATED RINGERS 1,000 ML 100 ML IV CONT (04:32)
[2024-07-30] MEDS: MORPHINE SULFATE (*CRX) 4 MG/ML INJ IV PUSH (04:32)
[2024-07-30 04:57] LABS: Hematocrit 40.5 % (42.0-52.0); Hemoglobin 12.6 g/dL (14.0-18.0); Mean Corpuscular HGB Conc 31.1 g/dl (32-36); Mean Corpuscular Hemoglobin 29.8 pg (26-34); Mean Corpuscular Volume 95.7 fl (80-100); Mean Platelet Volume 10.3 fl (7.4-10.4); Platelet Count Result 241 k/mm3 (150-375); Red Blood Count 4.23 M/mm3 (4.6-6.20); Red Cell Distribution Width 13.2 % (11.5-14.5); White Blood Count 9.8 K/mm3 (4.5-10.0)
[2024-07-30 05:07] LABS: Anion Gap 7 mmol/L (4-12); Blood Urea Nitrogen 13 mg/dL (9-20); Calcium 8.5 mg/dL (8.4-10.2); Carbon Dioxide 28 mmol/L (22-30); Chloride 102 mmol/L (98-107); Estimated CRCL calculation 114 ml/min; Estimated Glomerular Filt Rate > 60; Glucose 151 mg/dL (65-110); Potassium 4.2 mmol/L (3.4-5.0); Sodium 137 mmol/L (137-145)
[2024-07-30 05:56] VITALS: BP 131/89; PULSE 76; RESP 18; TEMP 36.9; O2SAT 95
[2024-07-30] MEDS: DESVENLAFAXINE SUCCINATE 50 MG TAB.ER.24H PO (09:05)
[2024-07-30] MEDS: CANDESARTAN CILEXETIL 16 MG TABLET 32 MG PO (09:05)
[2024-07-30] MEDS: TAMSULOSIN HCL 0.4 MG CAPSULE PO (09:05)
[2024-07-30] MEDS: oxyCODONE/ACETAMINOPHEN (*CRX) 5-325 MG TABLET 1 TABLET PO ×2 (09:05→16:41)
[2024-07-30] MEDS: ENOXAPARIN 30 MG/0.3 ML SYRINGE SUB-Q (09:07)
--- NOTE | 2024-07-30 10:44 | WPDANESPN ---
Anes - Prog Note Post-Op Date/Time: 07/30/24 10:44 Vital Signs: Last Vital Signs Temp 36.9 C 07/30/24 05:56 Pulse 76 07/30/24 05:56 Resp 18 07/30/24 05:56 BP 131/89 07/30/24 05:56 Pulse Ox 95 07/30/24 05:56 O2 Del Method Room Air 07/30/24 01:31 O2 Flow Rate 2 07/29/24 16:10 FiO2 21 07/30/24 01:31 Pain Score (VAS): 0 I/O: Intake & Output 07/29/24 07/30/24 07/30/24 23:59 07:59 15:59 Intake Total 340 1000 Output Total 900 Balance -560 1000 Laboratory Tests 07/30/24 04:15 07/30/24 04:15 07/30/24 04:15 WBC 9.8 RBC 4.23 L Hgb 12.6 L Hct 40.5 L MCV 95.7 MCH 29.8 MCHC 31.1 L RDW 13.2 Plt Count 241 MPV 10.3 Sodium 137 Potassium 4.2 Chloride 102 Carbon Dioxide 28 Anion Gap 7 BUN 13 D Creatinine 0.85 Estim Creat Clear Calc 114 Estimated GFR > 60 Glucose 151 H Calcium 8.5 Patient Feedback: Patient satisfied with anesthetic care.
[2024-07-30 13:56] VITALS: BP 160/98; PULSE 70; RESP 18; TEMP 36.9; O2SAT 99
--- NOTE | 2024-07-30 16:14 | P.DS_ITS ---
DS: Admitting Diagnosis Discharge Date 07/30/2024 Admitting Diagnosis Incarcerated epigastric hernia, umbilical hernia DS: Discharge Diagnosis Discharge Diagnosis (1) Umbilical hernia without obstruction and without gangrene: Code(s): K42.9 - Umbilical hernia without obstruction or gangrene Status: Acute (2) Incarcerated epigastric hernia: Code(s): K43.6 - Other and unspecified ventral hernia with obstruction, without gangrene Status: Acute DS: Summary Hospital Course Reason for hospitalization: This is a patient with a right-sided upper abdominal hernia for the last 2 or 3 years that had been increasing in size for the past few months. He was seen as an outpatient by Dr. Beaulieu and had been having pain associated with the hernia. They had discussions and decided to proceed with surgery. He presented on 07/29/2024 for robotic laparoscopic repair incarcerated epigastric ventral hernia and repair incarcerated umbilical hernia by Dr. Beaulieu. Hospital Course: Patient underwent robotic laparoscopic repair incarcerated epigastric ventral hernia with 5 cm defect with mesh, robotic laparoscopic repair incarcerated umbilical hernia with 4 cm defect with mesh by Dr. Beaulieu on 07/29/2024. His diet was advanced postoperatively, which he tolerated. Incisional pain was well controlled. He was tolerating activity. No acute issues overnight. Patient was stable for discharge on postop day 1. Status at Discharge Functional status at discharge: independent ambulation Overall status at discharge: patient is progressing back to baseline Time Spent with Patient Time attestation: Total time spent providing and/or coordinating discharge services: Time spent: Less than 30 minutes Exam GI: Inspection: non-distended and incision (incisions dry and intact) GI Palp: Yes Soft to palpation, Yes Tenderness to palpation present (GI) (incisional), No Guarding due to palpation present (GI) and No Hernia present Auscultation: normal bowel sounds DS: Data Data Completed and Pending Pending studies at discharge: Pending at discharge 07/29/24 14:56 Surgical [PTH] Routine Labs on day of discharge: Labs from last 24 hours 07/30/24 04:15 WBC 9.8 RBC 4.23 L Hgb 12.6 L Hct 40.5 L MCV 95.7 MCH 29.8 MCHC 31.1 L RDW 13.2 Plt Count 241 MPV 10.3 Sodium 137 Potassium 4.2 Chloride 102 Carbon Dioxide 28 Anion Gap 7 BUN 13 D Creatinine 0.85 Estim Creat Clear Calc 114 Estimated GFR > 60 Glucose 151 H Calcium 8.5 Procedures/Treatments: Procedures Operation Date: 07/29/24 10:30 Actual Procedure Side Surgeon p Robotic Repair Incarcerated Epigastric Hernia with Mesh, Robotic Repair Incarcerated Umbilical Hernia with Mesh Dario Beaulieu MD Discharge Plan Discharge Patient Disposition: Home Discharge Instructions: DISCHARGE INSTRUCTIONS FOR HERNIA AND LAP SUDHIR SURGERIES DR. BEAULIEU 1. May shower the day after surgery over incisions. 2. Call office for: * Wound increasingly painful or bleeding * Vomiting * Fever of greater than 101 degrees 3. Expect some blood on dressing and old blood on skin. 4. If no bowel movement for three days, take 1 oz. (30 ml) Milk of Magnesia, if no results, take Fleets enema. 5. No heavy lifting > 10-15 pounds x 4-6 weeks for hernia repairs 6. No driving for 3 days or while taking narcotic pain medications. 7. Inguinal hernias (men): Ice to groin for 8 hours: 30 minutes on, 30 minutes off. Fresh ice every 2 hours 8. Up walking 10-30 minutes three times per day. 9. Resume previous home medications. 10. Follow-up with Dr. beaulieu in the office as previously scheduled. 11. Oral pain medications prescription to be sent home with patient. 12. NUTRITION: Start out by drinking fluids and increase your diet as tolerated. If you experience nausea, try dry toast, crackers, and 7-UP. If nausea or vomiting persists, contact your surgeon’s office. Patient Instructions: Umbilical Hernia Repair (DC) Patient Language: Citizen Of [place] Stand Alone Forms: General Discharge Instructions Follow-up/Referrals: Dario Beaulieu MD [Physician] - Keep Reg. Scheduled Appt. Discharge Medications: New sennosides-docusate sodium 8.6-50 mg capsule 1 tab-cap PO HS Qty: 14 0RF oxycodone-acetaminophen 5-325 mg Tablet 1 tablet PO Q4-6H PRN (Reason: Pain Rated 4-6) Qty: 20 0RF polyethylene glycol 3350 [Miralax] 17 gram Powder In Packet 17 g PO QAM Qty: 14 0RF Continued tamsulosin 0.4 mg capsule 0.4 mg PO DAILY meloxicam 15 mg tablet 15 mg PO DAILY Qty: 90 3RF desvenlafaxine succinate 50 mg tablet extended release 24 hr See Rx Instructions .ROUTE .COMPLEX Qty: 90 3RF Dose Instruction: TAKE 1 TABLET BY MOUTH EVERY DAY Rx Instructions: TAKE 1 TABLET BY MOUTH EVERY DAY candesartan 32 mg tablet 32 mg PO DAILY Qty: 90 3RF esomeprazole magnesium 40 mg capsule,delayed release(DR/EC) 40 mg PO BID Qty: 180 2RF phentermine 37.5 mg tablet 37.5 mg PO DAILY Qty: 30 3RF Rx Instructions: must administer 30 minutes before or 1-2 hours after breakfast No Action metoclopramide HCl 10 mg tablet 10 mg PO QHS Qty: 30 2RF Quality VTE Prophylaxis VTE prophylaxis: mechanical ordered
== END 2024-07-30 17:30 | disposition home or self-care (01) ==
LOC: ANHSURGERY 08:22 → ANH2MED 16:45
PROVIDERS: PCP Family Medicine Adolescent Medicine; Visit Provider Surgery
PROC: (CPT 49594; principal; 2024-07-29 10:30)
DX: K43.6 Other and unspecified ventral hernia with obstruction, without gangrene (principal); K42.0 Umbilical hernia with obstruction, without gangrene; E66.01 Morbid (severe) obesity due to excess calories; Z68.41 Body mass index [BMI] 40.0-44.9, adult
CPT/HCPCS: 49594; S2900; 36415; 80048; 85027; 88302; A9270; C1781; J0690; J1100; J1171; J1650; J1885; J2250; J2270; J2405; J2704; J3010; J7030; J7120

== ENCOUNTER 2024-08-10 09:54 | Emergency (ER) | payer OTHER, SELFPAY ==
[2024-08-10 10:01] VITALS: BP 141/100; PULSE 87; RESP 16; TEMP 36.4; O2SAT 97
[2024-08-10 10:08] LABS: EDUAAPPEAR Cloudy; EDUABILI Negative (Negative); EDUABLOOD 2+ (Negative); EDUACOLOR1 Yellow; EDUAGLUCOSE Negative (Negative); EDUAKETONE Negative (Negative); EDUALEUKO 2+ (Negative); EDUANITRATE Negative (Negative); EDUAPROTEIN Trace (Negative); EDUASPGRAVITY 1.025; EDUAUROBILI 0.2
--- NOTE | 2024-08-10 10:09 | ED_ITS ---
HPI - Male Genitourinary General Chief complaint: Urogenital-Male Stated complaint: Uti Symptoms Time Seen by Provider: 08/10/24 10:09 Source: patient Mode of arrival: ambulatory Limitations: no limitations History of Present Illness HPI Narrative: 64-year-old male presents with complaint of urinary frequency, urgency, dribbling and dysuria for 2 days. Afebrile. Reports some fatigue. All systems reviewed and negative except as noted above. Related Data Home Medications ?Medication ?Instructions ?Recorded ?Confirmed ?Last Taken ?Type tamsulosin 0.4 mg capsule 0.4 mg PO DAILY 05/21/24 07/22/24 06/16/24 History Allergies Allergy/AdvReac Type Severity Reaction Status Date / Time Quinolones Allergy Severe Rash Verified 08/10/24 10:17 atorvastatin Allergy Unknown Joint Pain Verified 08/10/24 10:17 Review of Systems Review of Systems: CONSTITUTIONAL: Denies fever, chills, or sweats. EYES: Denies visual changes, redness, or discharge. ENT: Denies rhinorrhea, congestion, sore throat, or otalgia. CARDIOVASCULAR: Denies chest pain, palpitations, or edema. RESPIRATORY: Denies cough or dyspnea. GASTROINTESTINAL: Denies abdominal pain, nausea, vomiting, or diarrhea. GENITOURINARY: Reports dysuria, urinary frequency, urgency, dribbling SKIN: Denies rash or itching. MUSCULOSKELETAL: Denies back pain, joint pain, or myalgia. NEUROLOGIC: Denies headache, numbness, or weakness. PSYCHIATRIC: Denies anxiety or depression. All other systems reviewed are negative, except as documented in HPI. [facility] Past Medical History Medical History (Updated 08/10/24 @ 10:17 by Chelsea Espinoza NP) Colon cancer screening Rotator cuff tear, right Massive deficiency Right distal ureteral calculus Arthritis Mixed anxiety and depressive disorder Ventral hernia Morbid (severe) obesity due to excess calories Essential (primary) hypertension Pure hypercholesterolemia, unspecified Hepatic steatosis (11/2018) Kidney stone on right side Bladder outlet obstruction Right ureteral calculus GERD (gastroesophageal reflux disease) Surgical History Surgical History (Updated 07/30/24 @ 05:22 by Braulio Luu MD) History of ventral hernia repair (07/2024) With umbilical hernia repair History of foot surgery (10/2023) Left triple arthrodesis w/ graft H/O dilation of urethra H/O vasectomy H/O cystoscopy History of tonsillectomy Family History Family History Father Diabetes mellitus Hypertension Melanoma Heart disease Mother Hypertension Dementia Lymphedema Lymphoma Thyroid disorder Heart disease Grandparent Throat cancer Hypertension Heart disease Sibling Hypertension Social History Social History Social History: He is and has 2 children. 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 Patient is a lifelong nonsmoker. He rarely drinks. His is the durable power employment attorney for healthcare. Code status full code Smoking status: Never smoker Second hand tobacco smoke exposure: No Alcohol intake: current Drinks per week: 1 Alcohol use details: Occasionally Substance use: never Substance use type: does not use Do You Feel Safe in your Home?: Yes Lack of Transportation: No Lack of Food: Never True Current Housing: I Have Housing Concerned About Future Housing: No Difficulty Paying Gas/Electric Bills: No Difficulty Paying for Meds: No Currently Unemployed: No Education: Master's Degree or Higher Difficulty w/ Childcare or Family Care: No Living arrangements: with family Additional living arrangements comments: with sp Occupation/Education: retired Gender identity (if verbalized by the patient): Male Sexual Orientation (if Verbalized by the Patient): Straight or Heterosexual Spiritual care concerns: No Agree to blood products: Yes Comments At time of signature, agree with nursing past medical, surgical, social and fa siri history. There is no relevant family history pertinent to the presenting complaint. Exam Narrative: GENERAL: This is a well-nourished, well-developed patient, in no apparent distress. HEAD: normocephalic, atraumatic. EYES: PERRL. Sclera clear/white. Vision is grossly intact. EARS: External ears normal NOSE: External nose normal NECK: Neck supple, non-tender without lymphadenopathy, masses or thyromegaly. CARDIOVASCULAR: Regular rate and rhythm without murmurs, gallops, or rubs. RESPIRATORY: Clear to auscultation. Breath sounds equal bilaterally. No wheezes, rales, or rhonchi. SKIN: warm, Dry, intact with no suspicious lesions or rash, good texture and turgor. NEURO: awake, alert, and oriented to person, place and time. There were no obvious focal neurologic abnormalities. EXTREMITIES: No joint tenderness, effusion, or edema noted. Course Course Level of Care: Express Care Visit Vital Signs Vital signs: Vital Signs Temperature 36.4 C L 08/10/24 10:01 Pulse Rate 87 08/10/24 10:01 Respiratory Rate 16 08/10/24 10:01 Blood Pressure 141/100 H 08/10/24 10:01 Pulse Oximetry 97 08/10/24 10:01 Temperature 36.4 C L 08/10/24 10:01 Pulse Rate 87 08/10/24 10:01 Respiratory Rate 16 08/10/24 10:01 Blood Pressure 141/100 H 08/10/24 10:01 Pulse Oximetry 97 08/10/24 10:01 Reviewed MDM - Male Genitourinary MDM Narrative Medical decision making narrative: Urinalysis positive leukocytes, positive blood. Will treat with Augmentin for urinary tract infection. No prior urine culture to review. Urine culture ordered for this visit. Patient is well-appearing, nontoxic. Lab Data Labs: Lab Results 08/10/24 Range/Units 10:07 POC Urine Color Yellow POC Urine Clarity Cloudy POC Urine pH 7.0 POC Ur Specif [place] 1.025 POC Urine Protein Trace (Negative) POC Ur Glucose (UA) Negative (Negative) POC Urine Ketones Negative (Negative) POC Urine Blood 2+ (Negative) POC Urine Nitrite Negative (Negative) POC Urine Bilirubin Negative (Negative) POC Urine Urobilinogen 0.2 POC U Leukocyte Esteras 2+ (Negative) Discharge Plan Discharge Clinical Impression: Urinary tract infection Qualifiers: Urinary tract infection type: site unspecified Hematuria presence: with hematuria Qualified Code(s): N39.0 - Urinary tract infection, site not specified Patient Disposition: Home Condition: Stable Instructions: Antibiotic Form, Urinary Tract Infection in Men (ED) Additional Instructions: Take antibiotic as prescribed until gone. Drink at least 64 oz of water a day. See your doctor if symptoms are not improving. If you have severe pain, fever, vomiting go to the ER. Patient Language: [place] Prescriptions: New phenazopyridine [Pyridium] 200 mg tablet 200 mg PO TID PRN (Reason: pain) 3 Days Qty: 10 0RF amoxicillin-pot clavulanate 875-125 mg tablet 1 tablet PO Q12H 10 Days Qty: 20 0RF No Action tamsulosin 0.4 mg capsule 0.4 mg PO DAILY sennosides-docusate sodium 8.6-50 mg capsule 1 tab-cap PO HS Qty: 14 0RF oxycodone-acetaminophen 5-325 mg Tablet 1 tablet PO Q4-6H PRN (Reason: Pain Rated 4-6) Qty: 20 0RF polyethylene glycol 3350 [Miralax] 17 gram Powder In Packet 17 g PO QAM Qty: 14 0RF meloxicam 15 mg tablet 15 mg PO DAILY Qty: 90 3RF desvenlafaxine succinate 50 mg tablet extended release 24 hr See Rx Instructions .ROUTE .COMPLEX Qty: 90 3RF Dose Instruction: TAKE 1 TABLET BY MOUTH EVERY DAY Rx Instructions: TAKE 1 TABLET BY MOUTH EVERY DAY candesartan 32 mg tablet 32 mg PO DAILY Qty: 90 3RF esomeprazole magnesium 40 mg capsule,delayed release(DR/EC) 40 mg PO BID Qty: 180 2RF phentermine 37.5 mg tablet 37.5 mg PO DAILY Qty: 30 3RF Rx Instructions: must administer 30 minutes before or 1-2 hours after breakfast metoclopramide HCl 10 mg tablet 10 mg PO QHS Qty: 30 2RF Follow-up/Referrals: Braulio Luu MD [Primary Care Provider] - Time of Disposition: 10:18
== END 2024-08-10 10:24 | disposition home or self-care (01) ==
PROVIDERS: Emergency Provider Nurse Practitioner Family; PCP Family Medicine Adolescent Medicine
DX: N39.0 Urinary tract infection, site not specified (principal); I10 Essential (primary) hypertension; E78.00 Pure hypercholesterolemia, unspecified; K76.0 Fatty (change of) liver, not elsewhere classified; K21.9 Gastro-esophageal reflux disease without esophagitis; M19.90 Unspecified osteoarthritis, unspecified site; Z98.52 Vasectomy status; E66.01 Morbid (severe) obesity due to excess calories; Z68.29 Body mass index [BMI] 29.0-29.9, adult
CPT/HCPCS: 81003; 87086; 99213; G0463